=== PATIENT | male | born 1945 | race Caucasian/White ===

== ENCOUNTER 2016-12-15 17:57 | Inpatient (IN) | payer OTHER, MEDICARE ==
[~2016-12-15] VITALS: Ht 177.8 cm; Wt 91.8 kg
[~2016-12-15 17:57] MED LIST: ASPI81TA28 PO; DBT/5 PO; EZET10TA47 PO; HYDR25TA4 PO; LISI-792 PO; METF1000 PO; METO-551 PO; SIMV20TA2 PO
[2016-12-15] MEDS ORDERED: ACETAMINOPHEN 500 MG TAB PO STA (18:16)
[2016-12-15] MEDS ORDERED: SODIUM CHLORIDE 0.9% 1000ML 1,000 ML IV STA (18:16)
--- NOTE | 2016-12-15 18:44 | EMERGENCY ROOM VISIT NOTE ---
History Report prepared by Fox: Flip Crain Under the Supervision of: Dr. Giancarlo Marcano D.O. First contact with patient: 18:11 Chief Complaint: CONFUSION Stated Complaint: DOESNT KNOW STUFF WORRIED ABOUT STROKE Nursing Triage Summary: Pt presents accompanied by who is concerned pt had a stroke. states pt is confused. Left sided facial droop. Grandson states pt started stumbling around noon, "doing weird things around 1500." Denies hx of CVA. History of Present Illness The patient is a 71 year old male who presents to the Emergency Room with complaints of persistent stroke-like symptoms that started 6 hours ago. Per patient's , the patient developed a cold yesterday and complained of cough, congestion, and runny nose. Per patient's grandson, the patient was having difficulty keeping his balance and stumbling in the hallway when they were at [facility] earlier today. About three hours ago, the patient's grandson noted that he had some difficulty getting into the car and then seemed slightly confused on the car ride back. Upon arriving back at the patient's house, the patient seemed very confused and was speaking about [place]. At this time, the patient complains of a headache. The patient denies any urinary symptoms at this time, but the patient's grandson thinks the patient was urinating more frequently than normal throughout the day. The patient denies chest pain, shortness of breathing, neck pain, nausea, or vomiting at this time. Source of History: patient, family Onset: 6 hours ago Position: other (global) Timing: other (persistent) Associated Symptoms: + cough, + headache, No SOB, No chest pain, No nausea, No neck pain, No vomiting Note: Other associated symptoms: cold-like symptoms, congestion, runny nose, difficulty with balance/ stumbling, confusion, Review of Systems See HPI for pertinent positives & negatives. A total of 10 systems reviewed and were otherwise negative. Past Medical & Surgical Medical Problems: (1) Altered mental status (2) Back surgery (3) Carpal tunnel syndrome Family History No pertinent family history Social History Smoking Status: Never Smoker Marital Status: Housing Status: lives with significant other Occupation Status: retired Current/Historical Medications Scheduled Aspirin (Aspirin Ec), 81 MG PO DAILY Glyburide (Diabeta), 7.5 MG PO BID Hydrochlorothiazide (Hctz), 25 MG PO Q2D Lisinopril (Zestril), 20 MG PO BID Metformin Hcl (Glucophage), 1,000 MG PO BIDM Metoprolol Tartrate (Lopressor), 50 MG PO BID Simvastatin (Zocor), 20 MG PO HS Allergies Coded Allergies: Pregabalin (Verified Allergy, Unknown, disorientation, 12/15/16) Physical Exam Vital Signs Date Time Temp Pulse Resp B/P Pulse Ox O2 Delivery O2 Flow Rate FiO2 12/15/16 20:25 36.9 92 18 141/76 98 Room Air 12/15/16 18:25 98 Room Air 12/15/16 18:24 110 12/15/16 18:09 37.6 115 18 165/78 97 Room Air Physical Exam GENERAL: Patient is awake, alert, slow to answer questions, but does not appear to be in pain or uncomfortable. EYES: The conjunctivae are clear. The pupils are round and reactive. EARS, NOSE, MOUTH AND THROAT: The nose is without any evidence of any deformity. Mucous membranes are dry tongue is midline NECK: The neck is nontender and supple. RESPIRATORY: Lung sounds diminished throughout, scattered rhonchi, no tachypnea or conversational dyspnea was appreciated. CARDIOVASCULAR: Tachycardic but regular, no definite murmur was noted to oscillation. GASTROINTESTINAL: The abdomen is soft. Bowel sounds are present in all quadrants. Abdomen is nontender BACK: No midline tenderness or or step-off noted range of motion in flexion extension as well as rotation no signs of muscle spasm noted MUSCULOSKELETAL/EXTREMITIES: There is no evidence of gross deformity full range of motion is noted in the hips and shoulders SKIN: There is no obvious evidence of any rash. There are no petechiae, pallor or cyanosis noted. NEUROLOGIC: Patient is awake alert and oriented to person and place, but appears to be somewhat confused to situation, strength was symmetric, there was no facial droop appreciated. Medical Decision & Procedures ER Provider Diagnostic Interpretation: Radiology results as stated below per my review and radiologist interpretation: SINGLE VIEW CHEST CLINICAL HISTORY: Sepsis. FINDINGS: An AP, portable, upright chest radiograph is compared to study dated 09/30/2012. The examination is degraded by portable technique and patient rotation. The heart is top normal for projection. There is atherosclerotic calcification of the thoracic aorta. The lungs and pleural spaces are clear. No pneumothorax is seen. The skeletal structures are osteopenic. The bony thorax is grossly intact. IMPRESSION: No acute cardiopulmonary abnormality. Electronically signed by: Zeeshan Mendoza M.D. 12/15/2016 6:44 PM Dictated Date/Time: 12/15/2016 6:[address] SCAN OF THE BRAIN WITHOUT IV CONTRAST CLINICAL HISTORY: Change in mental status. COMPARISON STUDY: CT of the brain dated 04/29/2013. TECHNIQUE: Unenhanced axial CT scan of the brain is performed from the vertex to the skull base. CT DOSE: 614.27 mGy.cm FINDINGS: Brain parenchyma: There are age-related involutional changes noting moderate patchy subcortical and periventricular microangiopathic change. There is no hemorrhage, mass effect, or evidence of acute territorial ischemia by CT criteria. Sales-white matter is preserved. No extra-axial fluid collection is seen. Ventricles, sulci, cisterns: Prominent secondary to involutional change. Intracranial vasculature: There is atherosclerotic calcification of the cavernous carotid arteries. Calvarium: Unremarkable. Sinuses and mastoids: There is trace mucosal thickening within the left maxillary antrum, as well as the left ethmoid and left frontal sinuses. The remaining visualized paranasal sinuses are clear. The mastoid air cells are well pneumatized. Orbits: The bony orbits are grossly intact. IMPRESSION: There is no hemorrhage, mass effect, or evidence of acute territorial ischemia by CT criteria. Electronically signed by: Zeeshan Mendoza M.D. 12/15/2016 6:55 PM Dictated Date/Time: 12/15/2016 6:51 PM Laboratory Results 12/15/16 18:20 Red Blood Count 4.41, Mean Corpuscular Volume 92.3, Mean Corpuscular Hemoglobin 31.7, Mean Corpuscular Hemoglobin Concent 34.4, Mean Platelet Volume 10.7, Neutrophils (%) (Auto) 78.7, Lymphocytes (%) (Auto) 13.3, Monocytes (%) (Auto) 7.3, Eosinophils (%) (Auto) 0.1, Basophils (%) (Auto) 0.2, Neutrophils # (Auto) 7.88, Lymphocytes # (Auto) 1.33, Monocytes # (Auto) 0.73, Eosinophils # (Auto) 0.01, Basophils # (Auto) 0.02 12/15/16 18:20 Test 12/15/16 18:10 12/15/16 18:20 12/15/16 18:30 12/15/16 18:47 Bedside Glucose 305 mg/dl (70-99) White Blood Count 10.01 K/uL (4.8-10.8) Red Blood Count 4.41 M/uL (4.7-6.1) Hemoglobin 14.0 g/dL (14.0-18.0) Hematocrit 40.7 % (42-52) Mean Corpuscular Volume 92.3 fL (80-100) Mean Corpuscular Hemoglobin 31.7 pg (25-34) Mean Corpuscular Hemoglobin Concent 34.4 g/dl (32-36) Platelet Count 95 K/uL (130-400) Mean Platelet Volume 10.7 fL (7.4-10.4) Neutrophils (%) (Auto) 78.7 % Lymphocytes (%) (Auto) 13.3 % Monocytes (%) (Auto) 7.3 % Eosinophils (%) (Auto) 0.1 % Basophils (%) (Auto) 0.2 % Neutrophils # (Auto) 7.88 K/uL (1.4-6.5) Lymphocytes # (Auto) 1.33 K/uL (1.2-3.4) Monocytes # (Auto) 0.73 K/uL (0.11-0.59) Eosinophils # (Auto) 0.01 K/uL (0-0.5) Basophils # (Auto) 0.02 K/uL (0-0.2) RDW Standard Deviation 43.3 fL (36.4-46.3) RDW Coefficient of Variation 12.9 % (11.5-14.5) Immature Granulocyte % (Auto) 0.4 % Immature Granulocyte # (Auto) 0.04 K/uL (0.00-0.02) Platelet Estimate DECREASED Erythrocyte Sedimentation Rate 18 mm/hr (0-14) Anion Gap 6.0 mmol/L (3-11) Est Creatinine Clear Calc Drug Dose 55.9 ml/min Estimated GFR () 58.6 Estimated GFR (Non- 50.5 BUN/Creatinine Ratio 12.8 (10-20) Calcium Level 9.6 mg/dl (8.5-10.1) Phosphorus Level 1.5 mg/dl (2.5-4.9) Magnesium Level 1.9 mg/dl (1.8-2.4) Total Bilirubin 0.6 mg/dl (0.2-1) Aspartate Amino Transf (AST/SGOT) 16 U/L (15-37) Alanine Aminotransferase (ALT/SGPT) 24 U/L (12-78) Alkaline Phosphatase 85 U/L (45-117) Total Creatine Kinase 110 U/L (39-308) Creatine Kinase MB 1.6 ng/ml (0.5-3.6) Creatine Kinase MB Ratio 1.5 (0-3.0) Troponin I < 0.015 ng/ml (0-0.045) C-Reactive Protein 1.07 mg/dl (0-0.29) Pro-B-Type Natriuretic Peptide 121 pg/ml (0-900) Total Protein 8.0 gm/dl (6.4-8.2) Albumin 4.2 gm/dl (3.4-5.0) Globulin 3.8 gm/dl (2.5-4.0) Albumin/Globulin Ratio 1.1 (0.9-2) Lipase 192 U/L (73-393) Beta-Hydroxybutyric Acid 1.01 mg/dL (0.2-2.81) Influenza Type A (RT-PCR) Neg for Influ A (NEG) Influenza Type A Antigen Neg for Influ A (NEG) Influenza Type B Antigen Neg for Influ B (NEG) Influenza Type B (RT-PCR) Neg for Influ B (NEG) Bedside Lactic Acid Venous 2.63 mmol/L (0.90-1.70) Test 12/15/16 19:43 12/15/16 20:00 Prothrombin Time 11.3 SECONDS (9.0-12.0) Prothromb Time International Ratio 1.1 (0.9-1.1) Activated Partial Thromboplast Time 25.6 SECONDS (21.0-31.0) Partial Thromboplastin Ratio 1.0 Venous Blood pH 7.44 (7.36-7.41) Venous Blood Partial Pressure CO2 39 mmHg (38.0-50.0) Venous Blood Partial Pressure O2 34 mmHg Venous Blood HCO3 26 mmol/L Venous Blood Oxygen Saturation 65.5 % Venous Blood Base Excess 1.9 mmol/L Thyroid Stimulating Hormone (TSH) 0.763 uIu/ml (0.300-4.500) Free Thyroxine 0.81 ng/dl (0.80-1.60) Urine Color YELLOW Urine Appearance CLEAR (CLEAR) Urine pH 5.5 (4.5-7.5) Urine Specific [place] 1.015 (1.000-1.030) Urine Protein NEG (NEG) Urine Glucose (UA) 3+ (NEG) Urine Ketones NEG (NEG) Urine Occult Blood TRACE (NEG) Urine Nitrite NEG (NEG) Urine Bilirubin NEG (NEG) Urine Urobilinogen NEG (NEG) Urine Leukocyte Esterase NEG (NEG) Urine WBC (Auto) 0 /hpf (0-5) Urine RBC (Auto) 0-4 /hpf (0-4) Urine Hyaline Casts (Auto) 0 /lpf (0-5) Urine Epithelial Cells (Auto) 0-5 /lpf (0-5) Urine Bacteria (Auto) NEG (NEG) Laboratory results per my review. Medications Administered Medications (Trade) Dose Ordered Sig/Bryson Route Start Time Stop Time Status Last Admin Dose Admin Sodium Chloride (Nss 1000ml) 1,000 ml @ 999 mls/hr Q1H1M STAT IV 12/15/16 18:16 12/15/16 19:16 DC 12/15/16 18:34 999 MLS/HR Acetaminophen 1000 mg 1,000 mg NOW STAT PO 12/15/16 18:16 12/15/16 18:17 DC 12/15/16 18:34 1,000 MG Ceftriaxone Sodium/Dextrose (Rocephin Inj/D5 50ml) 70 ml @ 100 mls/hr ONE STAT IV 12/15/16 19:56 12/15/16 20:37 DC 12/15/16 20:41 100 MLS/HR ECG Indication: altered mental status Rate (beats per minute): 104 Rhythm: sinus tachycardia Findings: 1st degree AV block, RBBB (incomplete RBBB pattern noted), other (no PVCs ) Comparison ECG Date: increased rate otherwise no change when compared to EKG from April 30, 2012 ED Course 1810: The patient was evaluated in room B1. A complete history and physical examination were performed. 1815: Ordered Tylenol Tab 1000 mg PO, NSS 1000 ml @ 999 mls/hr IV. 1929: At this time, I reevaluated the patient and he was resting. 1955: Ordered Ceftriaxone Sodium 2000 mg/ Dextrose 70 ml @ 100 mls/hr IV. 2015: At this time, I updated the patient on test findings and his results. 2027: At this time, I discussed the patient's case with Dr. Menjivar / [facility] [place] [facility] and they agreed to accept the patient for further evaluation. Medical Decision Differential diagnosis: Etiologies such as metabolic, infection, hypoglycemia, electrolyte abnormalities , cardiac sources, intracerebral event, toxicologic, neurologic, as well as others were entertained. Nursing notes reviewed. Additional history is obtained from the patient's family members. The patient is a 71-year-old male who presented to emergency department for an evaluation of cough and altered mental status. The patient was found have a low- grade fever and he's been complaining of cough and sore throat over the last few days. The patient has been having a slow decline in his mental status over the last few months according to his son but his feels that his condition has changed significantly over the last 24 hours. The patient did not have meningismus. I discussed the patient's laboratory and radiographic studies with him and his family members. He was treated with IV fluids and IV antibiotics in the emergency department. On subsequent reevaluation he was only somewhat improved. The patient has a history of thrombocytopenia. His platelet count was still low in the emergency department this evening. Because the patient's ongoing symptoms I discussed his case with the on-call [facility] hospitalist group. I'm unsure if this represents an infectious process or possibly a neurologic process. I feel further observation as well as possible further neuroimaging may be beneficial. Consults Time Called: 2022 Consulting Physician: Dr. Menjivar/ Dr. Cowan - [facility] [place] Returned Call: 2027 At this time, I discussed the patient's case with Dr. Menjivar / Dr. Cowan and they agreed to accept the patient for further evaluation. Impression Primary Impression: Altered mental status Additional Impression: Fever Scribe Attestation The scribe's documentation has been prepared under my direction and personally reviewed by me in its entirety. I confirm that the note above accurately reflects all work, treatment, procedures, and medical decision making performed by me. Departure Information Dispostion Being Evaluated By Hospitalist Олег Arambula M.D. (PCP) Problem Qualifiers Primary Impression: Altered mental status Altered mental status type: unspecified Qualified Codes: R41.82 - Altered mental status, unspecified Additional Impression: Fever Fever type: unspecified Qualified Codes: R50.9 - Fever, unspecified
--- NOTE | 2016-12-15 18:56 | DIAGNOSTIC IMAGING REPORT ---
CT SCAN OF THE BRAIN WITHOUT IV CONTRAST CLINICAL HISTORY: Change in mental status. COMPARISON STUDY: CT of the brain dated 04/29/2013. TECHNIQUE: Unenhanced axial CT scan of the brain is performed from the vertex to the skull base. CT DOSE: 614.27 mGy.cm FINDINGS: Brain parenchyma: There are age-related involutional changes noting moderate patchy subcortical and periventricular microangiopathic change. There is no hemorrhage, mass effect, or evidence of acute territorial ischemia by CT criteria. Sales-white matter is preserved. No extra-axial fluid collection is seen. Ventricles, sulci, cisterns: Prominent secondary to involutional change. Intracranial vasculature: There is atherosclerotic calcification of the cavernous carotid arteries. Calvarium: Unremarkable. Sinuses and mastoids: There is trace mucosal thickening within the left maxillary antrum, as well as the left ethmoid and left frontal sinuses. The remaining visualized paranasal sinuses are clear. The mastoid air cells are well pneumatized. Orbits: The bony orbits are grossly intact. IMPRESSION: There is no hemorrhage, mass effect, or evidence of acute territorial ischemia by CT criteria. Electronically signed by: Zeeshan Mendoza M.D. 12/15/2016 6:55 PM Dictated Date/Time: 12/15/2016 6:51 PM
[2016-12-15 19:07] LABS: HEMATOCRIT 40.7 % (42-52); MEAN CELL VOLUME 92.3 fL (80-100); MEAN CORPUSCULAR HEMOGLOBIN 31.7 pg (25-34); MEAN CORPUSCULAR HGB CONC 34.4 g/dl (32-36); RED BLOOD COUNT 4.41 M/uL (4.7-6.1); WHITE BLOOD COUNT 10.01 K/uL (4.8-10.8)
[2016-12-15 19:30] LABS: ALT/SGPT 24 U/L (12-78); AST/SGOT 16 U/L (15-37); BLOOD UREA NITROGEN 18 mg/dl (7-18); BUN/CREATININE RATIO 12.8 (10-20); CALCIUM 9.6 mg/dl (8.5-10.1); CARBON DIOXIDE 29 mmol/L (21-32); CHLORIDE 104 mmol/L (98-107); GLUCOSE 305 mg/dl (70-99); MAGNESIUM 1.9 mg/dl (1.8-2.4); POTASSIUM 3.6 mmol/L (3.5-5.1); SODIUM 139 mmol/L (136-145)
[2016-12-15 19:36] LABS: MEAN PLATELET VOLUME 10.7 fL (7.4-10.4); PLATELET COUNT 95 K/uL (130-400)
[2016-12-15 19:37] LABS: BASO % 0.2 %; BASO ABS # 0.02 K/uL (0-0.2); COMPLETE YES; EOS % 0.1 %; IG% 0.4 %; LYMPH % 13.3 %; LYMPH ABS # 1.33 K/uL (1.2-3.4); MONO % 7.3 %; NEUT % 78.7 %; PLT ESTIMATE DECREASED
[2016-12-15 19:46] LABS: ALB/GLOB RATIO 1.1 (0.9-2); ALKALINE PHOSPHATASE 85 U/L (45-117); BETA-HYDROXYBUTYRATE 1.01 mg/dL (0.2-2.81); C-REACTIVE PROTEIN 1.07 mg/dl (0-0.29); CKMB/CK RATIO 1.5 (0-3.0); PHOSPHORUS 1.5 mg/dl (2.5-4.9)
[2016-12-15] MEDS ORDERED: CEFTRIAXONE SOD INJ 2,000 MG in DEXTROSE 5% 50ML 50 ML IV STA (19:56)
[2016-12-15 20:05] LABS: INR 1.1 (0.9-1.1); PROTHROMBIN TIME (PATIENT) 11.3 SECONDS (9.0-12.0)
[2016-12-15 20:16] LABS: URINE APPEARANCE CLEAR (CLEAR); URINE BILIRUBIN NEG (NEG); URINE COLOR YELLOW; URINE EPITHELIAL CELL AUTO 0-5 /lpf (0-5); URINE NITRITE NEG (NEG); URINE PH 5.5 (4.5-7.5); URINE SPECIFIC GRAVITY 1.015 (1.000-1.030); UROBILINOGEN NEG (NEG)
[2016-12-15 20:17] LABS: MANUAL MICROSCOPIC REQUIRED? NO; REVIEW REQ? NO
[2016-12-15 20:19] LABS: VEN BLD GAS O2 SATURATION 65.5 %; VEN BLOOD GAS BASE EXCESS 1.9 mmol/L
[2016-12-15 20:52] LABS: THYROID STIMULATING HORMONE 0.763 uIu/ml (0.300-4.500)
[2016-12-15] MEDS ORDERED: POTASSIUM PHOS 3 MMOL/1 ML INFUSION IV STA (21:17)
[2016-12-15] MEDS ORDERED: DEXTROSE 50% 50 ML SYR IV PRN (21:30)
[2016-12-15] MEDS ORDERED: GLUCAGON FOR INJ 1 MG VIAL SQ PRN (21:30)
[2016-12-15] MEDS ORDERED: GLUCOSE 10 TABS/TUBE PO PRN (21:30)
[2016-12-15] MEDS ORDERED: ONDANSETRON INJ 2 MG/ML 2 ML VIAL IV PRN (21:30)
[2016-12-15] MEDS ORDERED: GLUCOSE 40% GEL 15 GM TUBE PO PRN (21:30)
[2016-12-15] MEDS ORDERED: POTASSIUM PHOSPHATE INJ 30 MMOL in SODIUM CHLORIDE 0.9% 500ML 500 ML IV STA (21:30)
[2016-12-15 21:39] LABS: INFLUENZA A PCR Neg for Influ A (NEG); INFLUENZA B PCR Neg for Influ B (NEG)
--- NOTE | 2016-12-15 21:43 | History and Physical ---
History & Physical Date & Time of Service: December 15, 2016 at 21:24 Chief Complaint: Doesnt Know Stuff Worried About Stroke Primary Care Physician: Олег Mcfarlane M.D. History of Present Illness Source: patient, family, spouse The patient is a 71-year-old male whose family has noted a gradual deterioration in mental functioning over the past year, and who has had a more abrupt bladder changer the past 24 hours. He reports some sinus congestion, a deeper voice than usual, and family reports increased frequency of urination. Patient denies any difficulty swallowing, hematuria, dysuria, flank pain or pelvic pain, change in bowel function or blood in stool. He did have a recent in the family, and the family had some questions as to whether this may have been a contributing factor in the past 24 hours. He does report that his legs seem to get generally weak toward the end of the day, but denies any focal weakness in arms or legs. Past Medical/Surgical History Medical Problems: (1) Back surgery Status: Resolved (2) Carpal tunnel syndrome Status: Chronic Family History No pertinent family history Social History Smoking Status: Never Smoker Smokeless Tobacco Use: No Alcohol Use: none Drug Use: none Marital Status: Housing status: lives with family Occupational Status: retired Immunizations History of Influenza Vaccine: Yes History of Tetanus Vaccine?: Yes History of Pneumococcal: Yes Pneumococcal Date: Nov 03, 2012 History of Hepatitis B Vaccine: No Multi-Drug Resistant Organisms History of MDRO: No Allergies Coded Allergies: Pregabalin (Verified Allergy, Unknown, disorientation, 12/15/16) Home Medications Scheduled Aspirin (Aspirin Ec), 81 MG PO DAILY Glyburide (Diabeta), 7.5 MG PO BID Hydrochlorothiazide (Hctz), 25 MG PO Q2D Lisinopril (Zestril), 20 MG PO BID Metformin Hcl (Glucophage), 1,000 MG PO BIDM Metoprolol Tartrate (Lopressor), 50 MG PO BID Simvastatin (Zocor), 20 MG PO HS Review of Systems The patient denies chest pain, palpitations, shortness of breath, lower extremity swelling, vision change, hearing change, sore throat, fevers, chills, sweats, weight change, fatigue, nausea, vomiting, abdominal pain, pelvic pain, blood in urine or stool, dysuria, lightheadedness, dizziness, headache, rash, abnormal bruising or bleeding, focal weakness, numbness or tingling in arms or legs, arthralgias or myalgias, back or neck pain, night sweats, or allergy symptoms. The review of systems is otherwise negative other than for that already noted above, and at least 10 systems have been reviewed. Physical Exam Vital Signs Date Time Temp Pulse Resp B/P Pulse Ox O2 Delivery O2 Flow Rate FiO2 12/15/16 20:25 36.9 92 18 141/76 98 Room Air 12/15/16 18:25 98 Room Air 12/15/16 18:24 110 12/15/16 18:09 37.6 115 18 165/78 97 Room Air The patient is awake, alert and oriented 3, face is flushed and appears dehydrated, lying in bed and in no acute distress. HEENT--PERRL, EOMI, mucous membranes and oropharynx dry. Neck--supple, no JVD or bruits, thyroid normal, trachea midline, no adenopathy. Heart--normal S1 and S2, no extra beats, no murmurs, rubs or gallops. Lungs--clear bilaterally with good air movement, no respiratory distress, no accessory muscle use. Abdomen--normal bowel sounds and soft, nontender and nondistended, no hernias or masses, no organomegaly. Extremities--no cyanosis, clubbing or edema. There are good distal pulses b/l. Dermatologic--normal skin turgor, normal color, warm and dry, no abnormal lymph nodes, no rash. Neurologic--cranial nerves II through XII grossly intact, motor and sensory examination normal. Rheumatologic--normal range of motion, nontender, muscles and joints. Psychiatric--normal affect. Diagnostics Laboratory Results Results Past 24 Hours Test 12/15/16 18:10 12/15/16 18:20 12/15/16 18:30 12/15/16 18:47 Range/Units Bedside Glucose 305 70-99 mg/dl White Blood Count 10.01 4.8-10.8 K/uL Red Blood Count 4.41 4.7-6.1 M/uL Hemoglobin 14.0 14.0-18.0 g/dL Hematocrit 40.7 42-52 % Mean Corpuscular Volume 92.3 80-100 fL Mean Corpuscular Hemoglobin 31.7 25-34 pg Mean Corpuscular Hemoglobin Concent 34.4 32-36 g/dl Platelet Count 95 130-400 K/uL Mean Platelet Volume 10.7 7.4-10.4 fL Neutrophils (%) (Auto) 78.7 % Lymphocytes (%) (Auto) 13.3 % Monocytes (%) (Auto) 7.3 % Eosinophils (%) (Auto) 0.1 % Basophils (%) (Auto) 0.2 % Neutrophils # (Auto) 7.88 1.4-6.5 K/uL Lymphocytes # (Auto) 1.33 1.2-3.4 K/uL Monocytes # (Auto) 0.73 0.11-0.59 K/uL Eosinophils # (Auto) 0.01 0-0.5 K/uL Basophils # (Auto) 0.02 0-0.2 K/uL RDW Standard Deviation 43.3 36.4-46.3 fL RDW Coefficient of Variation 12.9 11.5-14.5 % Immature Granulocyte % (Auto) 0.4 % Immature Granulocyte # (Auto) 0.04 0.00-0.02 K/uL Platelet Estimate DECREASED Erythrocyte Sedimentation Rate 18 0-14 mm/hr Sodium Level 139 136-145 mmol/L Potassium Level 3.6 3.5-5.1 mmol/L Chloride Level 104 98-107 mmol/L Carbon Dioxide Level 29 21-32 mmol/L Anion Gap 6.0 3-11 mmol/L Blood Urea Nitrogen 18 7-18 mg/dl Creatinine 1.40 0.60-1.40 mg/dl Est Creatinine Clear Calc Drug Dose 55.9 ml/min Estimated GFR () 58.6 Estimated GFR (Non- 50.5 BUN/Creatinine Ratio 12.8 10-20 Random Glucose 305 70-99 mg/dl Calcium Level 9.6 8.5-10.1 mg/dl Phosphorus Level 1.5 2.5-4.9 mg/dl Magnesium Level 1.9 1.8-2.4 mg/dl Total Bilirubin 0.6 0.2-1 mg/dl Aspartate Amino Transf (AST/SGOT) 16 15-37 U/L Alanine Aminotransferase (ALT/SGPT) 24 12-78 U/L Alkaline Phosphatase 85 45-117 U/L Total Creatine Kinase 110 39-308 U/L Creatine Kinase MB 1.6 0.5-3.6 ng/ml Creatine Kinase MB Ratio 1.5 0-3.0 Troponin I < 0.015 0-0.045 ng/ml C-Reactive Protein 1.07 0-0.29 mg/dl Pro-B-Type Natriuretic Peptide 121 0-900 pg/ml Total Protein 8.0 6.4-8.2 gm/dl Albumin 4.2 3.4-5.0 gm/dl Globulin 3.8 2.5-4.0 gm/dl Albumin/Globulin Ratio 1.1 0.9-2 Lipase 192 73-393 U/L Beta-Hydroxybutyric Acid 1.01 0.2-2.81 mg/dL Influenza Type A Antigen Neg for Influ A NEG Influenza Type B Antigen Neg for Influ B NEG Bedside Lactic Acid Venous 2.63 0.90-1.70 mmol/L Test 12/15/16 19:43 12/15/16 20:00 Range/Units Prothrombin Time 11.3 9.0-12.0 SECONDS Prothromb Time International Ratio 1.1 0.9-1.1 Activated Partial Thromboplast Time 25.6 21.0-31.0 SECONDS Partial Thromboplastin Ratio 1.0 Venous Blood pH 7.44 7.36-7.41 Venous Blood Partial Pressure CO2 39 38.0-50.0 mmHg Venous Blood Partial Pressure O2 34 mmHg Venous Blood HCO3 26 mmol/L Venous Blood Oxygen Saturation 65.5 % Venous Blood Base Excess 1.9 mmol/L Thyroid Stimulating Hormone (TSH) 0.763 0.300-4.500 uIu/ml Free Thyroxine 0.81 0.80-1.60 ng/dl Urine Color YELLOW Urine Appearance CLEAR CLEAR Urine pH 5.5 4.5-7.5 Urine Specific [place] 1.015 1.000-1.030 Urine Protein NEG NEG Urine Glucose (UA) 3+ NEG Urine Ketones NEG NEG Urine Occult Blood TRACE NEG Urine Nitrite NEG NEG Urine Bilirubin NEG NEG Urine Urobilinogen NEG NEG Urine Leukocyte Esterase NEG NEG Urine WBC (Auto) 0 0-5 /hpf Urine RBC (Auto) 0-4 0-4 /hpf Urine Hyaline Casts (Auto) 0 0-5 /lpf Urine Epithelial Cells (Auto) 0-5 0-5 /lpf Urine Bacteria (Auto) NEG NEG Microbiology Results 12/15/16 Blood Culture, Received Pending 12/15/16 Blood Culture, Received Pending Diagnostic Radiology Patient Name: PAYAM ARAUZ Unit Number: [id number] Dictated: 12/15/161850 Transcribed: 12/15/161851 EV Printed Date/Time: [~ rep prt dt]/[~ rep prt tm] [~ rep ct labl] - [~ rep ct ivnm] [facility] Radiology Department [place] [id number] Dictated: 12/15/161850 Transcribed: 12/15/161851 EV Printed Date/Time: [~ rep prt dt]/[~ rep prt tm] [~ rep ct labl] - [~ rep ct ivnm] [~ rep ct add3]] CT SCAN OF THE BRAIN WITHOUT IV CONTRAST CLINICAL HISTORY: Change in mental status. COMPARISON STUDY: CT of the brain dated 04/29/2013. TECHNIQUE: Unenhanced axial CT scan of the brain is performed from the vertex to the skull base. CT DOSE: 614.27 mGy.cm FINDINGS: Brain parenchyma: There are age-related involutional changes noting moderate patchy subcortical and periventricular microangiopathic change. There is no hemorrhage, mass effect, or evidence of acute territorial ischemia by CT criteria. Sales-white matter is preserved. No extra-axial fluid collection is seen. Ventricles, sulci, cisterns: Prominent secondary to involutional change. Intracranial vasculature: There is atherosclerotic calcification of the cavernous carotid arteries. Calvarium: Unremarkable. Sinuses and mastoids: There is trace mucosal thickening within the left maxillary antrum, as well as the left ethmoid and left frontal sinuses. The remaining visualized paranasal sinuses are clear. The mastoid air cells are well pneumatized. Orbits: The bony orbits are grossly intact. IMPRESSION: There is no hemorrhage, mass effect, or evidence of acute territorial ischemia by CT criteria. Electronically signed by: Zeeshan Mendoza M.D. 12/15/2016 6:55 PM Dictated Date/Time: 12/15/2016 6:51 PM The status of this report is Signed. Draft = Not yet reviewed or approved by Radiologist. Signed = Reviewed and approved by Radiologist. <AttendingPhy></AttendingPhy> <FamilyPhy>Олег Mcfarlane M.D.</FamilyPhy> < PrimaryPhy>Олег Mcfarlane M.D.</PrimaryPhy> <UnitNumber>[id number]</UnitNumber > <VisitNumber>[id number]</VisitNumber> <PatientName>PAYAM ARAUZ</ PatientName> <DateOfBirth>1945</DateOfBirth> <Location>C.EDB</Location> < ServiceDate>12/15/16</ServiceDate> <MNE>ESINDI</MNE> <OrderingPhy>Giancarlo Marcano D.O.</OrderingPhy> <OrderingPhyMNE>f rep ord dr winslow</OrderingPhyMNE> <DictatingPhyMNE>f rep dict dr winslow</DictatingPhyMNE> <CCListMNE>f rep ct mne</ CCListMNE> <AdmittingPhyMNE>f pt admit dr winslow</AdmittingPhyMNE> <AttendingPhyMNE >f pt attend dr winslow</AttendingPhyMNE> <ConsultingPhyMNE>f pt consult dr winslow</ConsultingPhyMNE> <FamilyPhyMNE>f pt fam dr winslow</FamilyPhyMNE> <OtherPhyMNE>f pt other dr winslow</OtherPhyMNE> < PrimaryPhyMNE>f pt prim care dr winslow</PrimaryPhyMNE> <ReferringPhyMNE>f pt referring dr winslow</ReferringPhyMNE> Patient Name: PAYAM ARAUZ Unit Number: [id number] Dictated: 12/15/161842 Transcribed: 12/15/161842 EV Printed Date/Time: [~ rep prt dt]/[~ rep prt tm] [~ rep ct labl] - [~ rep ct ivnm] [facility] [place] [address] Dictated: 12/15/161842 Transcribed: 12/15/161842 EV Printed Date/Time: [~ rep prt dt]/[~ rep prt tm] [~ rep ct labl] - [~ rep ct ivnm] [~ rep ct add3]] SINGLE VIEW CHEST CLINICAL HISTORY: Sepsis. FINDINGS: An AP, portable, upright chest radiograph is compared to study dated 09/30/2012. The examination is degraded by portable technique and patient rotation. The heart is top normal for projection. There is atherosclerotic calcification of the thoracic aorta. The lungs and pleural spaces are clear. No pneumothorax is seen. The skeletal structures are osteopenic. The bony thorax is grossly intact. IMPRESSION: No acute cardiopulmonary abnormality. Electronically signed by: Zeeshan Mendoza M.D. 12/15/2016 6:44 PM Dictated Date/Time: 12/15/2016 6:43 PM The status of this report is Signed. Draft = Not yet reviewed or approved by Radiologist. Signed = Reviewed and approved by Radiologist. <AttendingPhy></AttendingPhy> <FamilyPhy>Олег Mcfarlane M.D.</FamilyPhy> < PrimaryPhy>Олег Mcfarlane M.D.</PrimaryPhy> <UnitNumber>[id number]</UnitNumber > <VisitNumber>[id number]</VisitNumber> <PatientName>PAYAM ARAUZ</ PatientName> <DateOfBirth>1945</DateOfBirth> <Location>C.EDB</Location> < ServiceDate>12/15/16</ServiceDate> <MNE>ESINDI</MNE> <OrderingPhy>Giancarlo Marcano D.O.</OrderingPhy> <OrderingPhyMNE>f rep ord dr winslow</OrderingPhyMNE> <DictatingPhyMNE>f rep dict dr winslow</DictatingPhyMNE> <CCListMNE>f rep ct nayla</ CCListMNE> <AdmittingPhyMNE>f pt admit dr winslow</AdmittingPhyMNE> <AttendingPhyMNE >f pt attend dr winslow</AttendingPhyMNE> <ConsultingPhyMNE>f pt consult dr winslow</ConsultingPhyMNE> <FamilyPhyMNE>f pt fam dr winslow</FamilyPhyMNE> <OtherPhyMNE>f pt other dr winslow</OtherPhyMNE> < PrimaryPhyMNE>f pt prim care dr winslow</PrimaryPhyMNE> <ReferringPhyMNE>f pt referring dr winslow</ReferringPhyMNE> EKG EKG shows sinus tachycardia 104 bpm, left anterior fascicular block. Impression Assessment and Plan Altered mental status--family reports the gradual bladder changer the past year, with a more abrupt change in past [address] of the head without contrast is negative. We will order an MRI of the brain combo, MRA of the head without contrast, MRA of the neck combo. He'll be admitted to the telemetry unit for serial cardiac enzymes, cardiac rhythm monitoring and a 2-D echocardiogram with Dopplers. Sinusitis/upper respiratory infection/dehydration--patient will be placed on ceftriaxone 1 g IV daily, levofloxacin 500 mg IV every 24 hours, normal saline with KCl 20 mEq at 100 mils per hour. We'll follow serial CBC with differential , PRP and magnesium levels. Hold HCTZ and lisinopril. Diabetes mellitus--blood sugar on admission was 305. Continue glyburide 7.5 mg by mouth twice a day, place on Accu-Cheks before meals and at bedtime with NovoLog coverage scale. Hold metformin 1000 mg by mouth twice a day. Check hemoglobin A1c. Hypertension--continue metoprolol tartrate 50 mg by mouth twice a day with hold parameters, aspirin 81 mg by mouth daily, hold HCTZ 25 mg every 2 days and lisinopril 20 mg by mouth twice a day. If needed add amlodipine. Hypophosphatemia--place on K-Phos 30 mmol IV rider. Increased frequency of urination--initial urinalysis looks normal. Follow urine culture and sensitivity. May have element of BPH. If necessary can add tamsulosin at bedtime. May be secondary to hyperglycemia. Check a PSA. Hypercholesterolemia--continue simvastatin 20 mg by mouth at bedtime. Level of Care Telemetry Advanced Directives Existing Advance Directive: No Existing Living Will: No Existing Power of Home Appraiser: No Resuscitation Status FULL RESUSCITATION VTE Prophylaxis VTE Risk Assessment Done? Y/N: Yes Risk Level: Moderate Given or contraindicated: SCD's
--- NOTE | 2016-12-15 22:50 | DIAGNOSTIC IMAGING REPORT ---
MR ANGIOGRAM OF THE BRAIN CLINICAL HISTORY: Change in mental status. COMPARISON STUDY: CT of the brain dated 12/15/2016. TECHNIQUE: 3-D [id number] MR angiography of the intracranial circulation is performed. 3-D tumble views are created and assessed. IV contrast was not administered for this examination. The examination is degraded by motion artifact. FINDINGS: The kashia of [place] is developmentally complete. The internal carotid arteries are widely patent bilaterally, as are the anterior and middle cerebral arteries. The vertebrobasilar system and posterior cerebral arteries are widely patent. The right vertebral artery is dominant. The left vertebral artery is diminutive and terminates as the PICA. There is no aneurysm, high-grade stenosis, or focal vessel cutoff seen throughout the intracranial circulation. The brain parenchyma is normal as visualized. IMPRESSION: Unremarkable MR angiogram of the brain. Electronically signed by: Zeeshan Mendoza M.D. 12/15/2016 10:49 PM Dictated Date/Time: 12/15/2016 10:47 PM
[2016-12-15] MEDS ORDERED: GADAVIST IV PRN (23:30)
[2016-12-15 23:40] VITALS: BP 145/69; PULSE 75; TEMP 36.8; O2SAT 96; Ht 177.8 cm; Wt 91.8 kg
[2016-12-16] MEDS ORDERED: LEVOFLOXACIN / D5W 500 MG in PREMIXED IN D5W 100 ML IV SCH
[2016-12-16] MEDS: NSS + 20MEQ KCL 1000ML 1,000 ML IV SCH ×2 (00:40→10:43)
[2016-12-16 04:23] VITALS: BP 142/81; PULSE 76; TEMP 36.9; O2SAT 97
[2016-12-16 05:46] LABS: HEMATOCRIT 37.1 % (42-52); MEAN CELL VOLUME 92.8 fL (80-100); MEAN CORPUSCULAR HEMOGLOBIN 31.3 pg (25-34); MEAN CORPUSCULAR HGB CONC 33.7 g/dl (32-36); WHITE BLOOD COUNT 8.13 K/uL (4.8-10.8)
[2016-12-16 05:48] LABS: MEAN PLATELET VOLUME 10.7 fL (7.4-10.4); PLATELET COUNT 83 K/uL (130-400)
[2016-12-16 06:19] LABS: BLOOD UREA NITROGEN 14 mg/dl (7-18); CALCIUM 9.1 mg/dl (8.5-10.1); CARBON DIOXIDE 28 mmol/L (21-32); CHLORIDE 109 mmol/L (98-107); CKMB/CK RATIO 1.8 (0-3.0); GLUCOSE 212 mg/dl (70-99); MAGNESIUM 1.8 mg/dl (1.8-2.4); POTASSIUM 3.8 mmol/L (3.5-5.1); SODIUM 142 mmol/L (136-145)
[2016-12-16 06:25] LABS: ACANTHOCYTES 1+; BASO % 0.2 %; BASO ABS # 0.02 K/uL (0-0.2); COMPLETE YES; ECHINOCYTES 1+; EOS % 0.5 %; IG% 0.1 %; LYMPH % 14.6 %; LYMPH ABS # 1.19 K/uL (1.2-3.4); MONO % 10.6 %; OVALOCYTES 1+
--- NOTE | 2016-12-16 06:38 | DIAGNOSTIC IMAGING REPORT ---
NECK MRA HISTORY: Mental status change altered mental status TECHNIQUE: [id number] and gadolinium-enhanced MRA of the neck was performed both before and after the intravenous administration of contrast. All measurements were calculated based on NASCET criteria. COMPARISON STUDY: None. FINDINGS: The aortic arch and proximal great vessels are widely patent. The carotid systems show minimal scattered atelectatic change. No significant stenotic process is present. Area left vertebral artery is hypoplastic. Right vertebral artery is dominant. Basilar artery is not well seen although appears to be unremarkable. IMPRESSION: Small caliber and/or hypoplastic left vertebral artery minimal scattered atherosclerotic change. No significant stenotic process of the carotid systems. Electronically signed by: Juan Leonard M.D. 12/16/2016 6:36 AM Dictated Date/Time: 12/16/2016 6:34 AM
[2016-12-16 07:18] VITALS: BP 154/88; PULSE 79; TEMP 36.9; O2SAT 96
--- NOTE | 2016-12-16 07:20 | DIAGNOSTIC IMAGING REPORT ---
MRI OF THE BRAIN WITHOUT AND WITH IV CONTRAST CLINICAL HISTORY: altered mental status mental status change COMPARISON STUDY: No previous studies for comparison. TECHNIQUE: Utilizing a 1.5 Carolyn magnet and dedicated coil, multiplanar, multiecho imaging of the brain was performed pre and postcontrast administration. IV administration of 8.5 mL of Gadavist contrast was uneventful. FINDINGS: Mild age-related atrophy. No evidence for a component of acute ischemic change. Mild age-related chronic small vessel change. Ventricular system is midline. No evidence for abnormal postcontrast enhancement. IMPRESSION: Chronic and age-related change. No acute process. Electronically signed by: Juan Leonard M.D. 12/16/2016 7:18 AM Dictated Date/Time: 12/16/2016 7:17 AM
[2016-12-16 07:40] LABS: ESTIMATED AVERAGE GLUCOSE 137 mg/dl; HA1C FLAG Normal (Normal)
[2016-12-16] MEDS: INSULIN ASPART 100 UNITS/ML 3 ML PEN SC SCH ×2 (08:09→13:22)
[2016-12-16] MEDS ORDERED: LISINOPRIL 20 MG TAB PO SCH (09:00)
[2016-12-16] MEDS ORDERED: METOPROLOL TARTRATE 50 MG TAB PO SCH (09:00)
[2016-12-16] MEDS ORDERED: ASPIRIN 81 MG ECTAB PO SCH (09:00)
[2016-12-16 12:41] VITALS: BP 131/69; PULSE 66; TEMP 36.5; O2SAT 98
[2016-12-16 14:09] LABS: LYME DISEASE AB IGG NEG (NEG)
[2016-12-16 14:12] LABS: LYME DISEASE AB IGM NEG (NEG)
[2016-12-16 14:15] LABS: CKMB/CK RATIO 1.6 (0-3.0)
--- NOTE | 2016-12-16 14:35 | Discharge Instructions ---
Discharge Instructions Date of Service December 16, 2016. Admission Reason for Admission: Altered Mental Status Discharge Discharge Diagnosis / Problem: Dehydration, hyperglycemia, altered mental status Discharge Goals Goal(s): Decrease discomfort, Improve function, Diagnostic testing, Therapeutic intervention Activity Recommendations Activity Limitations: resume your previous activity (as tolerated) . Instructions / Follow-Up Instructions / Follow-Up You were admitted to the hospital after presenting with worsening confusion. Your work up for altered mental status included CT scan of the head, MRI of the brain, MRA of the head and neck and several lab tests, all of which were negative. Your labs did not show any signs of infection, although urine and blood cultures are still pending. You did present to the ER with mild dehydration and hyperglycemia, which may have contributed to your symptoms. You were treated with IV fluids and subcutaneous insulin, which improved both your dehydration and blood sugars. As your work up has come back normal and your confusion has resolved, you are now medically stable for discharge. Your IV antibiotics that were started due to a concern for acute sinusitis will be discontinued on discharge. Your CT of the head did not show much evidence of an acute sinusitis, and you deny being symptomatic, so antibiotics are not necessary at this point. Recommendations: *Keep yourself hydrated by drinking plenty of fluid, preferably water, especially if you are working outside. Please note that coffee is a diuretic and will not keep you hydrated. Medications: *No changes have been made to your medications. Please continue taking as prescribed. Follow up: *Follow up with your primary care provider in 1 week regarding your hospital stay. Please seek medical attention if you experience worsening confusion, delirium, loss of consciousness, elevated blood sugars, fevers, chills, sweats, chest pain , shortness of breath, nausea, vomiting, numbness or tingling. Current Hospital Diet Patient's current hospital diet: Diabetes Type 2 Diet Discharge Diet Recommended Diet: Diabetes Type 2 Diet Pending Studies Studies pending at discharge: yes List of pending studies: Urine culture, blood cultures Laboratory Results Hemoglobin A1c Test 12/16/16 05:23 Range/Units Estimated Average Glucose 137 mg/dl Hemoglobin A1c 6.4 H 4.5-5.6 % Medical Emergencies . Who to Call and When: Medical Emergencies: If at any time you feel your situation is an emergency, please call 911 immediately. . Non-Emergent Contact Non-Emergency issues call your: Primary Care Provider Call Non-Emergent contact if: you have a fever, you have any medication questions . Past History Medical & Surgical History: (1) Dehydration (2) Hyperglycemia (3) Altered mental status . "Provider Documentation" section prepared by Lea Frost. . VTE Core Measure Inpt VTE Proph given/why not?: SCD's
[2016-12-16 14:38] VITALS: BP 131/69; PULSE 66; TEMP 36.5; O2SAT 98
[2016-12-16 15:07] VITALS: BP 147/80; PULSE 67; TEMP 36.7; O2SAT 99
--- NOTE | 2016-12-16 15:10 | Medical Student: [facility] ---
Med Student Progress Note Date of Service December 16, 2016. Subjective Pt evaluation today including: conversation w/ patient, conversation w/ family , physical exam, chart review, lab review, review of studies, review of inpatient medication list Pain: None PO Intake: Normal diet Voiding: no voiding problems No acute events reported overnight. Mr. Ozuna reported feeling better; "80% better." His family still has concerns regarding his increased forgetfulness, but also feels Mr. Ozuna has improved during his hospital stay. Mr. Martinez would like to be discharged. Objective Vital Signs Date Time Temp Pulse Resp B/P Pulse Ox O2 Delivery O2 Flow Rate FiO2 12/16/16 14:38 36.5 66 20 98 Room Air 12/16/16 12:41 36.5 66 20 131/69 98 12/16/16 12:00 Room Air 12/16/16 12:00 Room Air 12/16/16 08:00 Room Air 12/16/16 07:18 36.9 79 18 154/88 96 Room Air 12/16/16 04:23 36.9 76 18 142/81 97 Room Air 12/16/16 04:00 Room Air 12/15/16 23:40 36.8 75 20 145/69 96 Room Air 12/15/16 20:25 36.9 92 18 141/76 98 Room Air 12/15/16 18:25 98 Room Air 12/15/16 18:24 110 12/15/16 18:09 37.6 115 18 165/78 97 Room Air Physical Exam Eyes: bilateral eyes EOMI, bilateral eyes PERRL, bilateral eyes normal inspection ENT: hearing grossly normal Neck: supple, no adenopathy, thyroid normal Respiratory/Chest: chest non-tender, lungs clear, normal breath sounds, no respiratory distress Cardiovascular: regular rate, rhythm, no edema, no gallop, no murmur Abdomen: normal bowel sounds, non tender, soft Neurologic/Psychiatric: alert, normal mood/affect Skin: normal color Laboratory Results Last 24 Hours Test 12/15/16 18:10 12/15/16 18:20 12/15/16 18:30 12/15/16 18:47 Bedside Glucose 305 mg/dl White Blood Count 10.01 K/uL Red Blood Count 4.41 M/uL Hemoglobin 14.0 g/dL Hematocrit 40.7 % Mean Corpuscular Volume 92.3 fL Mean Corpuscular Hemoglobin 31.7 pg Mean Corpuscular Hemoglobin Concent 34.4 g/dl Platelet Count 95 K/uL Mean Platelet Volume 10.7 fL Neutrophils (%) (Auto) 78.7 % Lymphocytes (%) (Auto) 13.3 % Monocytes (%) (Auto) 7.3 % Eosinophils (%) (Auto) 0.1 % Basophils (%) (Auto) 0.2 % Neutrophils # (Auto) 7.88 K/uL Lymphocytes # (Auto) 1.33 K/uL Monocytes # (Auto) 0.73 K/uL Eosinophils # (Auto) 0.01 K/uL Basophils # (Auto) 0.02 K/uL RDW Standard Deviation 43.3 fL RDW Coefficient of Variation 12.9 % Immature Granulocyte % (Auto) 0.4 % Immature Granulocyte # (Auto) 0.04 K/uL Platelet Estimate DECREASED Erythrocyte Sedimentation Rate 18 mm/hr Sodium Level 139 mmol/L Potassium Level 3.6 mmol/L Chloride Level 104 mmol/L Carbon Dioxide Level 29 mmol/L Anion Gap 6.0 mmol/L Blood Urea Nitrogen 18 mg/dl Creatinine 1.40 mg/dl Est Creatinine Clear Calc Drug Dose 55.9 ml/min Estimated GFR () 58.6 Estimated GFR (Non- 50.5 BUN/Creatinine Ratio 12.8 Random Glucose 305 mg/dl Calcium Level 9.6 mg/dl Phosphorus Level 1.5 mg/dl Magnesium Level 1.9 mg/dl Total Bilirubin 0.6 mg/dl Aspartate Amino Transf (AST/SGOT) 16 U/L Alanine Aminotransferase (ALT/SGPT) 24 U/L Alkaline Phosphatase 85 U/L Total Creatine Kinase 110 U/L Creatine Kinase MB 1.6 ng/ml Creatine Kinase MB Ratio 1.5 Troponin I < 0.015 ng/ml C-Reactive Protein 1.07 mg/dl Pro-B-Type Natriuretic Peptide 121 pg/ml Total Protein 8.0 gm/dl Albumin 4.2 gm/dl Globulin 3.8 gm/dl Albumin/Globulin Ratio 1.1 Lipase 192 U/L Beta-Hydroxybutyric Acid 1.01 mg/dL Influenza Type A (RT-PCR) Neg for Influ A Influenza Type A Antigen Neg for Influ A Influenza Type B Antigen Neg for Influ B Influenza Type B (RT-PCR) Neg for Influ B Bedside Lactic Acid Venous 2.63 mmol/L Test 12/15/16 19:43 12/15/16 20:00 12/16/16 05:23 12/16/16 07:31 Prothrombin Time 11.3 SECONDS Prothromb Time International Ratio 1.1 Activated Partial Thromboplast Time 25.6 SECONDS Partial Thromboplastin Ratio 1.0 Venous Blood pH 7.44 Venous Blood Partial Pressure CO2 39 mmHg Venous Blood Partial Pressure O2 34 mmHg Venous Blood HCO3 26 mmol/L Venous Blood Oxygen Saturation 65.5 % Venous Blood Base Excess 1.9 mmol/L Thyroid Stimulating Hormone (TSH) 0.763 uIu/ml Free Thyroxine 0.81 ng/dl Urine Color YELLOW Urine Appearance CLEAR Urine pH 5.5 Urine Specific [place] 1.015 Urine Protein NEG Urine Glucose (UA) 3+ Urine Ketones NEG Urine Occult Blood TRACE Urine Nitrite NEG Urine Bilirubin NEG Urine Urobilinogen NEG Urine Leukocyte Esterase NEG Urine WBC (Auto) 0 /hpf Urine RBC (Auto) 0-4 /hpf Urine Hyaline Casts (Auto) 0 /lpf Urine Epithelial Cells (Auto) 0-5 /lpf Urine Bacteria (Auto) NEG White Blood Count 8.13 K/uL Red Blood Count 4.00 M/uL Hemoglobin 12.5 g/dL Hematocrit 37.1 % Mean Corpuscular Volume 92.8 fL Mean Corpuscular Hemoglobin 31.3 pg Mean Corpuscular Hemoglobin Concent 33.7 g/dl Platelet Count 83 K/uL Mean Platelet Volume 10.7 fL Neutrophils (%) (Auto) 74.0 % Lymphocytes (%) (Auto) 14.6 % Monocytes (%) (Auto) 10.6 % Eosinophils (%) (Auto) 0.5 % Basophils (%) (Auto) 0.2 % Neutrophils # (Auto) 6.01 K/uL Lymphocytes # (Auto) 1.19 K/uL Monocytes # (Auto) 0.86 K/uL Eosinophils # (Auto) 0.04 K/uL Basophils # (Auto) 0.02 K/uL RDW Standard Deviation 43.5 fL RDW Coefficient of Variation 12.9 % Immature Granulocyte % (Auto) 0.1 % Immature Granulocyte # (Auto) 0.01 K/uL Ovalocytes 1+ Echinocytes 1+ Acanthocytes 1+ Sodium Level 142 mmol/L Potassium Level 3.8 mmol/L Chloride Level 109 mmol/L Carbon Dioxide Level 28 mmol/L Anion Gap 5.0 mmol/L Blood Urea Nitrogen 14 mg/dl Creatinine 1.00 mg/dl Est Creatinine Clear Calc Drug Dose 78.3 ml/min Estimated GFR () 88.0 Estimated GFR (Non- 75.9 BUN/Creatinine Ratio 14.0 Random Glucose 212 mg/dl Estimated Average Glucose 137 mg/dl Hemoglobin A1c 6.4 % Calcium Level 9.1 mg/dl Phosphorus Level 3.4 mg/dl Magnesium Level 1.8 mg/dl Total Creatine Kinase 97 U/L Creatine Kinase MB 1.7 ng/ml Creatine Kinase MB Ratio 1.8 Troponin I < 0.015 ng/ml Bedside Glucose 205 mg/dl Test 12/16/16 08:19 12/16/16 11:49 12/16/16 13:14 Ammonia 17.0 umol/L Vitamin B12 Level 629 pg/mL Folate 15.02 ng/mL Lyme Disease IgG Antibody NEG Lyme Disease IgM Antibody NEG Hepatitis C Antibody Screen NEG Bedside Glucose 193 mg/dl Total Creatine Kinase 106 U/L Creatine Kinase MB 1.7 ng/ml Creatine Kinase MB Ratio 1.6 Troponin I < 0.015 ng/ml Assessment and Plan Assessment and Plan: Mr. Ozuna is a 71y/o male with a past medical history of diabetes mellitus and HTN. While his family has reported cognitive decline over the past year, they brought him to the ED for a rapid decline in cognitive function in the preceding 24hrs. He has cognitive functioning has improved during his hospital stay. Acute alteration in mental status: improvement attributed to nutrition and hydration; consult neurology for dementia evaluation and possible medications. Diabetes mellitus: continue glyburide; consider additional medication due to poor blood glucose control during hospital stay. HTN: continue metoprolol. Hyperlipidemia: continue simvastatin.
--- NOTE | 2016-12-16 15:11 | Discharge Summary ---
Discharge Summary Date of Service December 16, 2016. (Lea Frost PA-C) Discharge Summary Admission Date: December 15, 2016 at 21:22 Discharge Date: December 16, 2016 Discharge Disposition: Home Principal Diagnosis: Altered mental status, dehdyration, hyperglycemia Immunizations: Have You Had Influenza Vaccine: Yes History of Tetanus Vaccine?: Yes History of Pneumococcal: Yes Pneumococcal Date: Nov 03, 2012 History of Hepatitis B Vaccine: No (Lea Frost PA-C) Medication Reconciliation Continued Medications: Aspirin (Aspirin Ec) 81 Mg Tab 81 MG PO DAILY Glyburide (Diabeta) 5 Mg Tab 7.5 MG PO BID, TAB Hydrochlorothiazide (Hctz) 25 Mg Tab 25 MG PO Q2D, TAB Lisinopril (Zestril) 20 Mg Tab 20 MG PO BID, TAB Metformin Hcl (Glucophage) 1,000 Mg Tab 1000 MG PO BIDM, TAB Metoprolol Tartrate (Lopressor) 50 Mg Tab 50 MG PO BID, TAB Simvastatin (Zocor) 20 Mg Tab 20 MG PO HS, TAB Referrals At Discharge Follow up Referrals: Family Practice Referral - Within 1 Week with Олег Mcfarlane M.D. Discharge Exam Patient reports feeling well. He denies any confusion, lightheadedness, sinus pressure, and congestion. He states that last night he had some post nasal drip and had a productive cough, but that the cough has improved this morning and is much less productive now. The patient denies fevers, chills, sweats, chest pain, palpitations, claudication, cough, wheezing, shortness of breath, nausea, vomiting, abdominal pain, dysuria, hematuria, urinary retention, paralysis, weakness, numbness and tingling. Review of Systems: Constitutional: No chills, No fatigue, No fever, No sweats, No weakness Eyes: No diplopia, No eye pain, No worsening of vision ENT: No hearing loss, No nasal symptoms, No sore throat, No trouble swallowing Respiratory: + cough, + sputum, No shortness of breath, No wheezing Cardiovascular: No chest pain, No claudication, No palpitations Abdomen: No nausea, No pain, No vomiting Musculoskeletal: No calf pain, No joint pain, No muscle pain Genitourinary - Male: No dysuria, No hematuria, No urinary retention Neurologic: No numbness/tingling, No paralysis, No weakness Integumentary: No color change, No itch, No rash Physical Exam: General Appearance: WD/WN, no apparent distress Eyes: normal inspection, PERRL, EOMI ENT: normal ENT inspection, hearing grossly normal, pharynx normal Neck: supple, no JVD, trachea midline Respiratory/Chest: lungs clear, normal breath sounds, no respiratory distress Cardiovascular: regular rate, rhythm, no gallop, no murmur Abdomen / GI: normal bowel sounds, non tender, soft Extremities: normal inspection, no calf tenderness, no pedal edema Neurologic/Psychiatric: alert, normal mood/affect, oriented x 3 Skin: normal color, warm/dry, no rash (Lea Frost ., YASMIN) Hospital Course 71-year-old male with a history of diabetes mellitus type 2, hypertension, and hyperlipidemia who presented to the ED with worsening confusion. Per family the patient has had a slow gradual decline over the past year but became acutely confused and disoriented prior to arrival. Altered mental status--dehydration and hyperglycemia on arrival may have been contributing. AMS now resolved. -Admitted to telemetry. pt remained in SR overnight with HR 70s-90s -Head CT negative in ED -MRI brain, MRA head and neck negative -Cardiac enzymes negative x 3 -UA negative for infection -Urine and blood cultures pending -Vitamin B12, folate, ammonia, and Lyme negative/WNL ?Sinusitis--pt denies any symptoms. Sinuses largely unremarkable on head CT -Received Rocephin and Levaquin x 1 dose each while in ED -No need for further abx Mild YAIMA--baseline creatinine 1.1. Resolved. Likely secondary to dehydration. Pt states he has been working outside a lot lately. Does not drink much water , drinks lots of coffee -Creatinine 1.4 on arrival -Received 1L IVF bolus in ED -NSS + 20 mEq KCl at 100 cc/hr -Repeat creatinine 1.0 on 12/16 Hypophosphatemia--resolved -Phosphorus 1.5 on arrival -Given K phos 30 mmol IV x 1 -Repeat phosphorus 3.4 Diabetes mellitus type 2 w/acute hyperglycemia--last HgbA1c checked 07/09/16 was 5.8 -BSG 305 on arrival -Hold glyburide and metformin -Insulin sliding scale -Check BSGs q ac and qhs -Rechecked HgbA1c was 6.4 on 12/16/16 HTN--stable -Continue Lopressor 50 mg PO BID, HCTZ 25 mg PO q2d and lisinopril 20 mg PO BID HLD -Continue simvastatin 20 mg PO qd Total Time Spent: Greater than 30 minutes This includes examination of the patient, discharge planning, medication reconciliation, and communication with other providers. (Lea Frost ., PA-C) I agree with PA assessment and plan and have seen and examined pt myself Pt resting comfortably in bed Unsure of etiolgoy of cognitive decline Back to baseline per family ?if from hyperglycemia and dehydration Stable for discharge home Alert and oriented x 3 (Sanjiv Su D.OLucretia) Discharge Instructions Please refer to the electronic Patient Visit Report (Discharge Instructions) for additional information. (Lea Frost ., PA-C) Additional Copies To Олег Mcfarlane M.D.
[2016-12-16] MEDS ORDERED: CEFTRIAXONE SOD INJ 1 GM in DEXTROSE 5% ADD-VANTAGE 50ML 50 ML IV SCH (20:00)
[2016-12-16] MEDS ORDERED: SIMVASTATIN 20 MG TAB PO SCH (21:00)
--- NOTE | 2016-12-18 08:11 | EDITING REQUIRED CODING QUERY ---
CODING QUERY To promote full compliance with coding requirements relating to patient care, provider participation is requested in all cases of desktop publishing operator uncertainty. Please assist us with the question(s) below: Coding Question(s): The Discharge Summary documents Mild YAIMA - baseline creatinine 1.1. Resolved. Likely secondary to dehydration. Creatinine 1.4 on arrival, Received 1L IVF bolus in ED, NSS + 20 mEq KCI at 100 cc/hr, Repeat Creatinine 1.0 on 12/16. Please clarify below regarding YAIMA, in your clinical opinion. (X ) YAIMA mean s Acute Kidney Injury and this was present and treated during the admission ( X ) Present on Admission ( ) Not Present on Admission ( ) YAIAM means Other: Specify meaning: ( ) There was no YAIMA present or treated during this admission Physician's Response(s): Thank you Cristina Nolen Principal Diagnosis: "_that condition established after study, to be chiefly responsible for occasioning the admission of the patient to the hospital for care." Co-Existing Principal Diagnosis: "_when two or more diagnoses equally meet the criteria for principal diagnosis as determined by the circumstances of admission, diagnostic work up, and/or therapy provided, and the Alphabetic Index, Tabular List, or another coding guideline does not provide sequencing direction, any one of the diagnoses may be sequenced first." "When the physician has documented what appears to be a current diagnosis in the body of the record, but has not included the diagnosis in the final diagnostic statement, the physician should be asked whether the diagnosis should be added." ([facility] 2 QTR90. p3-4)
== END 2016-12-16 15:18 | disposition home or self-care (01) | DRG 638 ==
LOC: ENRESERVTM → ENRESERVDT → C.EDB 17:57 → C.MED 21:22
PROVIDERS: ADMIT Hospitalist; ATTEND Hospitalist
DX: E11.65 Type 2 diabetes mellitus with hyperglycemia (principal); N17.9 Acute kidney failure, unspecified; E86.0 Dehydration; R41.82 Altered mental status, unspecified; E83.39 Other disorders of phosphorus metabolism; J01.90 Acute sinusitis, unspecified; R35.0 Frequency of micturition; I10 Essential (primary) hypertension; E78.5 Hyperlipidemia, unspecified; E78.00 Pure hypercholesterolemia, unspecified; Z79.899 Other long term (current) drug therapy; Z79.84 Long term (current) use of oral hypoglycemic drugs; Z79.82 Long term (current) use of aspirin

== ENCOUNTER → 2017-01-20 | Outpatient (CLI) | payer OTHER, MEDICARE ==
[~2017-01-20] MED LIST changes: -EZET10TA47 PO
[2017-01-20 12:15] LABS: BASO % 0.6 %; BASO ABS # 0.03 K/uL (0-0.2); COMPLETE YES; EOS % 1.9 %; HEMATOCRIT 39.7 % (42-52); LYMPH % 32.6 %; MEAN CELL VOLUME 94.5 fL (80-100); MEAN CORPUSCULAR HEMOGLOBIN 30.5 pg (25-34); MEAN CORPUSCULAR HGB CONC 32.2 g/dl (32-36); MEAN PLATELET VOLUME 10.4 fL (7.4-10.4); MONO % 7.7 %; NEUT % 57.2 %; PLATELET COUNT 103 K/uL (130-400); WHITE BLOOD COUNT 5.22 K/uL (4.8-10.8)
[2017-01-20 12:32] LABS: ALT/SGPT 22 U/L (12-78); AST/SGOT 18 U/L (15-37); BLOOD UREA NITROGEN 13 mg/dl (7-18); BUN/CREATININE RATIO 11.8 (10-20); CARBON DIOXIDE 29 mmol/L (21-32); CHLORIDE 109 mmol/L (98-107); CHOLESTEROL 89 mg/dl (0-200); GLUCOSE 99 mg/dl (70-99); POTASSIUM 3.9 mmol/L (3.5-5.1); SODIUM 144 mmol/L (136-145)
[2017-01-20 12:44] LABS: ALB/GLOB RATIO 1.2 (0.9-2); ALKALINE PHOSPHATASE 54 U/L (45-117); CHOLESTEROL/HDL RATIO 2.2; HDL CHOLESTEROL 40 mg/dl; LDL CHOLESTEROL CALCULATED 35 mg/dl; TRIGLYCERIDES 68 mg/dl (0-150); VERY LOW DENSITY LIPOPROT CALC 14 mg/dl
[2017-01-20 13:05] LABS: RATIO 57.5 mcg/mg (0-30.0)
[2017-01-20 13:10] LABS: ESTIMATED AVERAGE GLUCOSE 131 mg/dl; HA1C FLAG Normal (Normal)
== END | disposition home or self-care (01) ==
LOC: C.LABBFT 08:31
PROVIDERS: ATTEND Internal Medicine
DX: E11.9 Type 2 diabetes mellitus without complications (principal); Z12.5 Encounter for screening for malignant neoplasm of prostate; D61.818 Other pancytopenia; E78.5 Hyperlipidemia, unspecified

== ENCOUNTER → 2017-02-09 | Outpatient (CLI) | payer OTHER, MEDICARE ==
--- NOTE | 2017-02-09 09:58 | DIAGNOSTIC IMAGING REPORT ---
RIGHT KNEE RADIOGRAPHS WITH COMPARISON STANDING AP RADIOGRAPH OF THE LEFT KNEE CLINICAL HISTORY: Right knee pain. History of replacement. COMPARISON: Right knee radiograph November 01, 2012. FINDINGS: Comparison standing AP radiograph of the left knee demonstrates minimal medial compartment joint space narrowing. Alignment of the total right knee arthroplasty is anatomic. There is a small to moderate right knee joint effusion. No fracture or suspicious lesion is present. There is no periprosthetic lucency. IMPRESSION: 1. Status post total right knee arthroplasty. No periprosthetic fracture or lucency. 2. Suspected small to moderate right knee joint effusion. Electronically signed by: Simba Elizabeth M.D. 02/09/2017 9:57 AM Dictated Date/Time: 02/09/2017 9:55 AM
== END | disposition home or self-care (01) ==
LOC: C.RDSM 13:29
PROVIDERS: ATTEND Internal Medicine
DX: M25.561 Pain in right knee (principal); Z96.651 Presence of right artificial knee joint

== ENCOUNTER → 2017-03-26 | Outpatient (CLI) | payer OTHER, MEDICARE ==
[2017-03-27 16:13] LABS: ALBUMIN 4.1 G/DL (3.8-4.8); TOTAL PROTEIN 6.9 G/DL (6.2-8.3)
--- NOTE | 2017-04-07 12:11 | CODING QUERY MEDICAL NECESSITY ---
CQSUPPORTING DIAGNOSIS NEEDED A supporting diagnosis is required for the test/procedure performed on this patient in order for us to be reimbursed by the patient's insurance. Please provide a supporting diagnosis for the following test/procedure listed below next to the test name along with your signature. *If there is no additional diagnosis for this patient that would support the following test/procedure please document that below next to the test/procedure. Test(s)/Procedure(s) that require a supporting diagnosis: DOS 03/26/17 VITAMIN B12 TEST Provider Signature: Date: Thank you Jessica Gudino Health Information Management Once completed, please kindly fax back to [phone] For questions please call [phone]
== END | disposition home or self-care (01) ==
LOC: C.LABBFT 08:53
PROVIDERS: ATTEND Psychiatry & Neurology Neurology
DX: G62.9 Polyneuropathy, unspecified (principal); R26.89 Other abnormalities of gait and mobility

== ENCOUNTER → 2017-07-23 | Outpatient (CLI) | payer OTHER, MEDICARE ==
[2017-07-23 12:18] LABS: BASO % 0.4 %; BASO ABS # 0.03 K/uL (0-0.2); COMPLETE YES; EOS % 1.8 %; HEMATOCRIT 40.9 % (42-52); IG% 0.1 %; LYMPH % 27.7 %; MEAN CELL VOLUME 93.6 fL (80-100); MEAN CORPUSCULAR HEMOGLOBIN 31.6 pg (25-34); MEAN CORPUSCULAR HGB CONC 33.7 g/dl (32-36); MEAN PLATELET VOLUME 10.4 fL (7.4-10.4); MONO % 7.6 %; NEUT % 62.4 %; PLATELET COUNT 104 K/uL (130-400); RED BLOOD COUNT 4.37 M/uL (4.7-6.1); WHITE BLOOD COUNT 6.85 K/uL (4.8-10.8)
[2017-07-23 12:36] LABS: ALT/SGPT 27 U/L (12-78); AST/SGOT 20 U/L (15-37); BLOOD UREA NITROGEN 18 mg/dl (7-18); BUN/CREATININE RATIO 16.4 (10-20); CALCIUM 9.3 mg/dl (8.5-10.1); CARBON DIOXIDE 29 mmol/L (21-32); CHLORIDE 105 mmol/L (98-107); CREATININE 1.07 mg/dl (0.60-1.40); GLUCOSE 113 mg/dl (70-99); POTASSIUM 3.7 mmol/L (3.5-5.1); SODIUM 139 mmol/L (136-145)
[2017-07-23 12:42] LABS: ALB/GLOB RATIO 1.1 (0.9-2); ALKALINE PHOSPHATASE 59 U/L (45-117); CHOLESTEROL 92 mg/dl (0-200); CHOLESTEROL/HDL RATIO 2.6; HDL CHOLESTEROL 35 mg/dl; LDL CHOLESTEROL CALCULATED 38 mg/dl; TRIGLYCERIDES 95 mg/dl (0-150); VERY LOW DENSITY LIPOPROT CALC 19 mg/dl
[2017-07-23 12:51] LABS: ESTIMATED AVERAGE GLUCOSE 120 mg/dl; HA1C FLAG Normal (Normal)
== END | disposition home or self-care (01) ==
LOC: C.LABBFT 08:57
PROVIDERS: ATTEND Internal Medicine
DX: E11.29 Type 2 diabetes mellitus with other diabetic kidney complication (principal)

== ENCOUNTER 2018-10-08 15:56 | Inpatient (IN) ==
[2018-10-08 16:39] LABS: iSTAT Creatinine 1.1 mg/dl (0.6-1.3); iSTAT Hemoglobin 14.3 g/dl (14.0-18.0); iSTAT Ionized Calcium 1.24 mmol/l (1.12-1.32); iSTAT Potassium 3.3 mEq/L (3.3-5.0)
[2018-10-08 16:42] LABS: Basophils # (auto) 0.02 K/uL (0-0.2); Basophils % (auto) 0.3 %; Eosinophils # (auto) 0.06 K/uL (0-0.5); Hematocrit (blood only) 41.1 % (42-52); Hemoglobin 14.4 g/dL (14.0-18.0); Immature Granulocytes # (auto) 0.01 K/uL (0.00-0.02); Immature Granulocytes % (auto) 0.2 %; Lymphocytes # (auto) 0.68 K/uL (1.2-3.4); Lymphocytes % (auto) 11.6 %; Mean Corpuscular Volume 92.8 fL (80-100); Mean Platelet Volume 10.5 fL (7.4-10.4); Monocytes % (auto) 17.1 %; Neutrophils # (auto) 4.09 K/uL (1.4-6.5); Neutrophils % (auto) 69.8 %; Platelet Count 104 K/uL (130-400); RDW Coefficient of Variation 13.2 % (11.5-14.5); Red Blood Count 4.43 M/uL (4.7-6.1); White Blood Count 5.86 K/uL (4.8-10.8)
[2018-10-08 16:51] LABS: INR 1.1 (0.9-1.1); Partial Thromboplastin Ratio 0.9; Partial Thromboplastin Time 24.8 Seconds (21.0-31.0); Prothrombin Time 10.9 Seconds (9.0-12.0)
--- NOTE | 2018-10-08 16:51 | XRay Report ---
XR chest 1V portable CLINICAL HISTORY: Pt c/o Rt sided weakness COMPARISON STUDY: No previous studies for comparison. FINDINGS: The bones soft tissues and hemidiaphragms are normal. The cardiomediastinal silhouette is n ormal. The lungs are clear. The pulmonary vasculature is normal. IMPRESSION: Negative chest. The above report was generated using voice recognition software. It may contain grammatical, syntax or spelling errors. Electronically signed by: Juan Leonard M.D. 10/08/2018 4:49 PM
[2018-10-08 16:57] LABS: Alanine Aminotransferase 27 U/L (12-78); Albumin Level 4.2 gm/dl (3.4-5.0); Aspartate Aminotransferase 23 U/L (15-37); BUN Creatinine Ratio 12.7 (10-20); Blood Urea Nitrogen 16 mg/dl (7-18); Calcium 9.5 mg/dl (8.5-10.1); Carbon Dioxide 26 mmol/L (21-32); Chloride 102 mmol/L (98-107); Creatinine Clr Calc Pharmacy 59.6 ml/min; Est GFR (African American) 64.8; Est GFR (Non-African American) 55.9; Glucose 114 mg/dl (70-99); Magnesium 1.9 mg/dl (1.8-2.4); Potassium 3.3 mmol/L (3.5-5.1); Sodium 137 mmol/L (136-145)
[2018-10-08] MEDS ORDERED: POTASSIUM CHLORIDE 20 MEQ TABCR PO STA (17:00)
[2018-10-08] MEDS ORDERED: SODIUM CHLORIDE 0.9% 1000ML 1,000 ML IV ONE (17:00)
[2018-10-08] MEDS ORDERED: ONDANSETRON INJ 2 MG/ML 2 ML VIAL IV STA (17:01)
[2018-10-08 17:02] LABS: Alkaline Phosphatase 62 U/L (45-117); Bilirubin,Total 0.5 mg/dl (0.2-1); Creatine Kinase 118 U/L (39-308); Creatine Kinase MB 2.1 ng/ml (0.5-3.6); Globulin 4.1 gm/dl (2.5-4.0); Total Protein 8.3 gm/dl (6.4-8.2); Troponin I < 0.015 ng/ml (0-0.045)
[2018-10-08] MEDS ORDERED: OPTIRAY 320 125ml IV PRN (17:19)
[2018-10-08 17:27] LABS: Appearance Urine Clear (Clear); Bilirubin Urine Negative (Negative); Blood Urine Negative (Negative); Color Urine Yellow; Glucose Urine UA Negative (Negative); Ketones Urine Negative (Negative); Leukocyte Esterase Urine Negative (Negative); Nitrite Urine Negative (Negative); Protein Urine Negative (Negative); Specific Gravity Urine 1.012 (1.000-1.030); Urobilinogen Urine Negative (Negative)
--- NOTE | 2018-10-08 17:30 | CT Scan Report ---
CT head/brain wo con CT DOSE: 1409.92 mGy.cm HISTORY: Mental status change Stroke evaluation TECHNIQUE: Multiaxial CT images of the head were performed without the use of intravenous contrast. A dose lowering technique was utilized adhering to the principles of ALARA. Comparison: None. Findings: The paranasal sinuses and mastoid air cells are clear. The calvarium and skull base are int act. The ventricles and sulci are within normal limits. There is no mass, hematoma, midline shift, or acute infarct. Age-related atrophy and chronic small vessel change Impression: No acute intracranial abnormality. Age-related atrophy and chronic small vessel change The above report was generated using voice recognition software. It may contain grammatical, syntax or spelling errors. Electronically signed by: Juan Leonard M.D. 10/08/2018 5:28 PM
--- NOTE | 2018-10-08 17:41 | CT Scan Report ---
HEAD & NECK CTA HISTORY: Pt c/o Rt sided weakness TECHNIQUE: Multiaxial CT images of the head were performed following the intravenous administration o f contrast to evaluate the major cerebral vessels. Multiaxial CT images of the neck were also perform ed following the intravenous administration of contrast to evaluate the major cervical vessels. Maxim um intensity projection images were also obtained. A dose lowering technique was utilized adhering to the principles of ALARA. COMPARISON: Head and neck MRA 12/15/2016. FINDINGS: There is no mass, hematoma, midline shift, or acute infarct. Visualized intracranial internal carotid arteries, distal vertebral arteries, and basilar artery are widely patent. There is no significant s tenosis, occlusion, or aneurysm seen within the bilateral ACAs, MCAs, or dementia program director. 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 In addition, the left CLIENT APPLICATION SUPPORT ENGINEER originates from the left posterior indicating artery. These are con sidered to be normal variants. The aortic arch and proximal great vessels are widely patent. There is no occlusion or dissection i dentified within the bilateral common carotid, internal carotid, or vertebral arteries. Moderate left and mild right calcified plaque within the carotid bulbs. This results in mild focal stenosis within the takeoff of the left internal carotid artery of approximately 30%. No significant stenosis within the right internal carotid artery. Mild calcified plaque within the bilateral mid common carotid art eries without significant stenosis. Bilateral vertebral arteries are patent. IMPRESSION: 1. No significant stenosis, occlusion, or aneurysm within the [place]. 2. No significant stenosis, occlusion, or dissection identified within the right internal carotid art shilo, common carotid arteries or vertebral arteries.. 3. Mild focal stenosis at the takeoff of the left internal carotid artery of approximately 30% due to the calcified plaque.. Electronically signed by: Dariusz Armijo M.D. 10/08/2018 5:39 PM
--- NOTE | 2018-10-08 17:41 | CT Scan Report ---
HEAD & NECK CTA HISTORY: Pt c/o Rt sided weakness TECHNIQUE: Multiaxial CT images of the head were performed following the intravenous administration o f contrast to evaluate the major cerebral vessels. Multiaxial CT images of the neck were also perform ed following the intravenous administration of contrast to evaluate the major cervical vessels. Maxim um intensity projection images were also obtained. A dose lowering technique was utilized adhering to the principles of ALARA. COMPARISON: Head and neck MRA 12/15/2016. FINDINGS: There is no mass, hematoma, midline shift, or acute infarct. Visualized intracranial internal carotid arteries, distal vertebral arteries, and basilar artery are widely patent. There is no significant s tenosis, occlusion, or aneurysm seen within the bilateral ACAs, MCAs, or telemetry rn. 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 In addition, the left PROGRAM MANAGER ENVIRONMENTAL PLANNING originates from the left posterior indicating artery. These are con sidered to be normal variants. The aortic arch and proximal great vessels are widely patent. There is no occlusion or dissection i dentified within the bilateral common carotid, internal carotid, or vertebral arteries. Moderate left and mild right calcified plaque within the carotid bulbs. This results in mild focal stenosis within the takeoff of the left internal carotid artery of approximately 30%. No significant stenosis within the right internal carotid artery. Mild calcified plaque within the bilateral mid common carotid art eries without significant stenosis. Bilateral vertebral arteries are patent. IMPRESSION: 1. No significant stenosis, occlusion, or aneurysm within the [place]. 2. No significant stenosis, occlusion, or dissection identified within the right internal carotid art shilo, common carotid arteries or vertebral arteries.. 3. Mild focal stenosis at the takeoff of the left internal carotid artery of approximately 30% due to the calcified plaque.. Electronically signed by: Dariusz Armijo M.D. 10/08/2018 5:39 PM
[2018-10-08 19:26] LABS: Influenza A virus by PCR Neg for Influ A (Neg)
--- NOTE | 2018-10-08 20:19 | History & Physical Report ---
Date of Service October 08, 2018 Assessment & Plan (1) Weakness: 72-year-old male was admitted on 08 October 2018 for weakness, gait difficulties, and influenza B positive. Weakness, gait difficulty: Gait difficulties apparently on and off since summer 2016. Reportedly previous neurology workup was negative to include not having Parkinson's. Question of early dementia reported. Here is not focally weak in any particular extremity nor does he have clear stroke symptoms. CT head nonacute. CTA head and neck with mild stenosis of the left ICA otherwise unremarkable. No clear infectious symptoms. Portable chest x-ray is clear. Troponin negative and EKG is NSR 86, RBBB, LAFB. He is influenza B positive, likely causing some generalized fatigue/weakness. - We will defer neurology consult to day team depending on how he does overnight. Influenza B positive: As noted on admit. Likely from granddaughter with similar symptoms. Afebrile, WBC 5. - We will start on Tamiflu at 30 mg BID dose (for slight low CrCl). - Droplet isolation precautions. Urinary frequency: As well as incontinence and reported frequent UTIs. UA was clear. - May benefit from an outpatient workup. Thrombocytopenia: Admit platelets 104. Similar to July 2017. Unclear source. Hypokalemia: Admit K 3.3. Replaced, monitoring. Ongoing medical issues: - Hypertension: Continue home hydrochlorothiazide, lisinopril, and Lopressor. Is also on aspirin. - Hyperlipidemia: Continue home Zocor. - Diabetes type 2: At home is on metformin and glipizide. On admit, ordered sliding scale. - Mild confusion: Reportedly question of some baseline dementia. On admit, was A&O x 3. Code status: Full code. Diet: DM 2, heart healthy. DVT prophy: Lovenox daily. PT/OT: Ordered. Disbo: Admit to [facility]. (2) Ambulatory dysfunction: (3) Influenza B: (4) Urinary frequency: (5) Thrombocytopenia: (6) Hypokalemia: (7) Hypertension: (8) Hyperlipemia: (9) Diabetes mellitus: (10) Confusion: History of Present Illness Primary Care Provider: Олег Mcfarlane MD 72-year-old male presents with his with concerns for increased weakness throughout today. gives the great majority of the history. She says that starting around October 05 he did not seem to have as much strength. This worsened on day of admission, mostly consistent with not having as much strength to walk. She wonders if it is related to her granddaughter being recently diagnosed with influenza as well as strep throat. Patient himself says that he feels increased fatigue, mostly in his legs. He also complains of a right frontal headache and that the front of his head feels "hot". He denies any known fevers, nausea or vomiting, blurry vision, chest pain, shortness of breath, cough, or other cold-like symptoms. Otherwise, the patient does not have any other acute concerns. His does mention that he has had difficulties with his gait in the past. Apparently he underwent an evaluation with a "walking specialist" in the summer 2016. He was seen by various neurologists, told that it was not Parkinson's, but otherwise diagnosis was not apparently made. does wonder if he has some early dementia. She also says sometimes he becomes more disoriented in the evenings. On previous occasions this is occurred with UTIs. When asked, the patient says that he has some ongoing increased urinary frequency and a sense of urgency to get to the bathroom. However, he denies any dysuria, hematuria, or outright incontinence. PMH includes hypertension, hyperlipidemia, diabetes type 2, ? gait issues. At baseline he lives at home with his . His PCP is Dr. Mcfarlane. Allergies Allergy/AdvReac Type Severity Reaction Status Date / Time pregabalin Allergy Unknown disorientat Verified 12/15/16 18:18 ion Home Medications Home Medications Medication Instructions Recorded Confirmed Type aspirin [Aspir-81] 81 mg PO DAILY 10/08/18 10/08/18 History cyanocobalamin (vitamin B-12) 0 mcg PO DAILY 10/08/18 10/08/18 History [Vitamin B-12] glipizide [Glucotrol] 5 mg PO QPM 10/08/18 10/08/18 History glipizide [Glucotrol] 7.5 mg PO QAM 10/08/18 10/08/18 History hydrochlorothiazide 25 mg PO DAILY 10/08/18 10/08/18 History lisinopril [Zestril] 20 mg PO BID 10/08/18 10/08/18 History metformin [Glucophage] 1,000 mg PO BID 10/08/18 10/08/18 History metoprolol tartrate [Lopressor] 50 mg PO BID 10/08/18 10/08/18 History simvastatin [Zocor] 40 mg PO QPM 10/08/18 10/08/18 History oseltamivir 30 mg PO BID 4 Days #8 cap 10/09/18 Rx Past Med/Surg History Medical History History of UTI Social History Preferred Language: Italian Beliefs That Will Affect Care: None Current Living Situation: Spouse Other Information That Helps Us Care for You: No Feels Safe at Home: Yes Safety Concerns: Feels Safe At This Time Smoking Status: Smoker, status unknown Hx Alcohol Use: No Hx Substance Use: No Review of Systems Constitutional: See HPI. Eyes: Denies any visual loss or diplopia ENT: Denies any ear/nose/throat pain or difficulty speaking or swallowing Respiratory: Denies any dyspnea, cough, hemoptysis Cardiovascular: Denies any chest pain or feeling of edema Gastrointestinal: Denies any abdominal pain, nausea/vomiting/diarrhea Musculoskeletal: Denies any acute extremity pains, myalgias. Skin: Denies any known acute rashes or lesions Neuro: Denies acute focal weakness or numbness, or difficulties with speech or swallow. Psych: Denies any recent depression or anxiety Physical Exam Vital Signs (Past 24 Hours): Last Vital Signs Temp 37.1 C 10/08/18 16:02 Pulse 71 10/08/18 19:00 Resp 16 10/08/18 19:00 BP 145/69 H 10/08/18 19:00 Pulse Ox 96 10/08/18 19:00 Physical Exam: GENERAL: Awake, alert, well-appearing, easily conversational, in no acute distress HENT: Normocephalic, atraumatic. Oropharynx unremarkable. EYES: Normal conjunctiva. Sclera non-icteric. NECK: Inspection normal. Non-tender. Supple and full ROM. No nuchal rigidity. CARDIAC: +S1S2 RRR, no murmurs. RESPIRATORY: Clear to auscultation. No wheezes or rales. Normal respiratory effort. GI: +BS, soft, non-distended. No tenderness to palpation. No rebound or guarding. EXTREMITIES: No pedal edema or calf tenderness. Moving all extremities easily, spontaneously but slowly. Strength 5 out of 5 in all extremities. Distal sensation equal and intact. NEURO: No gross neuro deficits. Patient can slowly pull himself up in the gurney and with minimal assistance swing his legs to the side of the bed. Similarly, with minimal assistance he can stand and take one step. However, overall he just appears fatigued. Results & Data Laboratory Results Laboratory Results WBC 5.86 K/uL (4.8-10.8) 10/08/18 16:05 RBC 4.43 M/uL (4.7-6.1) L 10/08/18 16:05 Hgb 14.4 g/dL (14.0-18.0) 10/08/18 16:05 POC Hgb 14.3 g/dl (14.0-18.0) 10/08/18 16:23 Hct 41.1 % (42-52) L 10/08/18 16:05 POC Hct 42 % (42-52) 10/08/18 16:23 MCV 92.8 fL (80-100) 10/08/18 16:05 MCH 32.5 pg (25-34) 10/08/18 16:05 MCHC 35.0 g/dL (32-36) 10/08/18 16:05 RDW Std Deviation 45.0 fL (36.4-46.3) 10/08/18 16:05 RDW Coeff of Sola 13.2 % (11.5-14.5) 10/08/18 16:05 Plt Count 104 K/uL (130-400) L 10/08/18 16:05 MPV 10.5 fL (7.4-10.4) H 10/08/18 16:05 Immature Gran % (Auto) 0.2 % 10/08/18 16:05 Neut % (Auto) 69.8 % 10/08/18 16:05 Lymph % (Auto) 11.6 % 10/08/18 16:05 Whitman % (Auto) 17.1 % 10/08/18 16:05 Eos % (Auto) 1.0 % 10/08/18 16:05 Baso % (Auto) 0.3 % 10/08/18 16:05 Immature Gran # (Auto) 0.01 K/uL (0.00-0.02) 10/08/18 16:05 Neut # (Auto) 4.09 K/uL (1.4-6.5) 10/08/18 16:05 Lymph # (Auto) 0.68 K/uL (1.2-3.4) L 10/08/18 16:05 Whitman # (Auto) 1.00 K/uL (0.11-0.59) H 10/08/18 16:05 Eos # (Auto) 0.06 K/uL (0-0.5) 10/08/18 16:05 Baso # (Auto) 0.02 K/uL (0-0.2) 10/08/18 16:05 PT 10.9 Seconds (9.0-12.0) 10/08/18 16:05 INR 1.1 (0.9-1.1) 10/08/18 16:05 APTT 24.8 Seconds (21.0-31.0) 10/08/18 16:05 PTT Ratio 0.9 10/08/18 16:05 POC Sodium 141 mEq/L (135-144) 10/08/18 16:23 Sodium 137 mmol/L (136-145) 10/08/18 16:05 POC Potassium 3.3 mEq/L (3.3-5.0) 10/08/18 16:23 Potassium 3.3 mmol/L (3.5-5.1) L 10/08/18 16:05 POC Chloride 100 mEq/L (101-112) L 10/08/18 16:23 Chloride 102 mmol/L (98-107) 10/08/18 16:05 Carbon Dioxide 26 mmol/L (21-32) 10/08/18 16:05 POC Total CO2 25 mEq/l (24-31) 10/08/18 16:23 Anion Gap 9.0 (3-11) 10/08/18 16:05 POC Anion Gap 20.0 mmol/L (16-25) 10/08/18 16:23 POC BUN 17 mg/dl (7-18) 10/08/18 16:23 BUN 16 mg/dl (7-18) 10/08/18 16:05 Creatinine 1.28 mg/dl (0.6-1.4) 10/08/18 16:05 POC Creatinine 1.1 mg/dl (0.6-1.3) 10/08/18 16:23 Est Cr Clr Drug Dosing 59.6 ml/min 10/08/18 16:05 Est GFR ( Amer) 64.8 10/08/18 16:05 Est GFR (Non-Af Amer) 55.9 10/08/18 16:05 BUN/Creatinine Ratio 12.7 (10-20) 10/08/18 16:05 Glucose 114 mg/dl (70-99) H 10/08/18 16:05 POC Glucose 115 (70-99) H 10/08/18 16:20 POC Glucose (other) 121 mg/dl (70-99) H 10/08/18 16:23 Calcium 9.5 mg/dl (8.5-10.1) 10/08/18 16:05 POC Ioniz Calcium Asa 1.24 mmol/l (1.12-1.32) 10/08/18 16:23 Magnesium 1.9 mg/dl (1.8-2.4) 10/08/18 16:05 Total Bilirubin 0.5 mg/dl (0.2-1) 10/08/18 16:05 AST 23 U/L (15-37) 10/08/18 16:05 ALT 27 U/L (12-78) 10/08/18 16:05 Alkaline Phosphatase 62 U/L (45-117) 10/08/18 16:05 Total Creatine Kinase Cancelled 10/08/18 16:15 CK-MB (CK-2) 2.1 ng/ml (0.5-3.6) 10/08/18 16:05 CK/CKMB % Calc 1.8 (0-3.0) 10/08/18 16:05 Troponin I < 0.015 ng/ml (0-0.045) 10/08/18 16:05 Total Protein 8.3 gm/dl (6.4-8.2) H 10/08/18 16:05 Albumin 4.2 gm/dl (3.4-5.0) 10/08/18 16:05 Globulin 4.1 gm/dl (2.5-4.0) H 10/08/18 16:05 Albumin/Globulin Ratio 1.0 (0.9-2) 10/08/18 16:05 Urine Color Yellow 10/08/18 17:06 Urine Appearance Clear (Clear) 10/08/18 17:06 Urine pH 5.0 (4.5-7.5) 10/08/18 17:06 Ur Specific [place] 1.012 (1.000-1.030) 10/08/18 17:06 Urine Protein Negative (Negative) 10/08/18 17:06 Urine Glucose (UA) Negative (Negative) 10/08/18 17:06 Urine Ketones Negative (Negative) 10/08/18 17:06 Urine Blood Negative (Negative) 10/08/18 17:06 Urine Nitrite Negative (Negative) 10/08/18 17:06 Urine Bilirubin Negative (Negative) 10/08/18 17:06 Urine Urobilinogen Negative (Negative) 10/08/18 17:06 Ur Leukocyte Esterase Negative (Negative) 10/08/18 17:06 Influenza Type A (PCR) Neg for Influ A (Neg) 10/08/18 18:40 Influenza Type B (PCR) Pos for Influ B (Neg) A* 10/08/18 18:[address] head/brain wo con CT DOSE: 1409.92 mGy.cm HISTORY: Mental status change Stroke evaluation TECHNIQUE: Multiaxial CT images of the head were performed without the use of intravenous contrast. A dose lowering technique was utilized adhering to the principles of ALARA. Comparison: None. Findings: The paranasal sinuses and mastoid air cells are clear. The calvarium and skull base are intact. The ventricles and sulci are within normal limits. There is no mass, hematoma, midline shift, or acute infarct. Age-related atrophy and chronic small vessel change Impression: No acute intracranial abnormality. Age-related atrophy and chronic small vessel change HEAD & NECK CTA HISTORY: Pt c/o Rt sided weakness TECHNIQUE: Multiaxial CT images of the head were performed following the intravenous administration of contrast to evaluate the major cerebral vessels. Multiaxial CT images of the neck were also performed following the intravenous administration of contrast to evaluate the major cervical vessels. Maximum intensity projection images were also obtained. A dose lowering technique was utilized adhering to the principles of ALARA. COMPARISON: Head and neck MRA 12/15/2016. FINDINGS: There is no mass, hematoma, midline shift, or acute infarct. Visualized in tracranial internal carotid arteries, distal vertebral arteries, and basilar artery are widely patent. There is no significant stenosis, occlusion, or aneurysm seen within the bilateral ACAs, MCAs, or casting machine operator helper. 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 In addition, the left PICKING MACHINE OPERATOR HELPER originates from the left posterior indicating artery. These are considered to be normal variants. The aortic arch and proximal great vessels are widely patent. There is no occlusion or dissection identified within the bilateral common carotid, internal carotid, or vertebral arteries. Moderate left and mild right calcified plaque within the carotid bulbs. This results in mild focal stenosis within the takeoff of the left internal carotid artery of approximately 30%. No significant stenosis within the right internal carotid artery. Mild calcified plaque within the bilateral mid common carotid arteries without significant stenosis. Bilateral vertebral arteries are patent. IMPRESSION: 1. No significant stenosis, occlusion, or aneurysm within the ute of [place]. 2. No significant stenosis, occlusion, or dissection identified within the right internal carotid artery, common carotid arteries or vertebral arteries.. 3. Mild focal stenosis at the takeoff of the left internal carotid artery of approximately 30% due to the calcified plaque.. XR chest 1V portable CLINICAL HISTORY: Pt c/o Rt sided weakness COMPARISON STUDY: No previous studies for comparison. FINDINGS: The bones soft tissues and hemidiaphragms are normal. The cardiomediastinal silhouette is normal. The lungs are clear. The pulmonary vasculature is normal. IMPRESSION: Negative chest. Medications Administered Current Inpatient Medications Ioversol (Optiray 320 125ml) 116 ml IV ONCE PRN PRN Reason: Interaction Checking Stop: 10/12/18 17:18 Last Admin: 10/08/18 17:20 Dose: 116 ml Documented by: Code Status & VTE Plan Code Status Full code Supervising Physician Co-Signing Physician Notes Attending addendum: I have physically seen this patient, have supervised the medical residents activities, and agree with the H&P unless as otherwise noted. Assessment and Plan: Influenza B/generalized weakness, ambulatory dysfunction-- Start Tamiflu 30 mg p.o. twice daily renal dosing. NSS + KCl 20 mEq at 100 mils per hour. Acetaminophen 1 g IV every 8 hours as needed mild pain or temperature. Diabetes mellitus-- Hold glipizide and metformin. Placed on Accu-Cheks before meals and at bedtime with NovoLog coverage per scale. Hypertension-- Continue metoprolol tartrate 50 mg p.o. twice daily and lisinopril 20 mg p.o. twice daily with hold parameters. Hold HCTZ 25 mg p.o. daily. Remainder of orders and notations as noted. Resident Activity Tracking Resident Involvement: Resident Care Provided Care Provided: Adult [facility]
[2018-10-08] MEDS ORDERED: CARBOHYDRATES FOR HYPOGLYCEMIA PO PRN (21:25)
[2018-10-08] MEDS ORDERED: GLUCOSE 40% GEL 15 GM TUBE PO PRN (21:25)
[2018-10-08] MEDS ORDERED: GLUCAGON FOR INJ 1 MG VIAL SQ PRN (21:25)
[2018-10-08] MEDS ORDERED: GLUCOSE 10 TABS/TUBE PO PRN (21:25)
[2018-10-08] MEDS ORDERED: ACETAMINOPHEN 325 MG TAB PO PRN (21:25)
[2018-10-08] MEDS ORDERED: DEXTROSE 50% 50 ML SYRINGE IV PRN (21:25)
[2018-10-08] MEDS ORDERED: ONDANSETRON INJ 2 MG/ML 2 ML VIAL IV PRN (21:25)
[2018-10-08] MEDS ORDERED: SIMVASTATIN 40 MG TAB PO SCH (22:00)
--- NOTE | 2018-10-08 23:22 | Emergency Department Note ---
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 He is accompanied by his . The weakness is worse on his left side and the patient states he woke up experiencing these symptoms. His states he recently experienced UTI's and has been incontinent of urine. The patient notes he has also experienced increased urinary frequency. He denies any abdominal pain. Home Medications Home Medications Medication Instructions Recorded Confirmed Type aspirin [Aspir-81] 81 mg PO DAILY 10/08/18 10/08/18 History cyanocobalamin (vitamin B-12) 0 mcg PO DAILY 10/08/18 10/08/18 History [Vitamin B-12] glipizide [Glucotrol] 5 mg PO QPM 10/08/18 10/08/18 History glipizide [Glucotrol] 7.5 mg PO QAM 10/08/18 10/08/18 History hydrochlorothiazide 25 mg PO DAILY 10/08/18 10/08/18 History lisinopril [Zestril] 20 mg PO BID 10/08/18 10/08/18 History metformin [Glucophage] 1,000 mg PO BID 10/08/18 10/08/18 History metoprolol tartrate [Lopressor] 50 mg PO BID 10/08/18 10/08/18 History simvastatin [Zocor] 40 mg PO QPM 10/08/18 10/08/18 History Allergies Allergy/AdvReac Type Severity Reaction Status Date / Time pregabalin Allergy Unknown disorientat Verified 12/15/16 18:18 ion Past Med/Surg History Medical History History of UTI Social History Preferred Language: Korean Communication Ability: Effective Greige Goods Inspector Required: No Beliefs That Will Affect Care: None Current Living Situation: Spouse Other Information That Helps Us Care for You: No Feels Safe at Home: Yes Safety Concerns: Feels Safe At This Time Smoking Status: Smoker, status unknown Hx Alcohol Use: No Hx Substance Use: No Review of Systems See HPI for pertinent positives & negatives. and A total of 10 systems reviewed and were otherwise negative Physical Exam Vital Signs Vital Signs - 24 hr 10/08/18 16:02 10/08/18 16:17 10/08/18 16:26 Temperature 37.1 C Temperature Source Oral Sepsis Recent Fever Within 48 Hours No Sepsis New/Unexplained Change in Mental Status No Sepsis Action Taken by Nursing No Action Required Pulse Rate 90 85 Pulse Rate [Right Finger] Pulse Rate from SpO2 Sensor 86 Pulse Rhythm Regular Pulse Rhythm [Right Finger] Pulse Strength Normal Pulse Strength [Right Finger] Respiratory Rate 18 17 Respiratory Effort / Characteristics Non-Labored Respiratory Depth Normal Respiratory Pattern Blood Pressure 161/92 H 147/83 H Blood Pressure [Right Arm] Blood Pressure Mean 115 104 Blood Pressure Mean [Right Arm] Blood Pressure Position Sitting Blood Pressure Position [Right Arm] Pulse Oximetry 97 97 97 Oxygen Delivery Method Room Air Room Air 10/08/18 17:04 10/08/18 17:46 10/08/18 17:47 Temperature Temperature Source Sepsis Recent Fever Within 48 Hours Sepsis New/Unexplained Change in Mental Status Sepsis Action Taken by Nursing Pulse Rate 84 73 Pulse Rate [Right Finger] 72 Pulse Rate from SpO2 Sensor 84 72 Pulse Rhythm Pulse Rhythm [Right Finger] Regular Pulse Strength Pulse Strength [Right Finger] Normal Respiratory Rate 19 15 18 Respiratory Effort / Characteristics Non-Labored Respiratory Depth Normal Respiratory Pattern Regular Blood Pressure 143/76 H Blood Pressure [Right Arm] 143/76 H Blood Pressure Mean 98 Blood Pressure Mean [Right Arm] 98 Blood Pressure Position Blood Pressure Position [Right Arm] Lying Pulse Oximetry 97 97 98 Oxygen Delivery Method Room Air 10/08/18 18:00 10/08/18 18:01 10/08/18 19:00 Temperature Temperature Source Sepsis Recent Fever Within 48 Hours Sepsis New/Unexplained Change in Mental Status Sepsis Action Taken by Nursing Pulse Rate 88 83 71 Pulse Rate [Right Finger] Pulse Rate from SpO2 Sensor 71 Pulse Rhythm Pulse Rhythm [Right Finger] Pulse Strength Pulse Strength [Right Finger] Respiratory Rate 21 18 16 Respiratory Effort / Characteristics Respiratory Depth Respiratory Pattern Blood Pressure 137/102 H 145/69 H Blood Pressure [Right Arm] Blood Pressure Mean 113 94 Blood Pressure Mean [Right Arm] Blood Pressure Position Blood Pressure Position [Right Arm] Pulse Oximetry 96 Oxygen Delivery Method 10/08/18 20:22 10/08/18 21:01 10/08/18 21:25 Temperature 37.4 C Temperature Source Oral Sepsis Recent Fever Within 48 Hours Sepsis New/Unexplained Change in Mental Status Sepsis Action Taken by Nursing Pulse Rate 71 Pulse Rate [Right Finger] 75 72 Pulse Rate from SpO2 Sensor Pulse Rhythm Pulse Rhythm [Right Finger] Regular Pulse Strength Pulse Strength [Right Finger] Normal Respiratory Rate 20 18 20 Respiratory Effort / Characteristics Non-Labored Spontaneous Non-Labored Respiratory Depth Normal Normal Respiratory Pattern Regular Blood Pressure 137/73 Blood Pressure [Right Arm] 163/83 H 158/75 H Blood Pressure Mean Blood Pressure Mean [Right Arm] 109 102 Blood Pressure Position Blood Pressure Position [Right Arm] Pulse Oximetry 97 96 93 Oxygen Delivery Method Room Air Room Air Room Air GENERAL: Awake, alert, well-appearing, in no distress HENT: Normocephalic, atraumatic. Oropharynx unremarkable. EYES: Normal conjunctiva. Sclera non-icteric. NECK: Supple. No nuchal rigidity. FROM. No masses. RESPIRATORY: Clear to auscultation. No wheezes. No rales. Normal respiratory effort. CARDIAC: Normal rate. Normal rhythm. No murmurs. No rubs. Extremities warm and well perfused. Pulses equal. No JVD. GI: Soft, non-distended. No tenderness to palpation. No rebound or guarding. No masses. RECTAL: Deferred. MUSCULOSKELETAL: Atraumatic. Chest examination reveals no tenderness. The back is symmetrical on inspection without obvious abnormality. There is no CVA tenderness to palpation. No joint edema. LOWER EXTREMITIES: Calves are equal size bilaterally and non-tender. No edema. No discoloration. NEURO: Patient cannot answer any questions correctly. 4/5 strength in right leg. Course 1609: Past medical records reviewed. The patient was evaluated in room C2B, and a complete history and physical examination were performed. 1811: I discussed the patients case with Dr. Miranda, [facility]. The patient will be further evaluated. 1936: Nursing informed me the patient is positive for influenza B. Consultations Consultation #1: I discussed the patients case with Dr. Miranda, [facility] Hospitalist. The patient will be further evaluated. Time: 18:12 Administered Medications Discontinued Medications Sodium Chloride (Nss 1000ml) 1,000 mls @ 999 mls/hr IV .Q1H1M ONE Stop: 10/08/18 18:00 Last Infusion: 10/08/18 19:19 Dose: 0 mls/hr Documented by: [id number] Admin: 10/08/18 17:07 Dose: 999 mls/hr Documented by: [id number] Ioversol (Optiray 320 125ml) 116 ml IV ONCE PRN PRN Reason: Interaction Checking Stop: 10/12/18 17:18 Last Admin: 10/08/18 17:20 Dose: 116 ml Documented by: [id number] Ondansetron HCl (Zofran) 4 mg IV NOW STA Stop: 10/08/18 17:02 Last Admin: 10/08/18 17:07 Dose: 4 mg Documented by: [id number] Potassium Chloride (Klor-Con M20) 40 meq PO NOW STA Stop: 10/08/18 17:01 Last Admin: 10/08/18 17:07 Dose: 40 meq Documented by: [id number] Medical Decision Making Differential Diagnosis Differential Diagnosis includes but is not limited to dehydration, stroke, anemia, hypoglycemia, hyponatremia, hypernatremia, urinary tract infection, pneumonia, bronchitis, sepsis, gastroenteritis, additional abdominal pathology, metabolic abnormalities and infections. Medical Records Attestation: I reviewed the patient's medical records. Home Medications Current Medication List: was personally reviewed by me Laboratory Data Attestation: I reviewed the patient's lab results. Result diagrams: 10/08/18 16:05 10/08/18 16:05 Lab Results 10/08/18 10/08/18 10/08/18 Range/Units 16:05 16:05 16:05 WBC 5.86 (4.8-10.8) K/uL RBC 4.43 L (4.7-6.1) M/uL Hgb 14.4 (14.0-18.0) g/dL POC Hgb (14.0-18.0) g/dl Hct 41.1 L (42-52) % POC Hct (42-52) % MCV 92.8 (80-100) fL MCH 32.5 (25-34) pg MCHC 35.0 (32-36) g/dL RDW Std Deviation 45.0 (36.4-46.3) fL RDW Coeff of Sola 13.2 (11.5-14.5) % Plt Count 104 L (130-400) K/uL MPV 10.5 H (7.4-10.4) fL Immature Gran % (Auto) 0.2 % Neut % (Auto) 69.8 % Lymph % (Auto) 11.6 % [place] % (Auto) 17.1 % Eos % (Auto) 1.0 % Baso % (Auto) 0.3 % Immature Gran # (Auto) 0.01 (0.00-0.02) K/uL Neut # (Auto) 4.09 (1.4-6.5) K/uL Lymph # (Auto) 0.68 L (1.2-3.4) K/uL [place] # (Auto) 1.00 H (0.11-0.59) K/uL Eos # (Auto) 0.06 (0-0.5) K/uL Baso # (Auto) 0.02 (0-0.2) K/uL PT 10.9 (9.0-12.0) Seconds INR 1.1 (0.9-1.1) APTT 24.8 (21.0-31.0) Seconds PTT Ratio 0.9 POC Sodium (135-144) mEq/L Sodium 137 (136-145) mmol/L POC Potassium (3.3-5.0) mEq/L Potassium 3.3 L (3.5-5.1) mmol/L POC Chloride (101-112) mEq/L Chloride 102 (98-107) mmol/L Carbon Dioxide 26 (21-32) mmol/L POC Total CO2 (24-31) mEq/l Anion Gap 9.0 (3-11) POC Anion Gap (16-25) mmol/L POC BUN (7-18) mg/dl BUN 16 (7-18) mg/dl Creatinine 1.28 (0.6-1.4) mg/dl POC Creatinine (0.6-1.3) mg/dl Est Cr Clr Drug Dosing 59.6 ml/min Est GFR ( Amer) 64.8 Est GFR (Non-Af Amer) 55.9 BUN/Creatinine Ratio 12.7 (10-20) Glucose 114 H (70-99) mg/dl POC Glucose (70-99) POC Glucose (other) (70-99) mg/dl Calcium 9.5 (8.5-10.1) mg/dl POC Ioniz Calcium Asa (1.12-1.32) mmol/l Magnesium 1.9 (1.8-2.4) mg/dl Total Bilirubin 0.5 (0.2-1) mg/dl AST 23 (15-37) U/L ALT 27 (12-78) U/L Alkaline Phosphatase 62 (45-117) U/L Total Creatine Kinase 118 (39-308) U/L CK-MB (CK-2) 2.1 (0.5-3.6) ng/ml CK/CKMB % Calc 1.8 (0-3.0) Troponin I < 0.015 (0-0.045) ng/ml Total Protein 8.3 H (6.4-8.2) gm/dl Albumin 4.2 (3.4-5.0) gm/dl Globulin 4.1 H (2.5-4.0) gm/dl Albumin/Globulin Ratio 1.0 (0.9-2) Urine Color Urine Appearance (Clear) Urine pH (4.5-7.5) Ur Specific Distant (1.000-1.030) Urine Protein (Negative) Urine Glucose (UA) (Negative) Urine Ketones (Negative) Urine Blood (Negative) Urine Nitrite (Negative) Urine Bilirubin (Negative) Urine Urobilinogen (Negative) Ur Leukocyte Esterase (Negative) Influenza Type A (PCR) (Neg) Influenza Type B (PCR) (Neg) 10/08/18 10/08/18 10/08/18 Range/Units 16:15 16:20 16:23 WBC (4.8-10.8) K/uL RBC (4.7-6.1) M/uL Hgb (14.0-18.0) g/dL POC Hgb 14.3 (14.0-18.0) g/dl Hct (42-52) % POC Hct 42 (42-52) % MCV (80-100) fL MCH (25-34) pg MCHC (32-36) g/dL RDW Std Deviation (36.4-46.3) fL RDW Coeff of Sola (11.5-14.5) % Plt Count (130-400) K/uL MPV (7.4-10.4) fL Immature Gran % (Auto) % Neut % (Auto) % Lymph % (Auto) % [place] % (Auto) % Eos % (Auto) % Baso % (Auto) % Immature Gran # (Auto) (0.00-0.02) K/uL Neut # (Auto) (1.4-6.5) K/uL Lymph # (Auto) (1.2-3.4) K/uL [place] # (Auto) (0.11-0.59) K/uL Eos # (Auto) (0-0.5) K/uL Baso # (Auto) (0-0.2) K/uL PT (9.0-12.0) Seconds INR (0.9-1.1) APTT (21.0-31.0) Seconds PTT Ratio POC Sodium 141 (135-144) mEq/L Sodium (136-145) mmol/L POC Potassium 3.3 (3.3-5.0) mEq/L Potassium (3.5-5.1) mmol/L POC Chloride 100 L (101-112) mEq/L Chloride (98-107) mmol/L Carbon Dioxide (21-32) mmol/L POC Total CO2 25 (24-31) mEq/l Anion Gap (3-11) POC Anion Gap 20.0 (16-25) mmol/L POC BUN 17 (7-18) mg/dl BUN (7-18) mg/dl Creatinine (0.6-1.4) mg/dl POC Creatinine 1.1 (0.6-1.3) mg/dl Est Cr Clr Drug Dosing ml/min Est GFR ( Amer) Est GFR (Non-Af Amer) BUN/Creatinine Ratio (10-20) Glucose (70-99) mg/dl POC Glucose 115 H (70-99) POC Glucose (other) 121 H (70-99) mg/dl Calcium (8.5-10.1) mg/dl POC Ioniz Calcium Asa 1.24 (1.12-1.32) mmol/l Magnesium (1.8-2.4) mg/dl Total Bilirubin (0.2-1) mg/dl AST (15-37) U/L ALT (12-78) U/L Alkaline Phosphatase (45-117) U/L Total Creatine Kinase Cancelled (39-308) U/L CK-MB (CK-2) (0.5-3.6) ng/ml CK/CKMB % Calc (0-3.0) Troponin I (0-0.045) ng/ml Total Protein (6.4-8.2) gm/dl Albumin (3.4-5.0) gm/dl Globulin (2.5-4.0) gm/dl Albumin/Globulin Ratio (0.9-2) Urine Color Urine Appearance (Clear) Urine pH (4.5-7.5) Ur Specific Distant (1.000-1.030) Urine Protein (Negative) Urine Glucose (UA) (Negative) Urine Ketones (Negative) Urine Blood (Negative) Urine Nitrite (Negative) Urine Bilirubin (Negative) Urine Urobilinogen (Negative) Ur Leukocyte Esterase (Negative) Influenza Type A (PCR) (Neg) Influenza Type B (PCR) (Neg) 10/08/18 10/08/18 10/08/18 Range/Units 17:06 18:40 22:02 WBC (4.8-10.8) K/uL RBC (4.7-6.1) M/uL Hgb (14.0-18.0) g/dL POC Hgb (14.0-18.0) g/dl Hct (42-52) % POC Hct (42-52) % MCV (80-100) fL MCH (25-34) pg MCHC (32-36) g/dL RDW Std Deviation (36.4-46.3) fL RDW Coeff of Sola (11.5-14.5) % Plt Count (130-400) K/uL MPV (7.4-10.4) fL Immature Gran % (Auto) % Neut % (Auto) % Lymph % (Auto) % [place] % (Auto) % Eos % (Auto) % Baso % (Auto) % Immature Gran # (Auto) (0.00-0.02) K/uL Neut # (Auto) (1.4-6.5) K/uL Lymph # (Auto) (1.2-3.4) K/uL [place] # (Auto) (0.11-0.59) K/uL Eos # (Auto) (0-0.5) K/uL Baso # (Auto) (0-0.2) K/uL PT (9.0-12.0) Seconds INR (0.9-1.1) APTT (21.0-31.0) Seconds PTT Ratio POC Sodium (135-144) mEq/L Sodium (136-145) mmol/L POC Potassium (3.3-5.0) mEq/L Potassium (3.5-5.1) mmol/L POC Chloride (101-112) mEq/L Chloride (98-107) mmol/L Carbon Dioxide (21-32) mmol/L POC Total CO2 (24-31) mEq/l Anion Gap (3-11) POC Anion Gap (16-25) mmol/L POC BUN (7-18) mg/dl BUN (7-18) mg/dl Creatinine (0.6-1.4) mg/dl POC Creatinine (0.6-1.3) mg/dl Est Cr Clr Drug Dosing ml/min Est GFR ( Amer) Est GFR (Non-Af Amer) BUN/Creatinine Ratio (10-20) Glucose (70-99) mg/dl POC Glucose 126 H (70-99) POC Glucose (other) (70-99) mg/dl Calcium (8.5-10.1) mg/dl POC Ioniz Calcium Asa (1.12-1.32) mmol/l Magnesium (1.8-2.4) mg/dl Total Bilirubin (0.2-1) mg/dl AST (15-37) U/L ALT (12-78) U/L Alkaline Phosphatase (45-117) U/L Total Creatine Kinase (39-308) U/L CK-MB (CK-2) (0.5-3.6) ng/ml CK/CKMB % Calc (0-3.0) Troponin I (0-0.045) ng/ml Total Protein (6.4-8.2) gm/dl Albumin (3.4-5.0) gm/dl Globulin (2.5-4.0) gm/dl Albumin/Globulin Ratio (0.9-2) Urine Color Yellow Urine Appearance Clear (Clear) Urine pH 5.0 (4.5-7.5) Ur Specific Distant 1.012 (1.000-1.030) Urine Protein Negative (Negative) Urine Glucose (UA) Negative (Negative) Urine Ketones Negative (Negative) Urine Blood Negative (Negative) Urine Nitrite Negative (Negative) Urine Bilirubin Negative (Negative) Urine Urobilinogen Negative (Negative) Ur Leukocyte Esterase Negative (Negative) Influenza Type A (PCR) Neg for Influ A (Neg) Influenza Type B (PCR) Pos for Influ B A* (Neg) Imaging Data Radiologist's Impression: Radiology results as stated below per my review and the radiologist's interpretation: XR chest 1V portable CLINICAL HISTORY: Pt c/o Rt sided weakness COMPARISON STUDY: No previous studies for comparison. FINDINGS: The bones soft tissues and hemidiaphragms are normal. The cardiomediastinal silhouette is normal. The lungs are clear. The pulmonary vasculature is normal. IMPRESSION: Negative chest. The above report was generated using voice recognition software. It may contain grammatical, syntax or spelling errors. Electronically signed by: Juan Leonard M.D. 10/08/2018 4:[address] head/brain wo con CT DOSE: 1409.92 mGy.cm HISTORY: Mental status change Stroke evaluation TECHNIQUE: Multiaxial CT images of the head were performed without the use of intravenous contrast. A dose lowering technique was utilized adhering to the principles of ALARA. Comparison: None. Findings: The paranasal sinuses and mastoid air cells are clear. The calvarium and skull base are intact. The ventricles and sulci are within normal limits. There is no mass, hematoma, midline shift, or acute infarct. Age-related atrophy and chronic small vessel change Impression: No acute intracranial abnormality. Age-related atrophy and chronic small vessel change The above report was generated using voice recognition software. It may contain grammatical, syntax or spelling errors. Electronically signed by: Juan Leonard M.D. 10/08/2018 5:28 PM HEAD & NECK CTA HISTORY: Pt c/o Rt sided weakness TECHNIQUE: Multiaxial CT images of the head were performed following the intravenous administration of contrast to evaluate the major cerebral vessels. Multiaxial CT images of the neck were also performed following the intravenous administration of contrast to evaluate the major cervical vessels. Maximum intensity projection images were also obtained. A dose lowering technique was utilized adhering to the principles of ALARA. COMPARISON: Head and neck MRA 12/15/2016. FINDINGS: There is no mass, hematoma, midline shift, or acute infarct. Visualized intracr anial internal carotid arteries, distal vertebral arteries, and basilar artery are widely patent. There is no significant stenosis, occlusion, or aneurysm seen within the bilateral ACAs, MCAs, or tire center supervisor. 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 In addition, the left AUTO JOB ESTIMATOR originates from the left posterior indicating artery. These are considered to be normal variants. The aortic arch and proximal great vessels are widely patent. There is no occlusion or dissection identified within the bilateral common carotid, internal carotid, or vertebral arteries. Moderate left and mild right calcified plaque within the carotid bulbs. This results in mild focal stenosis within the takeoff of the left internal carotid artery of approximately 30%. No significant stenosis within the right internal carotid artery. Mild calcified plaque within the bilateral mid common carotid arteries without significant stenosis. B ilateral vertebral arteries are patent. IMPRESSION: 1. No significant stenosis, occlusion, or aneurysm within the [place]. 2. No significant stenosis, occlusion, or dissection identified within the right internal carotid artery, common carotid arteries or vertebral arteries.. 3. Mild focal stenosis at the takeoff of the left internal carotid artery of approximately 30% due to the calcified plaque.. Electronically signed by: Dariusz Armijo M.D. 10/08/2018 5:39 PM ECG Data Attestation: I personally reviewed and interpreted this ECG as follows: Indication: weakness Rate (beats per minute): 86 Rhythm: normal sinus Findings: no ST depression and no ST elevation Comparison ECG Date: from (12/15/2016) Change: no significant change Blood Pressure Blood Pressure Findings: Elevated blood pressure Blood Pressure Disposition: further management by hospitalist [facility] Narrative This is a 72-year-old male who presents the emergency department complaining of right leg weakness and inability to ambulate. He has a normal CBC normal renal profile. Due to the patient's right leg weakness he was sent for CT of the head as well as CTA of the head and neck. This does not show any acute abnormality. He is positive for the flu. He does not have an elevation of his white blood cell count. I did discuss the case with the hospitalist service who agreed to admit the patient. Patient and family were in agreement with the treatment plan. 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 I confirm that the note above accurately reflects all work, treatment, procedures, and medical decision making performed by me.
[2018-10-08] MEDS: LISINOPRIL 20 MG TAB PO SCH (23:34)
[2018-10-08] MEDS: OSELTAMIVIR PHOSPHATE 75 MG CAP PO SCH (23:35)
[2018-10-08] MEDS: METOPROLOL TARTRATE 50 MG TAB PO SCH (23:35)
[2018-10-08] MEDS: INSULIN ASPART 100 UNITS/ML 3 ML PEN SC SCH (23:42)
[2018-10-09] MEDS ORDERED: COUGH DROP (SUGAR FREE) LOZ 24 LOZ/1 BOX BUCCAL PRN (03:40)
[2018-10-09 06:25] LABS: Hemoglobin 13.3 g/dL (14.0-18.0); Mean Corpuscular Hgb Conc 33.3 g/dL (32-36); Mean Corpuscular Volume 93.5 fL (80-100); RDW Coefficient of Variation 13.5 % (11.5-14.5); RDW Standard Deviation 46.2 fL (36.4-46.3); Red Blood Count 4.28 M/uL (4.7-6.1); White Blood Count 4.02 K/uL (4.8-10.8)
[2018-10-09 06:56] LABS: Mean Platelet Volume 10.3 fL (7.4-10.4); Platelet Count 87 K/uL (130-400)
[2018-10-09 06:57] LABS: BUN Creatinine Ratio 12.7 (10-20); Calcium 9.5 mg/dl (8.5-10.1); Creatinine Clr Calc Pharmacy 59.9 ml/min; Est GFR (African American) 64.8; Est GFR (Non-African American) 55.9; Potassium 3.7 mmol/L (3.5-5.1)
[2018-10-09 06:59] LABS: Acanthocytes 1+; Basophils # (auto) 0.01 K/uL (0-0.2); Basophils % (auto) 0.2 %; Eosinophils # (auto) 0.03 K/uL (0-0.5); Eosinophils % (auto) 0.7 %; Lymphocytes # (auto) 1.01 K/uL (1.2-3.4); Lymphocytes % (auto) 25.1 %; Monocytes # (auto) 0.71 K/uL (0.11-0.59); Monocytes % (auto) 17.7 %; Neutrophils # (auto) 2.26 K/uL (1.4-6.5); Neutrophils % (auto) 56.3 %
[2018-10-09] MEDS: METOPROLOL TARTRATE 50 MG TAB PO SCH (08:57)
[2018-10-09] MEDS: LISINOPRIL 20 MG TAB PO SCH (08:57)
[2018-10-09] MEDS: OSELTAMIVIR PHOSPHATE 75 MG CAP PO SCH (08:57)
[2018-10-09] MEDS: INSULIN ASPART 100 UNITS/ML 3 ML PEN SC SCH ×3 (08:58→17:45)
[2018-10-09] MEDS ORDERED: ENOXAPARIN INJ 30 MG/0.3 ML SYR SQ SCH (09:00)
[2018-10-09] MEDS ORDERED: ASPIRIN 81 MG ECTAB PO SCH (09:00)
[2018-10-09] MEDS ORDERED: hydroCHLOROthiazide 25 MG TAB PO SCH (09:00)
--- NOTE | 2018-10-09 14:51 | Family Medicine Progress Note ---
Date of Service October 09, 2018 Assessment & Plan (1) Weakness: 72-year-old male was admitted on 08 October 2018 for weakness, gait difficulties, and influenza B positive. Weakness, gait difficulty: Gait difficulties apparently on and off since summer 2016. Reportedly previous neurology workup was negative to include not having Parkinson's. Question of early dementia reported. Here is not focally weak in any particular extremity nor does he have clear stroke symptoms. CT head nonacute. CTA head and neck with mild stenosis of the left ICA otherwise unremarkable. No clear infectious symptoms. Portable chest x-ray is clear. Troponin negative and EKG is NSR 86, RBBB, LAFB. He is influenza B positive, likely causing some generalized fatigue/weakness. - No need for neuro consult as suggested by overnight team - patient and are eager to return home. There is most likely underlying dementia that was exacerbated by illness. Also, unfamiliar hospital setting is also a potential contributor. Code status: Full code. Diet: DM 2, heart healthy. DVT prophy: Lovenox daily. PT/OT: Ordered. Disbo: Admit to [facility]. (2) Ambulatory dysfunction: as above (3) Confusion: Reportedly question of some baseline dementia. On admit, was A&O x 3. This morning only alert and oriented to person. He does not provide specific answering but states he knows answer. When prompted does not provide correct answer or starts discussing stories unrelated. Unable to assess with a Mocha because of acute illness, hospital setting that is unfamiliar. Recommend outpatient follow up with PCP. (4) Influenza B: Influenza B positive: As noted on admit. Likely from granddaughter with similar symptoms. Afebrile, WBC 5. - We will start on Tamiflu at 30 mg BID dose (for slight low CrCl). - Droplet isolation precautions. (5) Urinary frequency: Urinary frequency: As well as incontinence and reported frequent UTIs. UA was clear. - May benefit from an outpatient workup. - will perform post-void bladder scan for residuals, could be from potential BPH - also consider psychogenic polydipsia causing polyuria (6) Thrombocytopenia: Thrombocytopenia: Admit platelets 104. Similar to July 2017. Unclear source, appears chronic. 87 today 10/09/18 (7) Hypokalemia: Hypokalemia: Admit K 3.3. Replaced, monitoring. Today 10/09 3.7 WNL (8) Hypertension: Continue home hydrochlorothiazide, lisinopril, and Lopressor. Is also on aspirin. (9) Hyperlipemia: Continue home Zocor. (10) Diabetes mellitus: - Diabetes type 2: At home is on metformin and glipizide. On admit, ordered sliding scale. Supervising Physician Co-Signing Physician Notes I saw and examined the patient independently. I discussed the plan of care with the resident with the following summary/exceptions: 72yo M w/ hx of DM, HTN who presents with weakness and confusion, and found to have the flu. Today, he is somewhat confused and a little upset about wanting to go home. He reports no weakness. Reports no fevers/chills, chest pain, shortness of breath, abdominal pain, nausea, or vomiting. 1) Flu - Being treated with Tamiflu. Will check dosing for his current renal function. 2) Weakness - Likely flu related and also due to age and deconditioning. Improving with resolution of the flu. 3) Confusion - Likely baseline dementia exacerbated with flu. Will need outpatient neuropsychiatry testing. Subjective Caveat: History Limited by - Confusion. Spouse is present able to provide history. Patient only acute complaints of weakness, which is what prompted spouse to bring patient to ED. He denies any shortness of breath, pain, nausea, vomiting, diarrhea. Spouse states patient has had nightly events of confusion for quite awhile but have not discussed this with primary care provider. They note that they recently saw there PCP within the past couple months but did not bring up patient acting confused. Spouse does not report any events of patient wondering off or driving and getting lost. She reports that patient and her did get annual influenza vaccinations. Physical Exam Vital Signs (Past 24 Hours): Last Vital Signs Temp 36.6 C 10/09/18 07:14 Pulse 67 10/09/18 07:14 Resp 16 10/09/18 07:14 BP 155/79 H 10/09/18 07:14 Pulse Ox 98 10/09/18 07:14 Constitutional: WD/WN, vitals as above cooperative and comfortable; no acute distress Eyes: + anicteric sclerae and EOM intact bilaterally Neck: normal visual inspection and trachea midline Respiratory: normal respiratory effort, lungs clear to auscultation Cardiovascular: Rate/Rhythm: regular rate and regular rhythm Extremities: no pedal edema Gastrointestinal (Abdomen): Inspection/Auscultation: normal bowel sounds Percussion/Palpation: abdomen soft; abdomen nontender Musculoskeletal: no cyanosis or clubbing, extremities motor strength 5/5 Skin: no rashes, warm and dry Neurologic: moves all extremities and awake Psychiatric: Orientation: alert and oriented to person; + not oriented to place (states he knows where he is but when asked speficially states 87) and + not oriented to time (year ) Apperance: appropriately dressed and sagar ropriately groomed Eye Contact: good eye contact Results & Data Laboratory Results Laboratory Results - last 24 hr 10/08/18 10/08/18 10/08/18 16:05 16:05 16:05 WBC 5.86 RBC 4.43 L Hgb 14.4 POC Hgb Hct 41.1 L POC Hct MCV 92.8 MCH 32.5 MCHC 35.0 RDW Std Deviation 45.0 RDW Coeff of Sola 13.2 Plt Count 104 L MPV 10.5 H Immature Gran % (Auto) 0.2 Neut % (Auto) 69.8 Lymph % (Auto) 11.6 [place] % (Auto) 17.1 Eos % (Auto) 1.0 Baso % (Auto) 0.3 Immature Gran # (Auto) 0.01 Neut # (Auto) 4.09 Lymph # (Auto) 0.68 L [place] # (Auto) 1.00 H Eos # (Auto) 0.06 Baso # (Auto) 0.02 Acanthocytes (Spur) PT 10.9 INR 1.1 APTT 24.8 PTT Ratio 0.9 POC Sodium Sodium 137 POC Potassium Potassium 3.3 L POC Chloride Chloride 102 Carbon Dioxide 26 POC Total CO2 Anion Gap 9.0 POC Anion Gap POC BUN BUN 16 Creatinine 1.28 POC Creatinine Est Cr Clr Drug Dosing 59.6 Est GFR ( Amer) 64.8 Est GFR (Non-Af Amer) 55.9 BUN/Creatinine Ratio 12.7 Glucose 114 H POC Glucose POC Glucose (other) Calcium 9.5 POC Ioniz Calcium Asa Magnesium 1.9 Total Bilirubin 0.5 AST 23 ALT 27 Alkaline Phosphatase 62 Total Creatine Kinase 118 CK-MB (CK-2) 2.1 CK/CKMB % Calc 1.8 Troponin I < 0.015 Total Protein 8.3 H Albumin 4.2 Globulin 4.1 H Albumin/Globulin Ratio 1.0 Urine Color Urine Appearance Urine pH Ur Specific [place] Urine Protein Urine Glucose (UA) Urine Ketones Urine Blood Urine Nitrite Urine Bilirubin Urine Urobilinogen Ur Leukocyte Esterase Influenza Type A (PCR) Influenza Type B (PCR) 10/08/18 10/08/18 10/08/18 16:15 16:20 16:23 WBC RBC Hgb POC Hgb 14.3 Hct POC Hct 42 MCV MCH MCHC RDW Std Deviation RDW Coeff of Sola Plt Count MPV Immature Gran % (Auto) Neut % (Auto) Lymph % (Auto) [place] % (Auto) Eos % (Auto) Baso % (Auto) Immature Gran # (Auto) Neut # (Auto) Lymph # (Auto) [place] # (Auto) Eos # (Auto) Baso # (Auto) Acanthocytes (Spur) PT INR APTT PTT Ratio POC Sodium 141 Sodium POC Potassium 3.3 Potassium POC Chloride 100 L Chloride Carbon Dioxide POC Total CO2 25 Anion Gap POC Anion Gap 20.0 POC BUN 17 BUN Creatinine POC Creatinine 1.1 Est Cr Clr Drug Dosing Est GFR ( Amer) Est GFR (Non-Af Amer) BUN/Creatinine Ratio Glucose POC Glucose 115 H POC Glucose (other) 121 H Calcium POC Ioniz Calcium [place] 1.24 Magnesium Total Bilirubin AST ALT Alkaline Phosphatase Total Creatine Kinase Cancelled CK-MB (CK-2) CK/CKMB % Calc Troponin I Total Protein Albumin Globulin Albumin/Globulin Ratio Urine Color Urine Appearance Urine pH Ur Specific [place] Urine Protein Urine Glucose (UA) Urine Ketones Urine Blood Urine Nitrite Urine Bilirubin Urine Urobilinogen Ur Leukocyte Esterase Influenza Type A (PCR) Influenza Type B (PCR) 10/08/18 10/08/18 10/08/18 17:06 18:40 22:02 WBC RBC Hgb POC Hgb Hct POC Hct MCV MCH MCHC RDW Std Deviation RDW Coeff of Sola Plt Count MPV Immature Gran % (Auto) Neut % (Auto) Lymph % (Auto) [place] % (Auto) Eos % (Auto) Baso % (Auto) Immature Gran # (Auto) Neut # (Auto) Lymph # (Auto) [place] # (Auto) Eos # (Auto) Baso # (Auto) Acanthocytes (Spur) PT INR APTT PTT Ratio POC Sodium Sodium POC Potassium Potassium POC Chloride Chloride Carbon Dioxide POC Total CO2 Anion Gap POC Anion Gap POC BUN BUN Creatinine POC Creatinine Est Cr Clr Drug Dosing Est GFR ( Amer) Est GFR (Non-Af Amer) BUN/Creatinine Ratio Glucose POC Glucose 126 H POC Glucose (other) Calcium POC Ioniz Calcium [place] Magnesium Total Bilirubin AST ALT Alkaline Phosphatase Total Creatine Kinase CK-MB (CK-2) CK/CKMB % Calc Troponin I Total Protein Albumin Globulin Albumin/Globulin Ratio Urine Color Yellow Urine Appearance Clear Urine pH 5.0 Ur Specific [place] 1.012 Urine Protein Negative Urine Glucose (UA) Negative Urine Ketones Negative Urine Blood Negative Urine Nitrite Negative Urine Bilirubin Negative Urine Urobilinogen Negative Ur Leukocyte Esterase Negative Influenza Type A (PCR) Neg for Influ A Influenza Type B (PCR) Pos for Influ B A* 10/08/18 10/09/18 10/09/18 23:40 05:53 05:53 WBC 4.02 L RBC 4.28 L Hgb 13.3 L POC Hgb Hct 40.0 L POC Hct MCV 93.5 MCH 31.1 MCHC 33.3 RDW Std Deviation 46.2 RDW Coeff of [place] 13.5 Plt Count 87 L MPV 10.3 Immature Gran % (Auto) 0.0 Neut % (Auto) 56.3 Lymph % (Auto) 25.1 [place] % (Auto) 17.7 Eos % (Auto) 0.7 Baso % (Auto) 0.2 Immature Gran # (Auto) 0.00 Neut # (Auto) 2.26 Lymph # (Auto) 1.01 L [place] # (Auto) 0.71 H Eos # (Auto) 0.03 Baso # (Auto) 0.01 Acanthocytes (Spur) 1+ PT INR APTT PTT Ratio POC Sodium Sodium 139 POC Potassium Potassium 3.7 POC Chloride Chloride 104 Carbon Dioxide 28 POC Total CO2 Anion Gap 7.0 POC Anion Gap POC BUN BUN 16 Creatinine 1.28 POC Creatinine Est Cr Clr Drug Dosing 59.9 Est GFR ( Amer) 64.8 Est GFR (Non-Af Amer) 55.9 BUN/Creatinine Ratio 12.7 Glucose 149 H POC Glucose 140 H POC Glucose (other) Calcium 9.5 POC Ioniz Calcium [place] Magnesium Total Bilirubin AST ALT Alkaline Phosphatase Total Creatine Kinase CK-MB (CK-2) CK/CKMB % Calc Troponin I Total Protein Albumin Globulin Albumin/Globulin Ratio Urine Color Urine Appearance Urine pH Ur Specific [place] Urine Protein Urine Glucose (UA) Urine Ketones Urine Blood Urine Nitrite Urine Bilirubin Urine Urobilinogen Ur Leukocyte Esterase Influenza Type A (PCR) Influenza Type B (PCR) 10/09/18 10/09/18 07:29 11:25 WBC RBC Hgb POC Hgb Hct POC Hct MCV MCH MCHC RDW Std Deviation RDW Coeff of S[place] Plt Count MPV Immature Gran % (Auto) Neut % (Auto) Lymph % (Auto) [place] % (Auto) Eos % (Auto) Baso % (Auto) Immature Gran # (Auto) Neut # (Auto) Lymph # (Auto) [place] # (Auto) Eos # (Auto) Baso # (Auto) Acanthocytes (Spur) PT INR APTT PTT Ratio POC Sodium Sodium POC Potassium Potassium POC Chloride Chloride Carbon Dioxide POC Total CO2 Anion Gap POC Anion Gap POC BUN BUN Creatinine POC Creatinine Est Cr Clr Drug Dosing Est GFR ( Amer) Est GFR (Non-Af Amer) BUN/Creatinine Ratio Glucose POC Glucose 124 H 180 H POC Glucose (other) Calcium POC Ioniz Calcium [place] Magnesium Total Bilirubin AST ALT Alkaline Phosphatase Total Creatine Kinase CK-MB (CK-2) CK/CKMB % Calc Troponin I Total Protein Albumin Globulin Albumin/Globulin Ratio Urine Color Urine Appearance Urine pH Ur Specific [place] Urine Protein Urine Glucose (UA) Urine Ketones Urine Blood Urine Nitrite Urine Bilirubin Urine Urobilinogen Ur Leukocyte Esterase Influenza Type A (PCR) Influenza Type B (PCR) Medications Administered Aspirin (Ecotrin Ectab) 81 mg PO DAILY [facility] Stop: 11/08/18 08:59 Last Admin: 10/09/18 08:57 Dose: 81 mg Documented by: [id number] Enoxaparin Sodium (Lovenox) 30 mg SQ DAILY [facility] Stop: 11/08/18 08:59 Last Admin: 10/09/18 08:57 Dose: 30 mg Documented by: [id number] Hydrochlorothiazide (Hctz) 25 mg PO DAILY [facility] Stop: 11/08/18 08:59 Last Admin: 10/09/18 08:57 Dose: 25 mg Documented by: [id number] Insulin Aspart (Novolog Flexpen) 0 units SC ACHS [facility] Stop: 11/07/18 21:59 Last Admin: 10/09/18 12:59 Dose: 4 units Documented by: [id number] Cosigned by: [id number] Admin: 10/09/18 08:58 Dose: 2 units Documented by: [id number] Cosigned by: [id number] Admin: 10/08/18 23:42 Dose: Not Given Documented by: [id number] Cosigned by: [id number] Lisinopril (Zestril) 20 mg PO BID [facility] Stop: 11/07/18 21:59 Last Admin: 10/09/18 08:57 Dose: 20 mg Documented by: [id number] Admin: 10/08/18 23:34 Dose: 20 mg Documented by: [id number] Metoprolol Tartrate (Lopressor) 50 mg PO BID [facility] Stop: 11/07/18 21:59 Last Admin: 10/09/18 08:57 Dose: 50 mg Documented by: [id number] Admin: 10/08/18 23:35 Dose: 50 mg Documented by: [id number] Oseltamivir Phosphate (Tamiflu) 75 mg PO BID [facility]; Protocol Stop: 10/13/18 21:59 Last Admin: 10/09/18 08:57 Dose: 75 mg Documented by: [id number] Admin: 10/08/18 23:35 Dose: 75 mg Documented by: [id number] Simvastatin (Zocor) 40 mg PO QPM [facility] Stop: 11/07/18 21:59 Last Admin: 10/08/18 23:34 Dose: 40 mg Documented by: [id number]
--- NOTE | 2018-10-09 17:14 | Discharge Summary ---
Date of Service October 09, 2018 Admission HPI Per Admitting Provider 72-year-old male presents with his with concerns for increased weakness throughout today. gives the great majority of the history. She says that starting around October 05 he did not seem to have as much strength. This worsened on day of admission, mostly consistent with not having as much strength to walk. She wonders if it is related to her granddaughter being recently diagnosed with influenza as well as strep throat. Patient himself says that he feels increased fatigue, mostly in his legs. He also complains of a right frontal headache and that the front of his head feels "hot". He denies any known fevers, nausea or vomiting, blurry vision, chest pain, shortness of breath, cough, or other cold-like symptoms. Otherwise, the patient does not have any other acute concerns. His does mention that he has had difficulties with his gait in the past. Apparently he underwent an evaluation with a "walking specialist" in the summer 2016. He was seen by various neurologists, told that it was not Parkinson's, but otherwise diagnosis was not apparently made. does wonder if he has some early dementia. She also says sometimes he becomes more disoriented in the evenings. On previous occasions this is occurred with UTIs. When asked, the patient says that he has some ongoing increased urinary frequency and a sense of urgency to get to the bathroom. However, he denies any dysuria, hematuria, or outright incontinence. PMH includes hypertension, hyperlipidemia, diabetes type 2, ? gait issues. At baseline he lives at home with his . His PCP is Dr. Mcfarlane. Admission Exam Per Admitting Provider Physical Exam: GENERAL: Awake, alert, well-appearing, easily conversational, in no acute distress HENT: Normocephalic, atraumatic. Oropharynx unremarkable. EYES: Normal conjunctiva. Sclera non-icteric. NECK: Inspection normal. Non-tender. Supple and full ROM. No nuchal rigidity. CARDIAC: +S1S2 RRR, no murmurs. RESPIRATORY: Clear to auscultation. No wheezes or rales. Normal respiratory effort. GI: +BS, soft, non-distended. No tenderness to palpation. No rebound or guarding. EXTREMITIES: No pedal edema or calf tenderness. Moving all extremities easily, spontaneously but slowly. Strength 5 out of 5 in all extremities. Distal sensation equal and intact. NEURO: No gross neuro deficits. Patient can slowly pull himself up in the gurney and with minimal assistance swing his legs to the side of the bed. Similarly, with minimal assistance he can stand and take one step. However, overall he just appears fatigued. Principal Diagnosis Confusion; Influenza B Discharge Exam Constitutional WD/WN, vitals as above cooperative and comfortable; no acute distress Eyes + anicteric sclerae and EOM intact bilaterally Neck normal visual inspection and trachea midline Respiratory normal respiratory effort, lungs clear to auscultation Cardiovascular Rate/Rhythm: regular rate and regular rhythm Extremities: no pedal edema Gastrointestinal (Abdomen) Inspection/Auscultation: normal bowel sounds Percussion/Palpation: abdomen soft; abdomen nontender Musculoskeletal no cyanosis or clubbing, extremities motor strength 5/5 Skin no rashes, warm and dry Neurologic moves all extremities and awake Psychiatric Orientation: alert and oriented to person; + not oriented to place (states he knows where he is but when asked speficially states 87) and + not oriented to time (year ) Apperance: appropriately dressed and appropriately groomed Eye Contact: good eye contact Discharge Data Allergies Allergy/AdvReac Type Severity Reaction Status Date / Time pregabalin Allergy Unknown disorientat Verified 12/15/16 18:18 ion Consultations 10/08/18 17:52 ED Decision to Admit Stat Ordered Studies 10/08/18 16:15 CT angio head w con Stat 1. No significant stenosis, occlusion, or aneurysm within the [place]. 2. No significant stenosis, occlusion, or dissection identified within the right internal carotid artery, common carotid arteries or vertebral arteries.. 3. Mild focal stenosis at the takeoff of the left internal carotid artery of approximately 30% due to the calcified plaque.. CT angio neck with con Stat CT head/brain wo con Stat - No acute intracranial abnormality. Age-related atrophy and chronic small vessel change CXR - negative Hospital Course (1) Weakness: 72-year-old male was admitted on 08 October 2018 for weakness, gait difficulties, and influenza B positive. Weakness, gait difficulty: Gait difficulties apparently on and off since summer 2016. Reportedly previous neurology workup was negative to include not having Parkinson's. Question of early dementia reported. Here is not focally weak in any particular extremity nor does he have clear stroke symptoms. CT head nonacute. CTA head and neck with mild stenosis of the left ICA otherwise unremarkable. No clear infectious symptoms. Portable chest x-ray is clear. Troponin negative and EKG is NSR 86, RBBB, LAFB. He is influenza B positive, likely causing some generalized fatigue/weakness. Completed one day here, but got 75mg BID, will write four more days worth of 30mg BID. - No need for neuro consult as suggested by overnight team, no acute process on imaging. - patient and are eager to return home. There is most likely underlying dementia that was exacerbated by illness. Also, unfamiliar hospital setting is also a potential contributor. Code status: Full code. Diet: DM 2, heart healthy. DVT prophy: Lovenox daily. PT/OT: Ordered. Disbo: Admit to [facility]. (2) Ambulatory dysfunction: as above (3) Confusion: Reportedly question of some baseline dementia. On admit, was A&O x 3. This morning only alert and oriented to person. He does not provide specific answering but states he knows answer. When prompted does not provide correct answer or starts discussing stories unrelated. Unable to assess with a [place] because of acute illness, hospital setting that is unfamiliar. Recommend outpatient follow up with PCP. - discharged home as patient may not do well in a hospital setting overnight in unfamiliar environment with concurrent acute illness and underlying suspected dementia. - no infectious process on workup including urine, negative CXR. (4) Influenza B: Influenza B positive: As noted on admit. Likely from granddaughter with similar symptoms. Afebrile, WBC 5. - Admit noted to start on Tamiflu at 30 mg BID dose (for slight low CrCl). - Droplet isolation precautions. - Review on discharge shows patient received 75mg x2 doses. Will write for 4 more days at 30mg BID. (5) Urinary frequency: Urinary frequency: As well as incontinence and reported frequent UTIs. UA was clear. - May benefit from an outpatient workup. - performed post-void bladder scan for residuals was negative for retention as thought maybe BPH process - also consider psychogenic polydipsia causing polyuria - might benefit from bladder training if over active bladder (6) Thrombocytopenia: Thrombocytopenia: Admit platelets 104. Similar to July 2017. Unclear source, appears chronic. 87 today 10/09/18 (7) Hypokalemia: Hypokalemia: Admit K 3.3. Replaced, monitoring. Today 10/09 3.7 WNL (8) Hypertension: Continue home hydrochlorothiazide, lisinopril, and Lopressor. Is also on aspirin. (9) Hyperlipemia: Continue home Zocor. (10) Diabetes mellitus: - Diabetes type 2: At home is on metformin and glipizide. On admit, ordered sliding scale. Total Time Total Time Spent Total Time Spent (In Minutes): 35 Total Time Includes: Examination of the Patient, Discharge Planning, Medication Reconciliation and Communication With Other Providers Discharge Plan Discharge Items Patient Disposition: Home - Self-Care Reason For Visit: WEAKNESS, INFLUENZA B Discharge Diagnosis: Confusion; influenza B Discharge Goals: Therapeutic intervention Activity: Per 'Additional Instructions' section Non-emergency contact: Primary Care Provider Call non-emergency contact if: you have any medication questions, your symptoms worsen and you have a fever Follow-up/Referrals: Олег Mcfarlane III, MD [Primary Care Provider] - (please call for next available appointment) Diet: Carb Consistent or DM2 Addtl Provider Instructions: You tested positive for influenza B. This is a viral infection. You had one day of difference and will need 4 more days for a total treatment of 5 days. This prescription was sent to [facility] electronically for your convenience. This medication may shorten the length of illness by one day. Please make sure to drink plenty of clear fluids. Please use proper hand hygiene with hand washing to prevent spread of illness. If you experience worsening shortness of breath, please return to Emergency Department. Thank you for getting the influenza vaccination. Although, you still contracted influenza. This vaccine will still protect you against other strains of flu. It also lessened the severity of illness. Next season, please encourage family members to get vaccinated to prevent them from spreading virus to you. The confusion is most likely related to illness, but there is suspicion of an underlying cognitive impairment such as mild dementia. Please discuss symptoms of confusion that were present prior to illness to your Primary Care Doctor. Also, the hospital setting is an unfamiliar environment and can promote delirium which adds to confusion. Re-orienting Ketan to his familiar home environment, making sure there are clocks and dates accessible to read will also help. If confused, please make sure Ketan does not drive and ensure safe home environment. Also, be sure to check blood sugars to make sure that symptoms are not related to a hypoglycemic (low blood sugar) event. For Ketan's complaint of Urinary Frequency, there were no signs of a Urinary Tract Infection or incomplete emptying of bladder. Please follow up with your primary care doctor if further investigation is needed. Prescriptions: New oseltamivir 30 mg capsule 30 mg PO BID 4 Days Qty: 8 RF: 0 Continued lisinopril [Zestril] 20 mg tablet 20 mg PO BID RF: 0 cyanocobalamin (vitamin B-12) [Vitamin B-12] 1,000 mcg Tablet PO DAILY RF: 0 aspirin [Aspir-81] 81 mg Tablet,Delayed Release (Dr/Ec) 81 mg PO DAILY RF: 0 simvastatin [Zocor] 40 mg tablet 40 mg PO QPM RF: 0 metformin [Glucophage] 1,000 mg tablet 1,000 mg PO BID RF: 0 metoprolol tartrate [Lopressor] 50 mg tablet 50 mg PO BID RF: 0 hydrochlorothiazide 25 mg tablet 25 mg PO DAILY RF: 0 glipizide [Glucotrol] 5 mg tablet 5 mg PO QPM RF: 0 glipizide [Glucotrol] 5 mg tablet 7.5 mg PO QAM RF: 0 Stand-Alone Forms: My [facility] Discharge Orders: Discharge Order (Routine); Ordered 10/09/18 Ordered By: Jm Hendricks Admission Data Admit Date/Time: 10/08/18 20:28 Attending Provider: Yuriy Rojas Admit Provider: Brant Escobedo Primary Care Provider: Олег Mcfarlane III Other Providers: Yuriy Rojas Service: Medical Supervising Physician Co-Signing Physician Notes I saw and examined the patient independently. I discussed the plan of care with the resident with the following summary/exceptions: 72yo M w/ hx of DM, HTN who presents with weakness and confusion, and found to have the flu. Today, he was somewhat confused and a little upset about wanting to go home. He reports no weakness. Reports no fevers/chills, chest pain, shortness of breath, abdominal pain, nausea, or vomiting. 1) Flu - Being treated with Tamiflu. Possibly only minimally helpful as he is ~the 48-72 time window of symptom onset. However, he improved considerably after first 12-24h of administration, so will continue a 5-day course. 2) Weakness - Likely flu related and also due to age and deconditioning. Improving with resolution of the flu. 3) Confusion - Likely baseline dementia exacerbated with flu. Will need outpatient neuropsychiatry testing.
== END 2018-10-09 18:42 | disposition home or self-care (01) | DRG 866 ==
LOC: ED 15:56 → 2N 20:28 → SUATTDRO 20:28 → 2N 21:01

== ENCOUNTER 2020-03-01 12:11 | Observation (INO) ==
[2020-03-01] MEDS ORDERED: LIDOCAINE/EPINEPH/TETRACAINE 1 EA SYR EXT STA (12:36)
[2020-03-01 12:52] LABS: Basophils # (auto) 0.01 K/uL (0-0.2); Basophils % (auto) 0.2 %; Eosinophils % (auto) 1.7 %; Hematocrit (blood only) 39.1 % (42-52); Hemoglobin 13.4 g/dL (14.0-18.0); Immature Granulocytes # (auto) 0.01 K/uL (0.00-0.02); Immature Granulocytes % (auto) 0.2 %; Lymphocytes # (auto) 1.36 K/uL (1.2-3.4); Lymphocytes % (auto) 22.6 %; Mean Corpuscular Hgb Conc 34.3 g/dL (32-36); Mean Corpuscular Volume 93.3 fL (80-100); Mean Platelet Volume 10.2 fL (7.4-10.4); Monocytes # (auto) 0.59 K/uL (0.11-0.59); Monocytes % (auto) 9.8 %; Neutrophils # (auto) 3.95 K/uL (1.4-6.5); Neutrophils % (auto) 65.5 %; Platelet Count 111 K/uL (130-400); RDW Standard Deviation 44.4 fL (36.4-46.3); Red Blood Count 4.19 M/uL (4.7-6.1); White Blood Count 6.02 K/uL (4.8-10.8)
--- NOTE | 2020-03-01 12:56 | XRay Report ---
XR chest 1V portable HISTORY: 74 years-old Male weakness acute weakness COMPARISON: Chest radiograph 10/08/2018 TECHNIQUE: Portable AP view of the chest FINDINGS: Cardiomediastinal and hilar silhouettes are within normal limits. No pneumothorax, pleural effusion, airspace consolidation or overt pulmonary edema. Degenerative changes of the shoulders and spine. The patient is slightly rotated towards the left. IMPRESSION: No acute process. ACT 112: Negative or not required by law. The above report was generated using voice recognition software. It may contain grammatical, syntax o r spelling errors. Electronically signed by: Brant Callaway M.D. 03/01/2020 12:55 PM
[2020-03-01 13:03] LABS: INR 1.1 (0.9-1.1); Prothrombin Time 11.4 Seconds (9.0-12.0)
--- NOTE | 2020-03-01 13:12 | Emergency Department Note ---
Impression & Plan Fall, Confusion, Contusion of face, Facial laceration ED Provider Note Provider: Denilson Jack MD DATE OF SERVICE: 03/01/2020 CHIEF COMPLAINT: Fall, confusion HISTORY OF PRESENT ILLNESS: Patient is a 74-year-old gentleman history of diabetes, CAD, hypertension, worsening confusion over several months on aspirin presented today after wandering from home and falling in a driveway. Patient son states on the ground about a mile away from home in a driveway with some right-sided facial abrasions. Is able to lift them although is little bit weak and put him in the car and bring him here for evaluation. Evidently he states over the past several months there is been some worsening memory issues and seen by the his primary doctor within the last week. Patient does not know who the president is and what year it is. Evidently is been prescribed some dementia medication such as Aricept and referral for neurology was made. They did not follow-up appointment till April. The patient denies any significant pain. He has obvious evidence of some abrasion overlying the right face and chin as well as abrasion on the bilateral palms and slightly on each knee. Denies significant pain in the wrists or knees. Denies any chest pain or shortness of breath. Denies any dizziness. REVIEW OF SYSTEMS: A total of 10 review of systems was obtained and negative except as stated above in the HPI. PAST MEDICAL HISTORY: As noted above MEDICATIONS: Reviewed home medication list. SOCIAL HISTORY: Lives at home with son and . No drug or alcohol use reported. PHYSICAL EXAM: GENERAL: alert and oriented to person in no acute distress on stretcher Head: Patient with swelling and contusion around the right eye particularly superiorly. There is a small 10 mm laceration underlying the right eye. No evidence of nasal bone tenderness or maxillofacial tenderness. No jawline tenderness though some abrasion over the chin is noted. Denies dental injury. EYES: No injection, discharge or icterus. PERRL, EOMI. NECK: Trachea midline. Supple. ENT: Mucous membranes pink and moist. LUNGS: Airway patent. No retractions. Breath sounds clear HEART: Regular rate and rhythm. No chest wall tenderness ABDOMEN: Soft and non-tender, without guarding or rebound. SKIN: Acyanotic, warm, dry, without rashes EXTREMITIES: Without swelling, tenderness or deformity except for some slight bilateral abrasions right greater than left around the knees without tenderness with range of motion around the joint line. No obvious deformities otherwise. There are some bilateral abrasions on the palms of the hands without snuffbox tenderness or significant deformity or tenderness of the wrist. Neurologically intact in all 4 extremities. No active bleeding. NEUROLOGICAL: No focal deficits. No aphasia. No facial droop or slurred speech. Patient not oriented to president or the current year. Unable to provide information surrounding current events. Thinks that his son in his room is actually his brother. EK bpm normal sinus rhythm without PVC or PAC. Intraventricular conduction delay is noted without acute ST segment elevation or depression. Inferior T wave inversions noted in lead III. CONTINUOUS CARDIAC MONITORING: was ordered and showed a heart rate of 74 bpm in normal sinus rhythm with slight interventricular conduction delay LACERATION REPAIR: Performed by myself Patient, procedure, and site were verified immediately before the procedure. Appropriate neurovascular exam was performed to test sensation, motor function and perfusion. The skin around the wound was prepped with Betadine. Anesthesia was provided using LET gel Wound was washed with saline Wound was explored to its base. There was no visible foreign body in the wound. The laceration was repaired by means of a single layer closure. Skin was closed with 6-0 fast gut interrupted sutures x2 Total wound length was 1 cm. Good hemostasis and cosmetic result. Patient tolerated the procedure well. Patient's hypertension was referred to hospitalist GCS 14, slight confusion to events HOSPITAL COURSE: 1224 Patient was first seen and H&P performed. Patient's son voices concerns about his patient's memory decline. 1400 Patient reassessed and updated. Patient was resting in bed and suture was closed. Discussed findings. Patient's now at bedside. She reports he seen several years ago Dr. De Leon from neurology. Had a long discussion with both the patient and his regarding further observation here versus working with case management for closer neurological follow-up. 1523 discussed with patient and accelerated neurology follow-up. is somewhat tearful at times and states that she feels that he should stay and he was agreement with this at this time. Discussed with the hospitalist for further inpatient observation. Patient's laboratory studies and imaging reviewed. Differential includes Fracture, dislocation, contusion, intra-abdominal, pneumothorax, intrathoracic, intracranial, neurologic, compartment syndrome, rhabdomyolysis, as well as other pathologies. IMPRESSION/MEDICAL DECISION MAKING: Patient presents after fall with evidence of abrasion and small, face as well as abrasions a on the bilateral wrists and knees. Tetanus up-to-date. Let gel was applied and small laceration under the left eye was repaired with two dissolvable suture as above. This was done by myself. Basic labs and EKG were obtained as well as imaging of the head face and neck given the fall. Son reports concerns for worsening cognitive status and concerns for underlying dementia. CT the head and cervical spine and face was completed without evidence of acute intracranial injury, cervical spine injury, or facial fractures. Blood work is unremarkable. The reported history to have concerns that this is related to a worsening underlying dementia due to the chronic nature of it. Discussed with both the patient and options of observation here versus attempting closer outpatient follow-up with neurology. Discussed that there are risks associated with hospital stays including nosocomial infections as well as delirium issues. Patient's states that he has had delirious issues in the past with stays. Case management was able to accelerate outpatient follow-up for the patient in neurology clinic to within 2 weeks however discussed with the patient his again and they felt uncomfortable going home. They wish to stay and be evaluated by neurology during observation here. Discussed the details with them. Hospitalist was contacted. DIAGNOSIS: Fall, facial laceration, wrist and knee abrasions, confusion DISPOSITION: Hospitalist will evaluate Patient was agreeable with this plan. Past Med/Surg History Social History Smoking Status: Smoker, status unknown Second Hand Exposure: No; Hx Alcohol Use: No Hx Substance Use: No Preferred Language: Burmese Communication Ability: Effective Senior Oracle Database Administrator Required: No Beliefs That Will Affect Care: None Current Living Situation: Spouse Feels Safe at Home: Yes Allergies Allergies Allergy/AdvReac Type Severity Reaction Status Date / Time pregabalin Allergy Unknown disorientat Verified 03/01/20 12:44 ion Home Meds Home Medications Medication Instructions Recorded Confirmed aspirin [Aspir-81] 81 mg PO DAILY 10/08/18 03/01/20 cyanocobalamin (vitamin B-12) 1,000 mcg PO DAILY tab 07/12/19 03/01/20 1,000 mcg tablet glipizide 5 mg tablet See Rx Instructions PO DAILY tab 01/12/20 03/01/20 metoprolol tartrate 25 mg tablet 25 mg PO QAM tab 02/27/20 03/01/20 Previous Rx's Medication Instructions Recorded lisinopril 20 mg tablet 20 mg PO BID #180 tab 08/09/19 metformin 1,000 mg tablet 1,000 mg PO BID #180 tab 10/10/19 hydrochlorothiazide 25 mg tablet 25 mg PO DAILY #90 tab 10/11/19 simvastatin 40 mg tablet 40 mg PO QPM #90 tab 10/11/19 donepezil 10 mg tablet 10 mg PO DAILY #90 tab 02/27/20 Results & Data (ED) Vital Signs Vital Signs - 24 hr 03/01/20 12:14 03/01/20 12:50 03/01/20 12:58 Temperature 36.7 C Temperature Source Oral Pulse Rate 77 76 Pulse Rate from SpO2 Sensor Respiratory Rate 20 16 Respiratory Effort / Characteristics Non-Labored Spontaneous Respiratory Depth Normal Blood Pressure 136/71 Blood Pressure Mean 92 Pulse Oximetry 97 93 Oxygen Delivery Method Room Air Room Air Sepsis Recent Fever Within 48 Hours No Sepsis New/Unexplained Change in Mental Status No Sepsis Action Taken by Nursing No Action Required 03/01/20 13:00 03/01/20 13:10 03/01/20 13:26 Temperature Temperature Source Pulse Rate 80 83 70 Pulse Rate from SpO2 Sensor 71 Respiratory Rate 15 19 17 Respiratory Effort / Characteristics Respiratory Depth Blood Pressure Blood Pressure Mean Pulse Oximetry 98 Oxygen Delivery Method Sepsis Recent Fever Within 48 Hours Sepsis New/Unexplained Change in Mental Status Sepsis Action Taken by Nursing 03/01/20 13:30 03/01/20 13:37 03/01/20 13:40 Temperature Temperature Source Pulse Rate 76 69 78 Pulse Rate from SpO2 Sensor 75 71 78 Respiratory Rate 14 16 20 Respiratory Effort / Characteristics Respiratory Depth Blood Pressure 123/64 Blood Pressure Mean 74 Pulse Oximetry 98 98 98 Oxygen Delivery Method Sepsis Recent Fever Within 48 Hours Sepsis New/Unexplained Change in Mental Status Sepsis Action Taken by Nursing 03/01/20 13:50 03/01/20 14:00 03/01/20 14:01 Temperature Temperature Source Pulse Rate 78 78 77 Pulse Rate from SpO2 Sensor 77 78 78 Respiratory Rate 10 L 15 15 Respiratory Effort / Characteristics Respiratory Depth Blood Pressure 145/76 H Blood Pressure Mean 84 Pulse Oximetry 99 99 97 Oxygen Delivery Method Sepsis Recent Fever Within 48 Hours Sepsis New/Unexplained Change in Mental Status Sepsis Action Taken by Nursing 03/01/20 14:10 03/01/20 14:20 03/01/20 14:30 Temperature Temperature Source Pulse Rate 80 72 67 Pulse Rate from SpO2 Sensor 82 74 66 Respiratory Rate 16 13 17 Respiratory Effort / Characteristics Respiratory Depth Blood Pressure 156/74 H Blood Pressure Mean 97 Pulse Oximetry 99 99 97 Oxygen Delivery Method Sepsis Recent Fever Within 48 Hours Sepsis New/Unexplained Change in Mental Status Sepsis Action Taken by Nursing 03/01/20 14:31 03/01/20 14:40 03/01/20 14:50 Temperature Temperature Source Pulse Rate 75 80 75 Pulse Rate from SpO2 Sensor 75 79 78 Respiratory Rate 17 15 15 Respiratory Effort / Characteristics Respiratory Depth Blood Pressure Blood Pressure Mean Pulse Oximetry 98 98 97 Oxygen Delivery Method Sepsis Recent Fever Within 48 Hours Sepsis New/Unexplained Change in Mental Status Sepsis Action Taken by Nursing 03/01/20 15:00 03/01/20 16:17 03/01/20 16:18 Temperature Temperature Source Pulse Rate Pulse Rate from SpO2 Sensor 71 69 Respiratory Rate Respiratory Effort / Characteristics Respiratory Depth Blood Pressure 139/72 147/72 H Blood Pressure Mean 80 88 Pulse Oximetry 99 98 Oxygen Delivery Method Sepsis Recent Fever Within 48 Hours Sepsis New/Unexplained Change in Mental Status Sepsis Action Taken by Nursing 03/01/20 16:20 03/01/20 16:30 03/01/20 16:31 Temperature Temperature Source Pulse Rate Pulse Rate from SpO2 Sensor 70 73 73 Respiratory Rate Respiratory Effort / Characteristics Respiratory Depth Blood Pressure 130/75 Blood Pressure Mean 89 Pulse Oximetry 91 99 98 Oxygen Delivery Method Sepsis Recent Fever Within 48 Hours Sepsis New/Unexplained Change in Mental Status Sepsis Action Taken by Nursing 03/01/20 16:40 03/01/20 16:50 03/01/20 17:00 Temperature Temperature Source Pulse Rate Pulse Rate from SpO2 Sensor 78 69 69 Respiratory Rate Respiratory Effort / Characteristics Respiratory Depth Blood Pressure 140/76 Blood Pressure Mean 89 Pulse Oximetry 97 98 97 Oxygen Delivery Method Sepsis Recent Fever Within 48 Hours Sepsis New/Unexplained Change in Mental Status Sepsis Action Taken by Nursing 03/01/20 17:01 03/01/20 17:10 03/01/20 17:20 Temperature Temperature Source Pulse Rate Pulse Rate from SpO2 Sensor 70 64 64 Respiratory Rate Respiratory Effort / Characteristics Respiratory Depth Blood Pressure Blood Pressure Mean Pulse Oximetry 96 98 98 Oxygen Delivery Method Sepsis Recent Fever Within 48 Hours Sepsis New/Unexplained Change in Mental Status Sepsis Action Taken by Nursing 03/01/20 17:30 03/01/20 17:31 03/01/20 17:40 Temperature Temperature Source Pulse Rate Pulse Rate from SpO2 Sensor 67 66 67 Respiratory Rate Respiratory Effort / Characteristics Respiratory Depth Blood Pressure 129/70 Blood Pressure Mean 97 Pulse Oximetry 98 97 100 Oxygen Delivery Method Sepsis Recent Fever Within 48 Hours Sepsis New/Unexplained Change in Mental Status Sepsis Action Taken by Nursing Laboratory Data Result diagrams: 03/01/20 12:40 03/01/20 12:40 Lab Results 03/01/20 03/01/20 03/01/20 Range/Units 12:40 12:40 12:40 WBC 6.02 (4.8-10.8) K/uL RBC 4.19 L (4.7-6.1) M/uL Hgb 13.4 L (14.0-18.0) g/dL Hct 39.1 L (42-52) % MCV 93.3 (80-100) fL MCH 32.0 (25-34) pg MCHC 34.3 (32-36) g/dL RDW Std Deviation 44.4 (36.4-46.3) fL RDW Coeff of [place] 13.0 (11.5-14.5) % Plt Count 111 L (130-400) K/uL MPV 10.2 (7.4-10.4) fL Immature Gran % (Auto) 0.2 % Neut % (Auto) 65.5 % Lymph % (Auto) 22.6 % [place] % (Auto) 9.8 % Eos % (Auto) 1.7 % Baso % (Auto) 0.2 % Neut # (Auto) 3.95 (1.4-6.5) K/uL Lymph # (Auto) 1.36 (1.2-3.4) K/uL [place] # (Auto) 0.59 (0.11-0.59) K/uL Eos # (Auto) 0.10 (0-0.5) K/uL Baso # (Auto) 0.01 (0-0.2) K/uL Immature Gran # (Auto) 0.01 (0.00-0.02) K/uL PT 11.4 (9.0-12.0) Seconds INR 1.1 (0.9-1.1) Sodium 144 (136-145) mmol/L Potassium 3.9 (3.5-5.1) mmol/L Chloride 110 H (98-107) mmol/L Carbon Dioxide 25 (21-32) mmol/L Anion Gap 9.0 (3-11) BUN 24 H (7-18) mg/dl Creatinine 1.42 H (0.6-1.4) mg/dl Est Cr Clr Drug Dosing 51.8 ml/min Est GFR ( Amer) 56.4 Est GFR (Non-Af Amer) 48.7 BUN/Creatinine Ratio 16.8 (10-20) Glucose 72 (70-99) mg/dl Calcium 10.1 (8.5-10.1) mg/dl Magnesium 1.8 (1.8-2.4) mg/dl Total Bilirubin 0.7 (0.2-1) mg/dl AST 19 (15-37) U/L ALT 22 (12-78) U/L Alkaline Phosphatase 61 (45-117) U/L Troponin I < 0.015 (0-0.045) ng/ml Total Protein 7.8 (6.4-8.2) gm/dl Albumin 4.1 (3.4-5.0) gm/dl Globulin 3.7 (2.5-4.0) gm/dl Albumin/Globulin Ratio 1.1 (0.9-2) TSH 1.710 (0.300-4.500) uIu/ml Administered Medications Discontinued Medications Lidocaine (Let Gel 4%/1:100/0.5%) 1 ea EXT NOW STA Stop: 03/01/20 12:37 Last Admin: 03/01/20 12:42 Dose: 1 ea Documented by: [id number] Discharge Plan Visit Data Chief Complaint: Fall Stated Complaint: FALL,FACIAL INJURIES ED Provider: Denilson Jack Discharge Problem: Fall, Confusion, Contusion of face, Facial laceration Patient Disposition: Being Evaluated by Hospitalist Forms Stand Alone Forms: My [facility] Prescriptions Prescriptions: No Action lisinopril [Zestril] 20 mg tablet 20 mg PO BID Qty: 180 RF: 3 metformin [Glucophage] 1,000 mg tablet 1,000 mg PO BID Qty: 180 RF: 3 hydrochlorothiazide 25 mg tablet 25 mg PO DAILY Qty: 90 RF: 3 simvastatin [Zocor] 40 mg tablet 40 mg PO QPM Qty: 90 RF: 3 metoprolol tartrate 25 mg tablet 25 mg PO QAM RF: 0 donepezil 10 mg tablet 10 mg PO DAILY Qty: 90 RF: 3 glipizide 5 mg tablet See Rx Instructions PO DAILY RF: 0 aspirin [Aspir-81] 81 mg Tablet,Delayed Release (Dr/Ec) 81 mg PO DAILY RF: 0 cyanocobalamin (vitamin B-12) [Vitamin B-12] 1,000 mcg tablet 1,000 mcg PO DAILY RF: 0 Referrals Referrals: Олег Mcfarlane III, MD [Primary Care Provider] - Viki Cast PA-C [Physician Lobby Attendant] - 03/13/20 8:30 am (You have a follow-up appointment with neurology March 13, 2020 at 8:30am.)
[2020-03-01 13:18] LABS: Alanine Aminotransferase 22 U/L (12-78); Albumin Level 4.1 gm/dl (3.4-5.0); Aspartate Aminotransferase 19 U/L (15-37); BUN Creatinine Ratio 16.8 (10-20); Blood Urea Nitrogen 24 mg/dl (7-18); Calcium 10.1 mg/dl (8.5-10.1); Carbon Dioxide 25 mmol/L (21-32); Chloride 110 mmol/L (98-107); Creatinine Clr Calc Pharmacy 51.8 ml/min; Est GFR (African American) 56.4; Est GFR (Non-African American) 48.7; Glucose 72 mg/dl (70-99); Magnesium 1.8 mg/dl (1.8-2.4); Potassium 3.9 mmol/L (3.5-5.1); Sodium 144 mmol/L (136-145)
[2020-03-01 13:28] LABS: Albumin Globulin Ratio 1.1 (0.9-2); Alkaline Phosphatase 61 U/L (45-117); Bilirubin,Total 0.7 mg/dl (0.2-1); Globulin 3.7 gm/dl (2.5-4.0); Total Protein 7.8 gm/dl (6.4-8.2); Troponin I < 0.015 ng/ml (0-0.045)
--- NOTE | 2020-03-01 13:37 | CT Scan Report ---
CT OF THE HEAD WITHOUT CONTRAST CLINICAL HISTORY: fall COMPARISON STUDY: Head CT and CTA of the head October 08, 2018. TECHNIQUE: Helical axial images of the head were obtained without IV contrast. Automated exposure con trol was utilized for the study. A dose lowering technique was utilized adhering to the principles o f ALARA. FINDINGS: No acute intracranial hemorrhage, midline shift or mass effect is present. The ventricular system is unremarkable. Matter hypodensities are unchanged. The basilar cisterns are patent. No extra -axial collections are present. There are no findings to suggest acute dural sinus thrombosis or acut e territorial infarct. No significant calvarial abnormalities are present. Visualized portions of the sinuses and mastoid air cells are clear. Right periorbital contusion is present. Right globe is inta ct. There is no retrobulbar hematoma. IMPRESSION: 1. No acute intracranial findings. 2. Right periorbital contusion. No calvarial fracture. ACT 112: Negative or not required by law. Electronically signed by: Simba Elizabeth M.D. 03/01/2020 1:35 PM
--- NOTE | 2020-03-01 13:41 | CT Scan Report ---
MAXILLOFACIAL CT WITHOUT CONTRAST CLINICAL HISTORY: Fall. COMPARISON STUDY: Maxillofacial CT April 29, 2013. TECHNIQUE: A maxillofacial CT was performed without IV contrast. Coronal and sagittal reformats were viewed. Automated exposure control was utilized for the study. A dose lowering technique was utiliz ed adhering to the principles of ALARA. FINDINGS: Right periorbital contusion is present. The right globe is intact. There is no retrobulbar hematoma. No acute facial fracture is identified. Alignment of the temporomandibular joints is anatom ic. There is minimal ethmoid sinus mucosal thickening. No skull base fracture is noted. No fracture i s identified within the upper cervical spine. The CT of the cervical spine will be reported separatel y. Incomplete posterior arch of C1 is incidentally noted. IMPRESSION: Right periorbital contusion. No acute facial fracture. ACT 112: Negative or not required by law. Electronically signed by: Simba Elizabeth M.D. 03/01/2020 1:40 PM
--- NOTE | 2020-03-01 13:42 | CT Scan Report ---
CT OF THE CERVICAL SPINE CLINICAL HISTORY: Neck pain status post trauma COMPARISON STUDY: No previous studies for comparison. CT DOSE: 1804.50 mGy.cm TECHNIQUE: CT scan of the cervical spine was performed from the skull base to the thoracic inlet. Marilee ges are reviewed in the axial, sagittal, and coronal planes. IV contrast was not administered for thi s examination. A dose lowering technique was utilized adhering to the principles of ALARA. FINDINGS: The visualized portions of the lung apices reveal no evidence of pneumothorax. The prevertebral soft tissues are normal. No fractures or subluxations are visualized. There are multilevel degenerative changes IMPRESSION: No evidence of acute fracture or traumatic subluxation. ACT 112: Negative or not required by law. Electronically signed by: Olegario Sexton M.D. 03/01/2020 1:40 PM
--- NOTE | 2020-03-01 16:29 | Electrocardiogram Report ---
Test Reason : Blood Pressure : / mmHG Vent. Rate : 070 BPM Atrial Rate : 070 BPM P-R Int : 208 ms QRS Dur : 128 ms QT Int : 414 ms P-R-T Axes : 035 -35 014 degrees QTc Int : 447 ms Normal sinus rhythm Left axis deviation Incomplete right bundle branch block Abnormal ECG When compared with ECG of 08-OCT-2018 17:00, Incomplete right bundle branch block has replaced Right bundle branch block Left anterior fascicular block no longer present Confirmed by Theo Schulte ([id number]) on 03/01/2020 4:28:51 PM Referred By: REFERRED SELF Confirmed By:Theo Schulte
[2020-03-01] MEDS ORDERED: PHARMACY GLYCEMIC MGMT CONSULT PRN (18:08)
[2020-03-01] MEDS ORDERED: GLUCOSE 10 TABS/TUBE PO PRN (18:30)
[2020-03-01] MEDS ORDERED: CARBOHYDRATES FOR HYPOGLYCEMIA PO PRN (18:30)
[2020-03-01] MEDS ORDERED: GLUCOSE 40% GEL 15 GM TUBE PO PRN (18:30)
[2020-03-01] MEDS ORDERED: GLUCAGON FOR INJ 1 MG VIAL IM PRN (18:30)
[2020-03-01] MEDS ORDERED: DEXTROSE 50% 50 ML SYRINGE IV PRN (18:30)
[2020-03-01] MEDS ORDERED: SIMVASTATIN 40 MG TAB PO SCH (21:00)
[2020-03-01] MEDS ORDERED: lisinopriL 20 MG TAB PO SCH (21:00)
[2020-03-01] MEDS: INSULIN ASPART 100 UNITS/ML 3 ML PEN SC SCH (22:25)
--- NOTE | 2020-03-01 23:07 | History & Physical Report ---
Date of Service March 01, 2020 Assessment & Plan (1) Dementia: Patient is admitted with worsenign dementia. Appears this is chronic but has good days and bad days. Today was a bad day. Family wants patient to be evaluated by Neurology prior to discharge. Will admit to medical. Resume home meds. (2) Fall: Likely mechanical. Patient is able to ambulate. (3) Confusion: caused by dementia. (4) Controlled type 2 diabetes mellitus with microalbuminuria: consult glycemic control (5) Peripheral neuropathy: resume home meds. (6) Hypertension: Admission and Anticipated Discharge Date Admission Date: March 01, 2020 History of Present Illness Chief Complaint: memory loss Primary Care Provider: Олег Mcfarlane MD 74 yo male with history of dementia comes in to the hospital because he was wandering from his home. His family found him near a [employer] community and the patient began to run from the family. He however tripped on a driveway and hit his head on the ground. It appears he has been having memory problems for past 8 years now. It initially was mild. The patient's feels it has been much worse over the last 4 months or so. He is starting to wander and get somewhat restless at night. Allergies Allergy/AdvReac Type Severity Reaction Status Date / Time pregabalin Allergy Unknown disorientat Verified 03/01/20 12:44 ion Home Medications Home Medications Medication Instructions Recorded Confirmed Type aspirin [Aspir-81] 81 mg PO DAILY 10/08/18 03/01/20 History cyanocobalamin (vitamin B-12) 1,000 mcg PO DAILY tab 07/12/19 03/01/20 History 1,000 mcg tablet lisinopril 20 mg tablet 20 mg PO BID #180 tab 08/09/19 03/01/20 Rx metformin 1,000 mg tablet 1,000 mg PO BID #180 tab 10/10/19 03/01/20 Rx hydrochlorothiazide 25 mg tablet 25 mg PO DAILY #90 tab 10/11/19 03/01/20 Rx simvastatin 40 mg tablet 40 mg PO QPM #90 tab 10/11/19 03/01/20 Rx glipizide 5 mg tablet See Rx Instructions PO DAILY tab 01/12/20 03/01/20 History donepezil 10 mg tablet 10 mg PO DAILY #90 tab 02/27/20 03/01/20 Rx metoprolol tartrate 25 mg tablet 25 mg PO QAM tab 02/27/20 03/01/20 History Past Med/Surg History Medical History CAD in [place] artery (Acute) Hypertension (Chronic) Hypokalemia Influenza B (Inactive) Peripheral neuropathy (Acute) Surgical History History of back surgery Status post total right knee replacement Family History Mother , age 69 of heart disease. 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 Feels Safe at Home: Yes Safety Concerns: Feels Safe At This Time Review of Systems Constitutional: no sweats and no malaise Eyes: no discharge and no eye pain Ear, Nose, Mouth, Throat: no ear pain and no ear trauma Respiratory: no change in sputum Cardiovascular: no chest pain with activity Gastrointestinal: no abdominal pain and no early satiety Genitourinary: no dysuria Musculoskeletal: no radicular pain and no deformity Integumentary: no acne and no rash Neurologic: + falls Psychiatric: no hopelessness and no change in appetite Endocrine: no polyphagia Hematologic / Lymphatic: no easy bleeding and no lymphadenopathy Allergy / Immunological: no lip swelling Physical Exam Physical Exam: GENERAL: alert and oriented to person in no acute distress, sitting up on the bed. Head: Swelling an d contusion around the right eye with signs of ecchymosis. A 1 cm laceration has been repaired under the right eye No evidence of nasal bone tenderness or maxillofacial tenderness. No jawline tenderness though some abrasion over the chin is noted. Denies dental injury. EYES: No injection, discharge or icterus. PERRL, EOMI bilaterally. NECK: Trachea midline. Supple. ENT: Mucous membranes pink and moist. LUNGS: Airway patent. No retractions. Clear through auscultation. HEART: Regular rate and rhythm. No chest wall tenderness ABDOMEN: Soft and non-tender, without guarding or rebound. SKIN: Acyanotic, warm, dry, without rashes EXTREMITIES: no edema. Neurologically intact in all 4 extremities. No active bleeding. NEUROLOGICAL: No focal deficits. No aphasia. No facial droop or slurred speech. Patient not oriented to presidential candidates or the current year. Unable to provide information surrounding current events. Results & Data Results & Data ([facility]) Vital Signs (Past 12 Hours) Vital Signs Temp Pulse Pulse Resp BP BP BP 03/01/20 21:34 36.7 C 58 L 16 177/74 H 03/01/20 20:09 58 L 18 169/76 H 03/01/20 17:40 03/01/20 17:31 03/01/20 17:30 129/70 03/01/20 17:20 03/01/20 17:10 03/01/20 17:01 03/01/20 17:00 140/76 03/01/20 16:50 03/01/20 16:40 03/01/20 16:31 03/01/20 16:30 130/75 03/01/20 16:20 03/01/20 16:18 147/72 H 03/01/20 16:17 03/01/20 15:00 139/72 03/01/20 14:50 75 15 03/01/20 14:40 80 15 03/01/20 14:31 75 17 03/01/20 14:30 67 17 156/74 H 03/01/20 14:20 72 13 03/01/20 14:10 80 16 03/01/20 14:01 77 15 03/01/20 14:00 78 15 145/76 H 03/01/20 13:50 78 10 L 03/01/20 13:40 78 20 03/01/20 13:37 69 16 123/64 03/01/20 13:30 76 14 03/01/20 13:26 70 17 03/01/20 13:10 83 19 03/01/20 13:00 80 15 03/01/20 12:58 76 16 03/01/20 12:50 03/01/20 12:14 36.7 C 77 20 136/71 Pulse Ox 03/01/20 21:34 99 03/01/20 20:09 97 03/01/20 17:40 100 03/01/20 17:31 97 03/01/20 17:30 98 03/01/20 17:20 98 03/01/20 17:10 98 03/01/20 17:01 96 03/01/20 17:00 97 03/01/20 16:50 98 03/01/20 16:40 97 03/01/20 16:31 98 03/01/20 16:30 99 03/01/20 16:20 91 03/01/20 16:18 98 03/01/20 16:17 99 03/01/20 15:00 03/01/20 14:50 97 03/01/20 14:40 98 03/01/20 14:31 98 03/01/20 14:30 97 03/01/20 14:20 99 03/01/20 14:10 99 03/01/20 14:01 97 03/01/20 14:00 99 03/01/20 13:50 99 03/01/20 13:40 98 03/01/20 13:37 98 03/01/20 13:30 98 03/01/20 13:26 98 03/01/20 13:10 03/01/20 13:00 03/01/20 12:58 03/01/20 12:50 93 03/01/20 12:14 97 PG Care Time/CCT Total # of Minutes Spent Total Time Spent with Patient: Total time spent is greater than 50% in coordination of care (as documented) at patient's floor/unit and/or counseling patient: Coding Level of Care Code 89043 OBS Care - Level 3 Diagnoses Dementia F03.90 Fall W19.XXXA Encounter type: initial encounter Confusion R41.0 Controlled type 2 diabetes mellitus with microalbuminuria E11.29; R80.9 Peripheral neuropathy G62.9 Hypertension I10 Time Spent (min) 50 (1) Fall Encounter type: initial encounter Qualified Code(s): W19.XXXA - Unspecified fall, initial encounter
[2020-03-02 02:13] LABS: Appearance Urine Clear (Clear); Bilirubin Urine Negative (Negative); Blood Urine Negative (Negative); Color Urine Yellow; Glucose Urine UA Negative (Negative); Ketones Urine Trace (Negative); Leukocyte Esterase Urine Negative (Negative); Nitrite Urine Negative (Negative); Protein Urine Negative (Negative); Specific Gravity Urine 1.007 (1.000-1.030); Urobilinogen Urine Negative (Negative)
[2020-03-02] MEDS ORDERED: HALOPERIDOL LACTATE 5 MG/ML 1 ML VIAL IM PRN (02:25)
--- NOTE | 2020-03-02 08:50 | Pharmacy Report ---
Glycemic Control Consultation - Date of Service March 02, 2020 - Scope Scope: Glycemic Pharmacist consulted for glycemic control and to write orders per [facility] inpatient glycemic control protocol. - Objective Weight: 86.6 kg Accuchecks BSG (last 24hrs): 03/01/20 03/01/20 03/02/20 12:40 22:06 08:30 Glucose 72 POC Glucose 113 H 141 H Laboratory Data (last 24hrs): 03/01/20 12:40 Potassium 3.9 Carbon Dioxide 25 Anion Gap 9.0 Creatinine 1.42 H Est Cr Clr Drug Dosing 51.8 - Recent Pertinent Medications Outpatient Anti-diabetic Regimen: * glipizide 7.5 mg qAM, 5 mg qPM * Metformin 1000 mg PO BIDM * A1c = 5.8 % (02/21/20) - Assessment & Plan Assessment & Plan: ASSESSMENT: * FP is a 74 year old male admitted yesterday s/p fall in driveway * Head CT negative for any acute intracranial findings * Patient with dementia and increasing confusion - will loosen goal range to 120-160 mg/dL in light of dementia and fall risk * BSGs have been well-controlled so far during this admission (ranging 72-141 mg/dL) * Lunch BSG today of 222 mg/dL - will institute conservative carb ratio and loosen CF PLAN FOR INPATIENT GLYCEMIC CONTROL: * Holding outpatient oral diabetes medications * Basal insulin * Hold for now * Bolus insulin - initiate conservative parameters * NovoLog per scale ACHS or Q6hrs while NPO * Goal Range: Low 120 mg/dL - High 160 mg/dL * Correction Factor: 45 mg/dL/unit * Nutritional / Prandial insulin per carb ratio of 1 unit per 15 grams CHO consumed * Please note that the plan above was derived based on current level of insulin resistance and hospital stress. These recommendations are appropriate for inpatient admission only. Plan of care upon discharge will need to be reassessed to avoid potential outpatient hypo/hyperglycemia. Thank you.
[2020-03-02] MEDS ORDERED: CYANOCOBALAMIN 500 MCG TABLET (VITAMIN B-12) PO SCH (09:00)
[2020-03-02] MEDS ORDERED: hydroCHLOROthiazide 25 MG TAB PO SCH (09:00)
[2020-03-02] MEDS ORDERED: DONEPEZIL HCL 10 MG TAB PO SCH (09:00)
[2020-03-02] MEDS ORDERED: METOPROLOL TARTRATE 25 MG TAB PO SCH (09:00)
[2020-03-02] MEDS ORDERED: ASPIRIN 81 MG ECTAB PO SCH (09:00)
[2020-03-02] MEDS: INSULIN ASPART 100 UNITS/ML 3 ML PEN SC SCH ×2 (09:27→12:48)
--- NOTE | 2020-03-02 12:03 | Neurology Consultation ---
Date of Consultation March 02, 2020 Assessment & Plan (1) Dementia: (2) Gait disturbance: (3) Fall: (4) Contusion of face: (5) Peripheral neuropathy: The patient has a progressive dementia over time. It is fairly significant currently and he is starting to wander. The patient has a gait disturbance and falls. 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 I see no evidence of Parkinson's disease. His fall yesterday produced facial contusion and laceration. He has close head trauma and headache but no other obvious concussion symptoms currently. The etiology of the dementia is likely mixed and I cannot exclude vascular or a type of senile dementia of the Alzheimer's type. Recommendations: 1. Check Lyme antibody titers and B12 levels. 2. MRI of the brain with and without contrast 3. Consider complete neuropsychological testing to further evaluate the dementia, but this will be arranged as an outpatient. 4. Physical therapy to evaluate gait and perhaps he needs a assistive device . He probably should have outpatient physical therapy as well. 5. initiate donepezil 10 milligrams a day. 6. follow up in Neurology in 1-2 weeks. Overall, I spent a total of 60 minutes with this case including review of records, direct evaluation the patient at bedside, and discussing the case with the patient and at bedside, RN at bedside, and Dr. Betancourt, including differential diagnosis and treatment options. History of Present Illness Reason for Consultation: patient is a 74-year-old, who I was asked to see at the request of Dr. Betancourt, for neurologic consultation regarding dementia and gait disturbance Requesting Physician: Dr. Betancourt Attending Physician: Paulino Betancourt History of Present Illness patient's is present in the room who helps at considerably to the history. The patient has had hypertension for approximately 25 years and type 2 diabetes for approximately 20. For about 8 years now he is had memory difficulties. It started out very insidiously and mildly and gradually has gotten worse over time. The patient's feels it has been much worse over the last 4 months or so. He has short and long-term memory problems and is having times that he does not recognize family members. he is starting to wander and get somewhat restless at night. Patient has had balance problems for several years as well. He will fall and he did so 2 weeks ago hitting the back of his head. On March 01 he was found on a driveway away from home face down. He apparently had wandered off and fell hitting his face. He arrived to the emergency room March 01 at 1214 with a temperature of 36.7, pulse 77 and regular, blood pressure 136/71, and O2 saturation 97 percent. He was described as awake and alert but not fully oriented. He would follow some one-step commands. He had a contusion around his right eye and chin. There was a laceration requiring stitches by the emergency room physician. CBC was unremarkable and Chem profile showed a mildly increased BUN and creatinine. These H was normal at 1.7 , and urinalysis was unremarkable. CT scan of the head showed no acute changes. CT scan of the face and neck showed no fractures. This morning, the patient has no complaint of pain but he does have bifrontal headache of a dull aching nature. He seems to be at his baseline according to his . He has no vision issues or dizziness. He has no ringing in his ears. He feels that his legs are weak and tires easily but he has no change in strength. The patient denies tremor, stiffness or incontinence of urine. The states that he occasionally has incontinence of urine and has been slower. She says that if he walks sometimes he will stumble or he can stop himself and tripped. He is not vertiginous or lightheaded with standing or position changes Allergies Allergy/AdvReac Type Severity Reaction Status Date / Time pregabalin Allergy Unknown disorientat Verified 03/01/20 12:44 ion Home Medications Home Medications Medication Instructions Recorded Confirmed Type aspirin [Aspir-81] 81 mg PO DAILY 10/08/18 03/01/20 History cyanocobalamin (vitamin B-12) 1,000 mcg PO DAILY tab 07/12/19 03/01/20 History 1,000 mcg tablet lisinopril 20 mg tablet 20 mg PO BID #180 tab 08/09/19 03/01/20 Rx metformin 1,000 mg tablet 1,000 mg PO BID #180 tab 10/10/19 03/01/20 Rx hydrochlorothiazide 25 mg tablet 25 mg PO DAILY #90 tab 10/11/19 03/01/20 Rx simvastatin 40 mg tablet 40 mg PO QPM #90 tab 10/11/19 03/01/20 Rx glipizide 5 mg tablet See Rx Instructions PO DAILY tab 01/12/20 03/01/20 History donepezil 10 mg tablet 10 mg PO DAILY #90 tab 02/27/20 03/01/20 Rx metoprolol tartrate 25 mg tablet 25 mg PO QAM tab 02/27/20 03/01/20 History Patient History Medical History CAD in [place] artery (Acute) Hypertension (Chronic) Hypokalemia Influenza B (Inactive) Peripheral neuropathy (Acute) Surgical History History of back surgery Status post total right knee replacement Family History Mother , age 69 of heart disease. 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 Feels Safe at Home: Yes Safety Concerns: Feels Safe At This Time Review of Systems Constitutional: + fatigue and + weakness; no fever Eyes: no diplopia, no eye pain and no worsening vision Ear, Nose, Mouth, Throat: no ear pain, no tinnitus, no hearing loss, no dizziness, no hoarseness and no dysphagia Respiratory: no cough and no dyspnea Cardiovascular: no chest pain, no palpitations and no lightheadedness Gastrointestinal: no abdominal pain, no nausea and no vomiting Genitourinary: no dysuria and no urinary incontinence Musculoskeletal: no back pain, no neck pain, no radicular pain, no joint pain and no myalgia Integumentary: no rash and no lesions Neurologic: + headache(s), + confusion and + memory loss; no gait abnormality, no localized weakness, no generalized weakness, no tingling, no numbness, no tremor(s), no abnormal movements and no abnormal speech Psychiatric: no depression, no irritability, no anxiety, no difficulty concentrating, no confusion and no hallucinations Endocrine: no fatigue and no flushing Hematologic / Lymphatic: no easy bleeding and no easy bruising Allergy / Immunological: no urticaria and no problem reported Exam (Neuro) Physical Exam: The patient is right-handed. The patient is awake, alert, and attentive. Speech is normal without any aphasia or dysarthria. he can name objects, repeat phrases, and has normal spontaneous speech. mood is reasonable and affect is appropriate. His memory is poor although he knows his name, age, and where he lives. He did not know the month, the year, the president, the date, or the day. Pupils are 3 mm bilaterally and reactive to light. Extraocular eye muscles are intact without nystagmus. Visual acuity and visual [place] seem normal grossly to confrontation. There are no deficits to sensation in the face in all 3 distributions of the fifth cranial nerve bilaterally. Corneal reflexes are positive bilaterally. Facial strength and symmetry was normal bilaterally. Hearing seems normal to whisper and finger rub bilaterally. Palate moves well without asymmetry. There is normal sternocleidomastoid and trapezius (shoulder shrug) strength bilaterally. Tongue is midline with good strength bilaterally. Neck has a full range of motion without discomfort. There are no cervical bruits bilaterally. There are no cranial or ocular bruits. Heart is without murmur. There is a regular rhythm and rate. Cervical, thoracic, and lumbar spine are nontender to palpation. Gait is narrow based With positive arm swing but he is unsteady and cautious. Turns are a little more unsteady. Stance with feet together and eyes open is somewhat unstable and deteriorates completely with eyes closed. He has positive back pulling test. With outstretched arms there is no drift. There are no resting, postural, or action tremors. There is no ataxia with finger to nose testing. There is good facility in the hands. No other abnormal involuntary movements are noted. Motor strength is 5/5 diffusely in the arms bilaterally including deltoids, biceps, triceps, brachioradialis, wrist flexors and extensors, social media assistant, and intrinsic hand muscles. Motor strength is 5/5 diffusely in the legs bilaterally including hip flexors, quadriceps, hamstrings, gastrocnemius, tibialis anterior, tibialis posterior, and Peroneii muscles. Toe extensors are normal and there is good bulk in the extensor digitorum brevis muscles bilaterally. The limbs have good tone without rigidity or spasticity. There is no atrophy noted in the muscles. Muscle bulk is normal, there is no tenderness to palpation, no myotonia to percussion, and no fasciculations seen. Sensory examination Reveals a stocking-glove distribution pinprick and touch loss symmetrically. Reflexes are 1/4 in the biceps, triceps, and brachioradialis tendons bilaterally. quadriceps and Achilles tendon reflexes are absent bilaterally. There is no clonus bilaterally. Toes are downgoing with plantar stimulation bilaterally. Peripheral pulses are present and of normal quality distally in all 4 limbs. There is no peripheral edema noted in the limbs. Results & Data ([facility]) Vital Signs (Past 12 Hours) Vital Signs Temp Pulse Resp BP BP Pulse Ox 03/02/20 08:47 72 144/73 H 03/02/20 06:57 36.7 C 70 18 122/68 98 PG Care Time/CCT Total # of Minutes Spent Total Time Spent with Patient: Total time spent is greater than 50% in coordination of care (as documented) at patient's floor/unit and/or counseling patient: Coding Level of Care Code 70570 Initial Inpt Care Lvl 3 Diagnoses Dementia F03.90 Gait disturbance R26.9 Fall W19.XXXA Encounter type: initial encounter Contusion of face S00.83XA Encounter type: initial encounter Peripheral neuropathy G62.9 Time Spent (min) 60 (1) Fall Encounter type: initial encounter Qualified Code(s): W19.XXXA - Unspecified fall, initial encounter (2) Contusion of face Encounter type: initial encounter Qualified Code(s): S00.83XA - Contusion of other part of head, initial encounter
--- NOTE | 2020-03-02 13:39 | Magnetic Resonance Report ---
MR brain wo con HISTORY: 74 years-old Male dementia acute head injury status post fall. Dementia. COMPARISON: Head CT 03/01/2020 TECHNIQUE: Multiplanar multisequence MRI of the brain was obtained without the use of IV contrast. FINDINGS: Mold Capper Helper localizer images demonstrate no gross extracranial abnormality. There is no restricted diffusio n to suggest acute or subacute infarct. Midline structures including the corpus callosum, brainstem, optic chiasm, pituitary and pineal glands appear unremarkable the sagittal T1 series. No cerebellar t onsillar herniation. Degenerative changes are noted involving the imaged cervical spine. No acute intracranial hemorrhage, midline shift, abnormal extra axial collection, hydrocephalus or in tracranial mass. Age-related involutional changes with mild ex vacuo ventriculomegaly. Study is mildl y motion degraded. Extensive T2/FLAIR hyperintensities about the white matter are suggestive of proba ble chronic microvascular ischemic disease. No pathologic blooming artifact on the T2 star series. Th e major vascular flow voids appear patent. Cerebral venous sinuses are also patent. Mild mucosal thic kening of the nasal turbinates and ethmoid air cells. The skull, orbits and soft tissues are unremark able. IMPRESSION: 1. No acute intracranial abnormality. 2. Age-related involutional changes with extensive T2/FLAIR hyperintensities throughout the white mat ter suggestive of chronic microvascular ischemic disease. ACT 112: Negative or not required by law. The above report was generated using voice recognition software. It may contain grammatical, syntax o r spelling errors. Electronically signed by: Brant Callaway M.D. 03/02/2020 1:37 PM
[2020-03-02 14:11] LABS: Lyme Ab IgM w/WB Rflx Negative (Negative)
[2020-03-02 14:12] LABS: Lyme Ab IgG w/WB Rflx Negative (Negative)
[2020-03-02] MEDS ORDERED: Nursing to Pharmacy Communication SCH (14:45)
[2020-03-03] MEDS ORDERED: DONEPEZIL HCL 10 MG TAB PO SCH ×2 (09:00)
--- NOTE | 2020-03-09 08:29 | Discharge Summary ---
Date of Service March 02, 2020 Admission HPI Per Admitting Provider 74 yo male with history of dementia comes in to the hospital because he was wandering from his home. [place] the patient began to run from the family. He however tripped on a driveway and hit his head on the ground. It appears he has been having memory problems for past 8 years now. It initially was mild. The patient's feels it has been much worse over the last 4 months or so. He is starting to wander and get somewhat restless at night. Principal Diagnosis dementia Discharge Exam GENERAL: alert and oriented to person in no acute distress, sitting up on the bed. Head: Swelling an d contusion around the right eye with signs of ecchymosis. A 1 cm laceration has been repaired under the right eye No evidence of nasal bone tenderness or maxillofacial tenderness. No jawline tenderness though some abrasion over the chin is noted. Denies dental injury. EYES: No injection, discharge or icterus. PERRL, EOMI bilaterally. NECK: Trachea midline. Supple. ENT: Mucous membranes pink and moist. LUNGS: Airway patent. No retractions. Clear through auscultation. HEART: Regular rate and rhythm. No chest wall tenderness ABDOMEN: Soft and non-tender, without guarding or rebound. SKIN: Acyanotic, warm, dry, without rashes EXTREMITIES: no edema. Neurologically intact in all 4 extremities. No active bleeding. NEUROLOGICAL: No focal deficits. No aphasia. No facial droop or slurred speech. Patient not oriented to presidential candidates or the current year. Unable to provide information surrounding current events. Discharge Data Allergies Allergy/AdvReac Type Severity Reaction Status Date / Time pregabalin Allergy Unknown disorientat Verified 03/01/20 12:44 ion Consultations 03/01/20 15:28 ED Decision to Admit Stat 03/01/20 17:32 Consult Neurology Routine Ordered Studies 03/01/20 12:36 CT cervical spine wo con Stat CT facial bones wo con Stat CT head/brain wo con Stat 03/02/20 12:45 MR brain wo con Routine Hospital Course (1) Dementia: Patient is admitted with worsening dementia. Appears this is chronic but has good days and bad days. Today was a bad day. Family wants patient to be evaluated by Neurology prior to discharge. Will admit to medical. On day 2 of hospital stay, Patient was evaluated by Neuro: The patient has a progressive dementia over time. It is fairly significant currently and he is starting to wander. The patient has a gait disturbance and falls. 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 I see no evidence of Parkinson's disease. His fall yesterday produced facial contusion and laceration. He has close head trauma and headache but no other obvious concussion symptoms currently. The etiology of the dementia is likely mixed and I cannot exclude vascular or a type of senile dementia of the Alzheimer's type. Recommendations: 1. Check Lyme antibody titers and B12 levels. 2. MRI of the brain with and without contrast 3. Consider complete neuropsychological testing to further evaluate the dementia, but this will be arranged as an outpatient. 4. Physical therapy to evaluate gait and perhaps he needs a assistive device . He probably should have outpatient physical therapy as well. 5. initiate donepezil 10 milligrams a day. 6. follow up in Neurology in 1-2 weeks. (2) Fall: Likely mechanical. Patient is able to ambulate. (3) Confusion: caused by dementia. (4) Controlled type 2 diabetes mellitus with microalbuminuria: consult glycemic control (5) Peripheral neuropathy: resume home meds. (6) Hypertension: Total Time Total Time Spent Total Time Spent (In Minutes): 32 Total Time Includes: Examination of the Patient, Discharge Planning and Medication Reconciliation Discharge Plan Discharge Items Patient Disposition: Home - Self-Care Reason For Visit: CONFUSION,DEMENTIA Discharge Diagnosis: Confusion Activity: Resume your previous activity Non-emergency contact: Primary Care Provider Call non-emergency contact if: you have any medication questions Follow-up/Referrals: Олег Mcfarlane III, MD [Primary Care Provider] - Diet: Carb Consistent or DM2 Addtl Attending Provider Instructions: You were diagnosed with dementia. Will have you start aricept. Will have you followup with Dr. Carreon in 2 weeks. Pending Studies at Discharge: No Stand-Alone Forms: My [facility], Smoking Cessation Medications and DC Order Prescriptions: Continued lisinopril [Zestril] 20 mg tablet 20 mg PO BID Qty: 180 RF: 3 metformin [Glucophage] 1,000 mg tablet 1,000 mg PO BID Qty: 180 RF: 3 hydrochlorothiazide 25 mg tablet 25 mg PO DAILY Qty: 90 RF: 3 simvastatin [Zocor] 40 mg tablet 40 mg PO QPM Qty: 90 RF: 3 metoprolol tartrate 25 mg tablet 25 mg PO QAM RF: 0 donepezil 10 mg tablet 10 mg PO DAILY Qty: 90 RF: 3 glipizide 5 mg tablet See Rx Instructions PO DAILY RF: 0 aspirin [Aspir-81] 81 mg Tablet,Delayed Release (Dr/Ec) 81 mg PO DAILY RF: 0 cyanocobalamin (vitamin B-12) [Vitamin B-12] 1,000 mcg tablet 1,000 mcg PO DAILY RF: 0 Discharge Orders: Discharge Order (Routine); Ordered 03/02/20 Ordered By: Paulino Fish/Other Patient Handouts: Managing Type 2 Diabetes, Diabetes: Keeping Feet Healthy, ED CAREGIVER SUPPORT for DEMENTIA Admission Data Admit Date/Time: 03/01/20 17:33 Attending Provider: Paulino Betancourt Admit Provider: Paulino Betancourt Primary Care Provider: Олег Mcfarlane III Other Providers: Soraya Klein ; Zack Carreon Other Interventions: Discharge Summary Assessment (RN) Last Done: 03/02/20 15:15 DC Date/Time DO NOT enter until pt leaves facility: 03/02/20 15:47 Coding Level of Care Code D/C Day Management >30 mins Diagnoses Dementia F03.90 Fall W19.XXXA Encounter type: initial encounter Confusion R41.0 Controlled type 2 diabetes mellitus with microalbuminuria E11.29; R80.9 Peripheral neuropathy G62.9 Hypertension I10
== END 2020-03-02 15:47 | disposition home or self-care (01) ==
LOC: 3N 12:11 → ED 12:11 → 3N 20:28
DX: S00.83XA Contusion of other part of head, initial encounter; Z79.84 Long term (current) use of oral hypoglycemic drugs; R29.6 Repeated falls; R26.9 Unspecified abnormalities of gait and mobility; Z79.82 Long term (current) use of aspirin; F03.90 Unspecified dementia, unspecified severity, without behavioral disturbance, psychotic disturbance, mood disturbance, and anxiety; Z79.899 Other long term (current) drug therapy; I10 Essential (primary) hypertension; I25.10 Atherosclerotic heart disease of native coronary artery without angina pectoris; E11.42 Type 2 diabetes mellitus with diabetic polyneuropathy; W19.XXXA Unspecified fall, initial encounter; Z96.651 Presence of right artificial knee joint; S01.411A Laceration without foreign body of right cheek and temporomandibular area, initial encounter; Z88.8 Allergy status to other drugs, medicaments and biological substances

== ENCOUNTER 2024-01-17 19:41 | Inpatient (IN) ==
[2024-01-17] MEDS: SODIUM CHLORIDE 0.9% 1,000 ML IV ONE (20:04)
[2024-01-17 20:20] LABS: Basophils # (auto) 0.04 K/uL (0.00-0.20); Basophils % (auto) 0.6 %; Eosinophils # (auto) 0.09 K/uL (0.00-0.50); Eosinophils % (auto) 1.2 %; Hematocrit (blood only) 37.1 % (42.0-52.0); Hemoglobin 12.5 g/dl (14.0-18.0); Immature Granulocytes # (auto) 0.02 K/uL (0.01-0.20); Immature Granulocytes % (auto) 0.3 %; Lymphocytes # (auto) 0.65 K/uL (1.20-3.40); Mean Corpuscular Hemoglobin 31.4 pg (25.0-34.0); Mean Corpuscular Hgb Conc 33.7 g/dL (32.0-36.0); Mean Corpuscular Volume 93.2 fL (80.0-100.0); Mean Platelet Volume 10.2 fL (9.4-12.4); Monocytes # (auto) 0.55 K/uL (0.11-0.59); Monocytes % (auto) 7.6 %; Neutrophils # (auto) 5.86 K/uL (1.40-6.50); Neutrophils % (auto) 81.3 %; Platelet Count 110 K/uL (130-400); RDW Standard Deviation 41.9 fL (36.4-46.3); Red Blood Count 3.98 M/uL (4.70-6.10); White Blood Count 7.21 K/ul (4.8-10.8)
[2024-01-17 20:41] LABS: Alanine Aminotransferase 14 U/L (7-52); Albumin Globulin Ratio 1.6 (0.9-2); Albumin Level 4.6 gm/dl (3.4-5.0); Alkaline Phosphatase 81 U/L (34-104); Anion Gap 9 (3-11); Aspartate Aminotransferase 18 U/L (13-39); BUN Creatinine Ratio 18.9 (10-20); Bilirubin Direct 0.1 mg/dl (0-0.2); Bilirubin,Total 0.5 mg/dl (0.2-1.0); Blood Urea Nitrogen 23 mg/dl (6-23); Carbon Dioxide 28 mmol/L (21-32); Chloride 102 mmol/L (98-107); Est GFR (African American) 65.9 ml/min; Est GFR (Non-African American) 56.8 ml/min; Globulin 2.9 gm/dl (2.5-4.0); Glucose 133 mg/dl (70-99(Fasting)); Lipase 75 U/L (11-82); Magnesium 1.4 mg/dl (1.7-2.4); Phosphorus 2.3 mg/dl (2.5-4.9); Potassium 4.3 mmol/L (3.5-5.1); Sodium 139 mmol/L (136-145); Total Protein 7.5 gm/dl (6.0-8.3)
[2024-01-17 20:45] LABS: Prothrombin Time 11.3 Seconds (9.0-12.0)
[2024-01-17 20:48] LABS: Troponin I High Sensitivity 8.4 pg/ml (0-20)
[2024-01-17 20:57] LABS: Thyroid Stimulating Hormone 3.455 uIu/ml (0.300-4.500)
[2024-01-17] MEDS: OPTIRAY 320 125ml IV ONE (21:26)
--- NOTE | 2024-01-17 21:54 | Emergency Department Note ---
Impression & Plan Generalized weakness, Recurrent falls, Ambulatory dysfunction, Hypomagnesemia ED Provider Note HISTORY OF PRESENT ILLNESS: Patient is a 78-year-old male presenting with weakness. Patient's provides most of history, given patient's dementia. Reports that the patient has had progressively worsening weakness over the last few months. Reports it has been significantly worse over the last 48 to 72 hours. States that last night the patient was too weak to make it to bed and had to be lowered to the ground. He reportedly has been having more falls over the last few weeks. Patient normally walks with a walking stick but has been too weak to do so. No reported fevers. No reported head injury or chiropractic manipulation of his neck. He is not on any anticoagulation. reports the patient has not been eating or drinking much and they are concerned he is dehydrated. Patient denies any abdominal pain, chest pain or shortness of breath. Denies any dysuria or hematuria ROS: as above PHYSICAL EXAM: Constitutional: Patient appears in no acute distress. HENT: Head: Normocephalic and atraumatic. Eyes: EOMI, PERRL Mouth/Throat: Mucous membranes moist. Neck: Trachea midline. Neck supple. Cardiovascular: RRR, No murmurs, rubs or gallops. Intact distal pulses. Pulmonary/Chest: No respiratory distress. Breath sounds clear and equal bilaterally. No wheezes or rales. Abdominal: Abdomen soft, no tenderness, rebound or guarding. Musculoskeletal: No edema, tenderness or deformity noted. Skin: Warm and dry. No rash, erythema, pallor or cyanosis Psychiatric: Appropriate mood and affect for situation. Neurological: Alert and keenly responsive. Facies symmetric. Able to raise eyebrows, close eyes, smile, puff mouth, stick out tongue, move tongue left and right and raise palate symmetrically. Able to shrug shoulders. PERRLA. SILT to forehead below eye and at jawline. Can hear soft noise bilaterally. Strength 5/5 in bilateral upper and lower extremities. SILT throughout bilateral upper and lower extremities. MDM: - Vitals signs showed the hypertension - History obtained via patient's , given patient's dementia. History as above. - Chronic conditions affecting care: CAD; HTN; HLD; DM-2; dementia - Differential diagnoses include, but are not limited to: pneumonia; UTI; intracranial hemorrhage; CVA; electrolyte abnormality; dehydration; ACS - Order placed for continuous cardiac monitoring. At this time, monitor showed rate of 70 bpm with normal sinus rhythm, per my interpretation. - External medical records reviewed. Primary care visit note dated 11/10/2023. Patient follows in their clinic for dementia. He is currently on benazepril 10 mg daily. - EKG interpreted by myself showed normal sinus rhythm. Rate 88 bpm. QT 376. No acute ischemic changes. - Laboratory workup interpreted by myself showed normal WBC; normal PT/INR; stable electrolytes other than hypomagnesemia and hypophosphatemia (phos 2.3); normal troponin; normal lipase; normal TSH - Viral respiratory panel positive for rhinovirus/enterovirus infection - CXR negative for pneumonia, per my interpretation - CT head wo contrast negative for acute pathology - CTA head showed mild calcified plaque with 20% stenosis of the distal internal carotid arteries bilaterally. - CTA neck showed calcified plaque in the proximal left internal carotid artery causing 40% stenosis - Patient given 1L NS in ER and 2g IV magnesium. - Discussed results with family and patient at bedside. They expressed concern about patient's ability to get around at home. They were agreeable to admission for PT/OT assessment and potential placement for rehab. - Discussion was had with case management coordinator about patient's case and need for admission - Hospitalist consulted for admission - Patient admitted to [facility] for further evaluation and management. ASSESSMENT AND PLAN: Diagnosis: Generalized weakness; ambulatory dysfunction; hypomagnesemia; recurrent falls Plan: admit Past Med/Surg History Problem List (Updated 01/18/24 @ 00:09 by Fatemeh Mcleod MD) Hypomagnesemia (Acute) Ambulatory dysfunction (Acute) Recurrent falls (Acute) Generalized weakness (Acute) Behavioral and psychological symptoms of dementia Thrombocytopenia (Chronic) Hypertension (Chronic) Hyperlipemia Confusion Hypercholesteremia (Chronic) Diabetes type 2, controlled (Chronic) Dementia (Chronic) CAD in mcgr[place] artery (Acute) Carpal tunnel syndrome (Acute 09/23/12) Claudication (Acute) Frequent falls (Acute) Gait disturbance (Acute) Leg length discrepancy (Acute) Male erectile disorder of organic origin (Acute) Mild cognitive impairment (Acute) Peripheral neuropathy (Chronic) 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) Fall (Acute) Confusion (Acute) Contusion of face (Acute) Facial laceration (Acute) Bee sting Bradycardia Medical History (Updated 01/18/24 @ 00:09 by Fatemeh Mcleod MD) Hypokalemia Influenza B Surgical History History of back surgery Status post total right knee replacement Family History Mother Coronary heart disease Diabetes Parkinson disease Myocardial infarction Father Coronary heart disease Myocardial infarction Denies family history of Ovarian cancer Prostate cancer Breast cancer Colorectal cancer Social History Smoking Status: Never smoker Second Hand Exposure: No; Do You Dip or Chew Tobacco: No; Hx Alcohol Use: No Hx Substance Use: No Preferred Language: Uzbek Communication Ability: Impaired Visual Impairment: No Limitations Hearing Ability: Normal [place] Required: No Beliefs That Will Affect Care: None marital status: Current Living Situation: Spouse current occupational status: retired 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 [employer] Feels Safe at Home: Yes Childhood Exposure to Second-Hand Smoke: Yes Diet: low carbohydrate and regular caffeine: Yes Dental Care, Regularly: Yes Physical Activity Frequency: Does not Exercise Seatbelt Use: always Sunscreen Use: Yes Assistive Devices: None Allergies Allergies Allergy/AdvReac Type Severity Reaction Status Date / Time pregabalin Allergy Unknown disorientat Verified 12/08/23 12:32 ion Home Meds Home Medications Medication Instructions Recorded Confirmed aspirin 81 mg tablet,delayed 81 mg PO DAILY 10/08/18 12/08/23 release (Aspir-) cyanocobalamin (vitamin B-12) 1,000 mcg PO DAILY 07/12/19 12/08/23 1,000 mcg tablet (Vitamin B-12) Previous Rx's Medication Instructions Recorded atorvastatin 40 mg tablet 40 mg PO DAILY #90 tabs 05/28/23 memantine 10 mg tablet 10 mg PO BID #180 tabs 07/22/23 hydrochlorothiazide 25 mg tablet 25 mg PO DAILY #90 tabs 08/19/23 metformin 1,000 mg tablet 1,000 mg PO BID #180 tabs 08/19/23 donepezil 10 mg tablet 10 mg PO DAILY #90 tabs 11/18/23 sertraline 100 mg tablet 100 mg PO DAILY 90 days #90 tabs 11/26/23 lisinopril 20 mg tablet 20 mg PO BID #60 tabs 12/31/23 lisinopril 20 mg tablet (Zestril) 20 mg PO BID #180 tabs 12/31/23 Results & Data (ED) Vital Signs Vital Signs - 24 hr 01/17/24 19:46 01/17/24 19:59 01/17/24 20:00 Temperature 36.7 C Temperature Source Temporal Artery Scan Pulse Rate 103 H 88 Pulse Rate [Apical] 87 Pulse Rate from SpO2 Sensor Pulse Rhythm Regular Pulse Rhythm [Apical] Regular Pulse Strength [Apical] Normal Respiratory Rate 20 20 19 Respiratory Effort / Characteristics Non-Labored Non-Labored Spontaneous Respiratory Depth Normal Normal Respiratory Pattern Regular Blood Pressure 124/75 Blood Pressure [Left Arm] 139/71 Blood Pressure Mean 91 Blood Pressure Mean [Left Arm] 93 Pulse Oximetry 95 97 97 Oxygen Delivery Method Room Air Room Air Room Air Sepsis Recent Fever Within 48 Hours No Sepsis New/Unexplained Change in Mental Status No Sepsis Action Taken by Nursing No Action Required 01/17/24 20:03 01/17/24 20:06 01/17/24 20:21 Temperature Temperature Source Pulse Rate 89 86 109 H Pulse Rate [Apical] Pulse Rate from SpO2 Sensor 85 77 Pulse Rhythm Pulse Rhythm [Apical] Pulse Strength [Apical] Respiratory Rate 17 15 Respiratory Effort / Characteristics Respiratory Depth Respiratory Pattern Blood Pressure Blood Pressure [Left Arm] Blood Pressure Mean Blood Pressure Mean [Left Arm] Pulse Oximetry 97 97 Oxygen Delivery Method Sepsis Recent Fever Within 48 Hours Sepsis New/Unexplained Change in Mental Status Sepsis Action Taken by Nursing 01/17/24 20:36 01/17/24 20:42 01/17/24 20:47 Temperature Temperature Source Pulse Rate 71 72 75 Pulse Rate [Apical] Pulse Rate from SpO2 Sensor 71 69 Pulse Rhythm Regular Pulse Rhythm [Apical] Pulse Strength [Apical] Respiratory Rate 15 13 18 Respiratory Effort / Characteristics Respiratory Depth Respiratory Pattern Blood Pressure 132/67 Blood Pressure [Left Arm] Blood Pressure Mean 88 Blood Pressure Mean [Left Arm] Pulse Oximetry 98 99 97 Oxygen Delivery Method Room Air Sepsis Recent Fever Within 48 Hours Sepsis New/Unexplained Change in Mental Status Sepsis Action Taken by Nursing 01/17/24 20:54 01/17/24 21:36 01/17/24 21:36 Temperature Temperature Source Pulse Rate 70 71 Pulse Rate [Apical] Pulse Rate from SpO2 Sensor 71 75 Pulse Rhythm Pulse Rhythm [Apical] Pulse Strength [Apical] Respiratory Rate 18 10 L Respiratory Effort / Characteristics Respiratory Depth Respiratory Pattern Blood Pressure 143/69 H 145/78 H Blood Pressure [Left Arm] Blood Pressure Mean 93 98 Blood Pressure Mean [Left Arm] Pulse Oximetry 98 99 Oxygen Delivery Method Sepsis Recent Fever Within 48 Hours Sepsis New/Unexplained Change in Mental Status Sepsis Action Taken by Nursing 01/17/24 21:42 01/17/24 21:48 01/17/24 22:00 Temperature Temperature Source Pulse Rate 67 67 Pulse Rate [Apical] 69 Pulse Rate from SpO2 Sensor Pulse Rhythm Pulse Rhythm [Apical] Pulse Strength [Apical] Respiratory Rate 20 9 L 11 L Respiratory Effort / Characteristics Non-Labored Spontaneous Respiratory Depth Normal Respiratory Pattern Regular Blood Pressure Blood Pressure [Left Arm] 132/72 Blood Pressure Mean Blood Pressure Mean [Left Arm] 92 Pulse Oximetry 98 Oxygen Delivery Method Room Air Sepsis Recent Fever Within 48 Hours Sepsis New/Unexplained Change in Mental Status Sepsis Action Taken by Nursing 01/17/24 22:00 01/17/24 22:15 01/17/24 22:15 Temperature Temperature Source Pulse Rate 67 Pulse Rate [Apical] Pulse Rate from SpO2 Sensor Pulse Rhythm Pulse Rhythm [Apical] Pulse Strength [Apical] Respiratory Rate 13 Respiratory Effort / Characteristics Respiratory Depth Respiratory Pattern Blood Pressure 109/51 L 118/72 Blood Pressure [Left Arm] Blood Pressure Mean 77 86 Blood Pressure Mean [Left Arm] Pulse Oximetry Oxygen Delivery Method Sepsis Recent Fever Within 48 Hours Sepsis New/Unexplained Change in Mental Status Sepsis Action Taken by Nursing 01/17/24 22:27 01/17/24 22:45 01/17/24 23:15 Temperature Temperature Source Pulse Rate 65 62 Pulse Rate [Apical] Pulse Rate from SpO2 Sensor 61 Pulse Rhythm Pulse Rhythm [Apical] Pulse Strength [Apical] Respiratory Rate 18 13 Respiratory Effort / Characteristics Respiratory Depth Respiratory Pattern Blood Pressure 121/60 128/65 Blood Pressure [Left Arm] Blood Pressure Mean 80 91 Blood Pressure Mean [Left Arm] Pulse Oximetry 98 98 Oxygen Delivery Method Room Air Sepsis Recent Fever Within 48 Hours Sepsis New/Unexplained Change in Mental Status Sepsis Action Taken by Nursing 01/17/24 23:30 01/18/24 00:07 Temperature Temperature Source Pulse Rate 67 62 Pulse Rate [Apical] Pulse Rate from SpO2 Sensor 62 Pulse Rhythm Pulse Rhythm [Apical] Pulse Strength [Apical] Respiratory Rate 13 Respiratory Effort / Characteristics Respiratory Depth Respiratory Pattern Blood Pressure 126/67 Blood Pressure [Left Arm] Blood Pressure Mean 76 Blood Pressure Mean [Left Arm] Pulse Oximetry 98 Oxygen Delivery Method Room Air Sepsis Recent Fever Within 48 Hours Sepsis New/Unexplained Change in Mental Status Sepsis Action Taken by Nursing Laboratory Data 01/17/24 20:00 01/17/24 20:00 Lab Results 01/17/24 01/17/24 01/17/24 Range/Units 19:57 20:00 22:25 WBC 7.21 (4.8-10.8) K/ul RBC 3.98 L (4.70-6.10) M/uL Hgb 12.5 L (14.0-18.0) g/dl Hct 37.1 L (42.0-52.0) % MCV 93.2 (80.0-100.0) fL MCH 31.4 (25.0-34.0) pg MCHC 33.7 (32.0-36.0) g/dL RDW Std Deviation 41.9 (36.4-46.3) fL RDW Coeff of Sola 12.0 (11.5-14.5) % Plt Count 110 L (130-400) K/uL MPV 10.2 (9.4-12.4) fL Immature Gran % (Auto) 0.3 % Neut % (Auto) 81.3 % Lymph % (Auto) 9.0 % [place] % (Auto) 7.6 % Eos % (Auto) 1.2 % Baso % (Auto) 0.6 % Neut # (Auto) 5.86 (1.40-6.50) K/uL Lymph # (Auto) 0.65 L (1.20-3.40) K/uL Clinton # (Auto) 0.55 (0.11-0.59) K/uL Eos # (Auto) 0.09 (0.00-0.50) K/uL Baso # (Auto) 0.04 (0.00-0.20) K/uL Immature Gran # (Auto) 0.02 (0.01-0.20) K/uL PT 11.3 (9.0-12.0) Seconds INR 1.0 (0.9-1.1) Sodium 139 (136-145) mmol/L Potassium 4.3 (3.5-5.1) mmol/L Chloride 102 (98-107) mmol/L Carbon Dioxide 28 (21-32) mmol/L Anion Gap 9 (3-11) BUN 23 (6-23) mg/dl Creatinine 1.22 (0.6-1.4) mg/dl Est Cr Clr Drug Dosing Not Reportable Est GFR ( Amer) 65.9 ml/min Est GFR (Non-Af Amer) 56.8 ml/min BUN/Creatinine Ratio 18.9 (10-20) Glucose 133 H (70-99(Fasting)) mg/dl POC Glucose 125 H (70-99) mg/dl Calcium 10.0 (8.6-10.3) mg/dl Phosphorus 2.3 L (2.5-4.9) mg/dl Magnesium 1.4 L (1.7-2.4) mg/dl Total Bilirubin 0.5 (0.2-1.0) mg/dl Direct Bilirubin 0.1 (0-0.2) mg/dl AST 18 (13-39) U/L ALT 14 (7-52) U/L Alkaline Phosphatase 81 (34-104) U/L Troponin I High Sens 8.4 (0-20) pg/ml Total Protein 7.5 (6.0-8.3) gm/dl Albumin 4.6 (3.4-5.0) gm/dl Globulin 2.9 (2.5-4.0) gm/dl Albumin/Globulin Ratio 1.6 (0.9-2) Lipase 75 (11-82) U/L TSH 3.455 (0.300-4.500) uIu/ml Adenovirus (PCR) Not Detected (NotDetected) B. pertussis DNA (PCR) Not Detected (NotDetected) B.parapertussis DNA PCR Not Detected (NotDetected) C. pneumoniae DNA (PCR) Not Detected (NotDetected) Coronavirus OC43 (PCR) Not Detected (NotDetected) Coronavirus HKU1 (PCR) Not Detected (NotDetected) Coronavirus 229E (PCR) Not Detected (NotDetected) SARS-CoV-2 (PCR) Not Detected (NotDetected) Coronavirus NL63 (PCR) Not Detected (NotDetected) Human Metapneumovir PCR Not Detected (NotDetected) Influenza Type A (PCR) Not Detected (NotDetected) Influenza Type B (PCR) Not Detected (NotDetected) M. pneumoniae (PCR) Not Detected (NotDetected) Parainfluenza 1 (PCR) Not Detected (NotDetected) Parainfluenza 2 (PCR) Not Detected (NotDetected) Parainfluenza 3 (PCR) Not Detected (NotDetected) Parainfluenza 4 (PCR) Not Detected (NotDetected) RSV (PCR) Not Detected (NotDetected) Entero/Rhino (PCR) DETECTED A (NotDetected) Administered Medications Discontinued Medications Sodium Chloride (Nss) 1,000 mls @ 999 mls/hr IV .Q1H1M ONE Stop: 01/17/24 21:01 Last Infusion: 01/17/24 21:07 Dose: Infused Documented By: Admin: 01/17/24 20:04 Dose: 999 mls/hr Documented By: DYLAN Ioversol (Optiray 320 125ml) 120 ml IV ONCE ONE Stop: 01/17/24 21:27 Last Admin: 01/17/24 21:26 Dose: 120 ml Documented By: EDK Imaging Data Radiologist's Impression: Head CT 01/17/24 19:59 Exam(s): CT HEAD Without Contrast EXAM: CT Head Without Intravenous Contrast CLINICAL HISTORY: Reason for exam: weakness, dementia. TECHNIQUE: Axial computed tomography images of the head/brain without intravenous contrast. CTDI is 38.49 mGy and DLP is 624.41 mGy-cm. Automated exposure control was utilized for the study. A dose lowering technique was utilized adhering to the principles of ALARA. COMPARISON: March 01, 2020 FINDINGS: Brain: Mild cerebral atrophy and periventricular white matter low density consistent with chronic small vessel disease and/or senescent changes, unchanged. No acute large vessel infarct or intracranial hemorrhage is seen. Ventricles: Mildly prominent. No mass or hemorrhage. Bones/joints: Unremarkable. No acute fracture. Soft tissues: Unremarkable. Sinuses: Unremarkable as visualized. No acute sinusitis. Mastoid air cells: Unremarkable as visualized. No mastoid effusion. IMPRESSION: Mild cerebral atrophy and periventricular white matter low density consistent with chronic small vessel disease and/or senescent changes, unchanged. No acute large vessel infarct or intracranial hemorrhage is seen. Electronically signed by: Denilson Rushing MD 01/17/24 22:31 PM Head CTA 01/17/24 19:59 Exam(s): CTA HEAD With Contrast IV Amt: OPTIRAY 320 120ML EXAM: CT Angiography Head With Intravenous Contrast CLINICAL HISTORY: Reason for exam: weakness, dementia. TECHNIQUE: Axial computed tomographic angiography images of the head with intravenous contrast. CTDI is 13.04 mGy and DLP is 476.37 mGy-cm. Automated exposure control was utilized for the study. A dose lowering technique was utilized adhering to the principles of ALARA. MIP reconstructed images were created and reviewed. CONTRAST: Patient received OPTIRAY 320 120ML of IV contrast COMPARISON: No relevant prior studies available. FINDINGS: Right internal carotid artery: Calcified plaque in the distal right internal carotid artery with less than 20% stenosis. No aneurysm. Right anterior cerebral artery: Unremarkable. No occlusion or significant stenosis. No aneurysm. Right middle cerebral artery: Unremarkable. No occlusion or significant stenosis. No aneurysm. Right posterior cerebral artery: Unremarkable. No occlusion or significant stenosis. No aneurysm. Right vertebral artery: Unremarkable as visualized. Left internal carotid artery: Calcified plaque in the distal left internal carotid artery with less than 20% stenosis. No aneurysm. Left anterior cerebral artery: Unremarkable. No occlusion or significant stenosis. No aneurysm. Left middle cerebral artery: Unremarkable. No occlusion or significant stenosis. No aneurysm. Left posterior cerebral artery: The left posterior cerebral artery demonstrates a normal variant of origin from the anterior circulation. No occlusion or significant stenosis. No aneurysm. Left vertebral artery: The distal left vertebral artery is small and terminates into the PICA. This is a normal variant. Basilar artery: Unremarkable. No occlusion or significant stenosis. No aneurysm. IMPRESSION: Mild calcified plaque with up to 20% stenosis in the distal internal carotid arteries bilaterally. No aneurysm, vascular malformation, or acute large vessel occlusion is identified. Electronically signed by: Denilson Rushing MD 01/17/24 22:43 PM Neck CTA 01/17/24 19:59 Exam(s): CTA NECK With Contrast IV Amt: OPTIRAY 320 120ML EXAM: CT Angiography Neck With Intravenous Contrast CLINICAL HISTORY: Reason for exam: weakness, dementia. TECHNIQUE: Routine carotid CT angiography protocol was performed with intravenous contrast. NASCET criteria using the distal ICAs for comparison were used for evaluation of stenoses. CTDI is 13.04 mGy and DLP is 476.37 mGy-cm. Automated exposure control was utilized for the study. A dose lowering technique was utilized adhering to the principles of ALARA. MIP reconstructed images were created and reviewed. CONTRAST: Patient received OPTIRAY 320 120ML of IV contrast COMPARISON: None. FINDINGS: VASCULATURE: Right common carotid artery: Calcified plaque in the right common carotid artery with less than 20% stenosis. No dissection. Right internal carotid artery: Calcified plaque in the right internal carotid artery with 20% stenosis. The distal right internal carotid artery is tortuous but widely patent. No dissection. Right external carotid artery: Unremarkable. No occlusion. Right vertebral artery: Unremarkable. No occlusion or significant stenosis. No dissection. Left common carotid artery: Unremarkable. No occlusion or significant stenosis. No dissection. Left internal carotid artery: Heavily calcified plaque in the proximal left internal carotid artery causes 40% stenosis. No dissection. Left external carotid artery: Unremarkable. No occlusion. Left vertebral artery: The left vertebral artery is smaller than the right and terminates into the PICA. This is a normal variant. No occlusion or significant stenosis. No dissection. Aorta: The aortic arch is mildly calcified but nondilated. There is no aneurysm or dissection. NECK: Bones/joints: Unremarkable. Normal anatomic variant of incomplete fusion of the posterior arch of C1. There are mild degenerative changes throughout the cervical spine. No acute fracture or subluxation is seen. Soft tissues: Unremarkable. Lung apices: Clear. CAROTID STENOSIS REFERENCE USING NASCET CRITERIA: % ICA stenosis = (1 - narrowest ICA diameter/diameter of distal cervical ICA) x 100. Mild - <50% stenosis. Moderate - 50-69% stenosis. Severe - 70-94% stenosis. Near occlusion - 95-99% stenosis. Occluded - 100% stenosis. IMPRESSION: Heavily calcified plaque in the proximal left internal carotid artery causes 40% stenosis. No significant flow-limiting stenosis or dissection is seen in the arterial structures of the neck. Electronically signed by: Denilson Rushing MD 01/17/24 22:36 PM Discharge Plan Visit Data Chief Complaint: Illness Stated Complaint: CONGESTION, UNABLE TO WALK, DEHYDRATION ED Provider: Fatemeh Mcleod Discharge Problem: Generalized weakness, Recurrent falls, Ambulatory dysfunction, Hypomagnesemia Forms Stand Alone Forms: [facility] [employer] Prescriptions Prescriptions: No Action hydrochlorothiazide 25 mg tablet 25 mg PO DAILY Qty: 90 3RF metformin 1,000 mg tablet 1,000 mg PO BID Qty: 180 3RF donepezil 10 mg tablet 10 mg PO DAILY Qty: 90 3RF sertraline 100 mg tablet 100 mg PO DAILY 90 Days Qty: 90 1RF lisinopril [Zestril] 20 mg tablet 20 mg PO BID Qty: 180 3RF lisinopril 20 mg tablet 20 mg PO BID Qty: 60 0RF memantine 10 mg tablet 10 mg PO BID Qty: 180 3RF atorvastatin 40 mg tablet 40 mg PO DAILY Qty: 90 3RF aspirin [Aspir-81] 81 mg Tablet,Delayed Release (Dr/Ec) 81 mg PO DAILY cyanocobalamin (vitamin B-12) [Vitamin B-12] 1,000 mcg tablet 1,000 mcg PO DAILY Referrals Referrals: Jm Hendricks DO [Primary Care Provider] -
--- NOTE | 2024-01-17 22:32 | CT Scan Report ---
Exam(s): CT HEAD Without Contrast EXAM: CT Head Without Intravenous Contrast CLINICAL HISTORY: Reason for exam: weakness, dementia. TECHNIQUE: Axial computed tomography images of the head/brain without intravenous contrast. CTDI is 38.49 mGy and DLP is 624.41 mGy-cm. Automated exposure control was utilized for the study. A dose lowering technique was utilized adhering to the principles of ALARA. COMPARISON: March 01, 2020 FINDINGS: Brain: Mild cerebral atrophy and periventricular white matter low density consistent with chronic small vessel disease and/or senescent changes, unchanged. No acute large vessel infarct or intracranial hemorrhage is seen. Ventricles: Mildly prominent. No mass or hemorrhage. Bones/joints: Unremarkable. No acute fracture. Soft tissues: Unremarkable. Sinuses: Unremarkable as visualized. No acute sinusitis. Mastoid air cells: Unremarkable as visualized. No mastoid effusion. IMPRESSION: Mild cerebral atrophy and periventricular white matter low density consistent with chronic small vessel disease and/or senescent changes, unchanged. No acute large vessel infarct or intracranial hemorrhage is seen. Electronically signed by: Denilson Rushing MD 01/17/24 22:31 PM
--- NOTE | 2024-01-17 22:37 | CT Scan Report ---
Exam(s): CTA NECK With Contrast IV Amt: OPTIRAY 320 120ML EXAM: CT Angiography Neck With Intravenous Contrast CLINICAL HISTORY: Reason for exam: weakness, dementia. TECHNIQUE: Routine carotid CT angiography protocol was performed with intravenous contrast. NASCET criteria using the distal ICAs for comparison were used for evaluation of stenoses. CTDI is 13.04 mGy and DLP is 476.37 mGy-cm. Automated exposure control was utilized for the study. A dose lowering technique was utilized adhering to the principles of ALARA. MIP reconstructed images were created and reviewed. CONTRAST: Patient received OPTIRAY 320 120ML of IV contrast COMPARISON: None. FINDINGS: VASCULATURE: Right common carotid artery: Calcified plaque in the right common carotid artery with less than 20% stenosis. No dissection. Right internal carotid artery: Calcified plaque in the right internal carotid artery with 20% stenosis. The distal right internal carotid artery is tortuous but widely patent. No dissection. Right external carotid artery: Unremarkable. No occlusion. Right vertebral artery: Unremarkable. No occlusion or significant stenosis. No dissection. Left common carotid artery: Unremarkable. No occlusion or significant stenosis. No dissection. Left internal carotid artery: Heavily calcified plaque in the proximal left internal carotid artery causes 40% stenosis. No dissection. Left external carotid artery: Unremarkable. No occlusion. Left vertebral artery: The left vertebral artery is smaller than the right and terminates into the PICA. This is a normal variant. No occlusion or significant stenosis. No dissection. Aorta: The aortic arch is mildly calcified but nondilated. There is no aneurysm or dissection. NECK: Bones/joints: Unremarkable. Normal anatomic variant of incomplete fusion of the posterior arch of C1. There are mild degenerative changes throughout the cervical spine. No acute fracture or subluxation is seen. Soft tissues: Unremarkable. Lung apices: Clear. CAROTID STENOSIS REFERENCE USING NASCET CRITERIA: % ICA stenosis = (1 - narrowest ICA diameter/diameter of distal cervical ICA) x 100. Mild - <50% stenosis. Moderate - 50-69% stenosis. Severe - 70-94% stenosis. Near occlusion - 95-99% stenosis. Occluded - 100% stenosis. IMPRESSION: Heavily calcified plaque in the proximal left internal carotid artery causes 40% stenosis. No significant flow-limiting stenosis or dissection is seen in the arterial structures of the neck. Electronically signed by: Denilson Rushing MD 01/17/24 22:36 PM
--- NOTE | 2024-01-17 22:43 | CT Scan Report ---
Exam(s): CTA HEAD With Contrast IV Amt: OPTIRAY 320 120ML EXAM: CT Angiography Head With Intravenous Contrast CLINICAL HISTORY: Reason for exam: weakness, dementia. TECHNIQUE: Axial computed tomographic angiography images of the head with intravenous contrast. CTDI is 13.04 mGy and DLP is 476.37 mGy-cm. Automated exposure control was utilized for the study. A dose lowering technique was utilized adhering to the principles of ALARA. MIP reconstructed images were created and reviewed. CONTRAST: Patient received OPTIRAY 320 120ML of IV contrast COMPARISON: No relevant prior studies available. FINDINGS: Right internal carotid artery: Calcified plaque in the distal right internal carotid artery with less than 20% stenosis. No aneurysm. Right anterior cerebral artery: Unremarkable. No occlusion or significant stenosis. No aneurysm. Right middle cerebral artery: Unremarkable. No occlusion or significant stenosis. No aneurysm. Right posterior cerebral artery: Unremarkable. No occlusion or significant stenosis. No aneurysm. Right vertebral artery: Unremarkable as visualized. Left internal carotid artery: Calcified plaque in the distal left internal carotid artery with less than 20% stenosis. No aneurysm. Left anterior cerebral artery: Unremarkable. No occlusion or significant stenosis. No aneurysm. Left middle cerebral artery: Unremarkable. No occlusion or significant stenosis. No aneurysm. Left posterior cerebral artery: The left posterior cerebral artery demonstrates a normal variant of origin from the anterior circulation. No occlusion or significant stenosis. No aneurysm. Left vertebral artery: The distal left vertebral artery is small and terminates into the PICA. This is a normal variant. Basilar artery: Unremarkable. No occlusion or significant stenosis. No aneurysm. IMPRESSION: Mild calcified plaque with up to 20% stenosis in the distal internal carotid arteries bilaterally. No aneurysm, vascular malformation, or acute large vessel occlusion is identified. Electronically signed by: Denilson Rushing MD 01/17/24 22:43 PM
[2024-01-17 23:23] LABS: Adenovirus PCR Not Detected (NotDetected); Bordetella parapertussis PCR Not Detected (NotDetected); Bordetella pertussis PCR Not Detected (NotDetected); Chlamydia pneumoniae PCR Not Detected (NotDetected); Coronavirus 229E PCR Not Detected (NotDetected); Coronavirus CoV-2 (COVID19)PCR Not Detected (NotDetected); Coronavirus HKU1 PCR Not Detected (NotDetected); Coronavirus NL63 PCR Not Detected (NotDetected); Coronavirus OC43PCR Not Detected (NotDetected); Human Metapneumovirus PCR Not Detected (NotDetected); Influenza A PCR Not Detected (NotDetected); Influenza B PCR Not Detected (NotDetected); Mycoplasma pneumoniae PCR Not Detected (NotDetected); Parainfluenza Virus 1 PCR Not Detected (NotDetected); Parainfluenza Virus 2 PCR Not Detected (NotDetected); Parainfluenza Virus 3 PCR Not Detected (NotDetected); Parainfluenza Virus 4 PCR Not Detected (NotDetected); Respiratory Syncytial VirusPCR Not Detected (NotDetected); Rhinovirus/Enterovirus PCR DETECTED (NotDetected)
[2024-01-18] MEDS: MAGNESIUM SULFATE / D5W 1 GM/100 ML BAG IV SCH (00:38)
--- NOTE | 2024-01-18 01:10 | History & Physical Report ---
Date of Service January 18, 2024 Assessment & Plan (1) Hypomagnesemia: (2) Recurrent falls: (3) Ambulatory dysfunction: (4) Behavioral and psychological symptoms of dementia: (5) Diabetes type 2, controlled: (6) Generalized weakness: (7) Hypertension: (8) Thrombocytopenia: (9) Hyperlipemia: (10) CAD in [place] artery: Plan Progressive generalized weakness/increasing frequency of falls/ambulatory dysfunction- Multifactorial including but not limited to: Progressive dementia, muscle atrophy, medication related, hypomagnesemia cerebrovascular disease, decreased oral intake and weight loss. Patient will need PT/OT assessment prior to discharge, and is aware that he would likely benefit from inpatient rehab TIA/CVA workup: CT head shows chronic small vessel disease. CTA head showed 20% distal ICA stenoses bilaterally. CTA neck shows 40% proximal left ICA narrowing Progressive dementia with behavioral and psychological symptoms/depression/dementia/confusion- Continue donepezil, memantine, sertraline Zyprexa 5 mg IM every 4 hours as needed for agitation Patient's will stay with him to try to minimize Hypomagnesemia/dehydration/CKD- Received 1 L normal saline bolus from the ED. Given additional 80 mL/h of NSS x 1 L Magnesium 1.4 Give magnesium sulfate 2 g IV, and recheck laboratories in a.m. Patient overall appears relatively dehydrated, and reportedly had his HCTZ decreased from daily to every other day by Dr. Schulte on December 07 The was told not to have him resume hydrochlorothiazide until Dr. Schulte gives the okay Enterovirus/rhinovirus infection- Pulse ox is 100% on room air [employer] testing was done on a routine basis, and does not appear to be symptomatic Weight loss- Patient has had a 13 pound weight loss since early December, despite having his hydrochlorothiazide dose cut in half CODE STATUS: DNR/DNI History of Present Illness Chief Complaint: The patient was at the emergency department due to 's concerns regarding progressive generalized weakness, ambulatory dysfunction, increased frequency of falls, decreased oral intake for both liquids and solids, and a 13 pound weight gain over the past 5 to 6 weeks. Primary Care Provider: Jm Hendricks DO The patient is a 78-year-old male with a past medical history including significant dementia with behavioral and psychological symptoms, hypertension, hyperlipidemia, hypercholesterolemia, diabetes mellitus type 2, CAD, peripheral neuropathy and confusion. The patient presents to the emergency department with symptoms above, and what appears to be failure to thrive. The patient's wishes to stay with the patient in the hospital, as she is concerned that he will become aggressive, and he did begin to develop some aggression while in the emergency department. Allergies Allergy/AdvReac Type Severity Reaction Status Date / Time pregabalin Allergy Unknown disorientat Verified 12/08/23 12:32 ion Home Medications Medication Instructions Recorded Confirmed Type cyanocobalamin (vitamin B-12) 1,000 mcg PO DAILY 07/12/19 01/18/24 History 1,000 mcg tablet (Vitamin B-12) atorvastatin 40 mg tablet 40 mg PO DAILY #90 tabs 05/28/23 01/18/24 Rx memantine 10 mg tablet 10 mg PO BID #180 tabs 07/22/23 01/18/24 Rx hydrochlorothiazide 25 mg tablet 25 mg PO DAILY #90 tabs 08/19/23 01/18/24 Rx metformin 1,000 mg tablet 1,000 mg PO BID #180 tabs 08/19/23 01/18/24 Rx donepezil 10 mg tablet 10 mg PO DAILY #90 tabs 11/18/23 01/18/24 Rx sertraline 100 mg tablet 100 mg PO DAILY 90 days #90 tabs 11/26/23 01/18/24 Rx lisinopril 20 mg tablet (Zestril) 20 mg PO BID #180 tabs 12/31/23 01/18/24 Rx aspirin 81 mg tablet,delayed 81 mg PO DAILY 01/18/24 01/18/24 History release Past Med/Surg History Problem List (Updated 01/18/24 @ 00:09 by Fatemeh Mcleod MD) Hypomagnesemia (Acute) Ambulatory dysfunction (Acute) Recurrent falls (Acute) Generalized weakness (Acute) Behavioral and psychological symptoms of dementia Thrombocytopenia (Chronic) Hypertension (Chronic) Hyperlipemia Confusion Hypercholesteremia (Chronic) Diabetes type 2, controlled (Chronic) Dementia (Chronic) CAD in [place] artery (Acute) Carpal tunnel syndrome (Acute 09/23/12) Claudication (Acute) Frequent falls (Acute) Gait disturbance (Acute) Leg length discrepancy (Acute) Male erectile disorder of organic origin (Acute) Mild cognitive impairment (Acute) Peripheral neuropathy (Chronic) 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) Fall (Acute) Confusion (Acute) Contusion of face (Acute) Facial laceration (Acute) Bee sting Bradycardia Medical History (Updated 01/18/24 @ 00:09 by Fatemeh Mcleod MD) Hypokalemia Influenza B Surgical History History of back surgery Status post total right knee replacement Family History Mother Coronary heart disease Diabetes Parkinson disease Myocardial infarction Father Coronary heart disease Myocardial infarction Denies family history of Ovarian cancer Prostate cancer Breast cancer Colorectal cancer Social History Smoking Status: Never smoker Second Hand Exposure: No; Do You Dip or Chew Tobacco: No; Hx Alcohol Use: No Hx Substance Use: No Preferred Language: Serbian Communication Ability: Impaired Visual Impairment: No Limitations Hearing Ability: Normal Flake [employer] O[employer] Required: No Beliefs That Will Affect Care: None marital status: Current Living Situation: Spouse current occupational status: retired 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 HEENT--PERRL, EOMI, mucous membranes and oropharynx dry. Neck--supple. No JVD. No bruits. Thyroid normal, trachea midline, no adenopathy. Heart--normal S1 and S2. No murmurs, rubs or gallops. Lungs--clear bilaterally, no respiratory distress, no accessory muscle use. Abdomen--normal bowel sounds and soft. Nontender. Nondistended Extremities--No edema. Dermatologic--skin is dry, with a few scattered ecchymoses Neurologic--cranial nerves II through XII grossly intact. Rheumatologic--limited exam Psychiatric--confused with dementia. Results & Data Results & Data Vital Signs (Past 12 Hours) Vital Signs Temp Pulse Pulse Resp BP BP Pulse Ox 01/18/24 00:07 62 01/17/24 23:30 67 13 126/67 98 01/17/24 23:15 62 13 128/65 98 01/17/24 22:45 121/60 98 01/17/24 22:27 65 18 01/17/24 22:15 118/72 01/17/24 22:15 67 13 01/17/24 22:00 109/51 L 01/17/24 22:00 67 11 L 01/17/24 21:48 67 9 L 01/17/24 21:42 69 20 132/72 98 01/17/24 21:36 71 10 L 99 01/17/24 21:36 145/78 H 01/17/24 20:54 70 18 143/69 H 98 01/17/24 20:47 75 18 97 01/17/24 20:42 72 13 132/67 99 01/17/24 20:36 71 15 98 01/17/24 20:21 109 H 15 97 01/17/24 20:06 86 17 97 01/17/24 20:03 89 01/17/24 20:00 88 19 97 01/17/24 19:59 87 20 139/71 97 01/17/24 19:46 36.7 C 103 H 20 124/75 95 O2 Del Method 01/18/24 00:07 01/17/24 23:30 Room Air 01/17/24 23:15 Room Air 01/17/24 22:45 01/17/24 22:27 01/17/24 22:15 01/17/24 22:15 01/17/24 22:00 01/17/24 22:00 01/17/24 21:48 01/17/24 21:42 Room Air 01/17/24 21:36 01/17/24 21:36 01/17/24 20:54 01/17/24 20:47 Room Air 01/17/24 20:42 01/17/24 20:36 01/17/24 20:21 01/17/24 20:06 01/17/24 20:03 01/17/24 20:00 Room Air 01/17/24 19:59 Room Air 01/17/24 19:46 Room Air Laboratory Results Laboratory Results WBC 7.21 K/ul (4.8-10.8) 01/17/24 20:00 RBC 3.98 M/uL (4.70-6.10) L 01/17/24 20:00 Hgb 12.5 g/dl (14.0-18.0) L 01/17/24 20:00 Hct 37.1 % (42.0-52.0) L 01/17/24 20:00 MCV 93.2 fL (80.0-100.0) 01/17/24 20:00 MCH 31.4 pg (25.0-34.0) 01/17/24 20:00 MCHC 33.7 g/dL (32.0-36.0) 01/17/24 20:00 RDW Std Deviation 41.9 fL (36.4-46.3) 01/17/24 20:00 RDW Coeff of Sola 12.0 % (11.5-14.5) 01/17/24 20:00 Plt Count 110 K/uL (130-400) L 01/17/24 20:00 MPV 10.2 fL (9.4-12.4) 01/17/24 20:00 Immature Gran % (Auto) 0.3 % 01/17/24 20:00 Neut % (Auto) 81.3 % 01/17/24 20:00 Lymph % (Auto) 9.0 % 01/17/24 20:00 [place] % (Auto) 7.6 % 01/17/24 20:00 Eos % (Auto) 1.2 % 01/17/24 20:00 Baso % (Auto) 0.6 % 01/17/24 20:00 Neut # (Auto) 5.86 K/uL (1.40-6.50) 01/17/24 20:00 Lymph # (Auto) 0.65 K/uL (1.20-3.40) L 01/17/24 20:00 [place] # (Auto) 0.55 K/uL (0.11-0.59) 01/17/24 20:00 Eos # (Auto) 0.09 K/uL (0.00-0.50) 01/17/24 20:00 Baso # (Auto) 0.04 K/uL (0.00-0.20) 01/17/24 20:00 Immature Gran # (Auto) 0.02 K/uL (0.01-0.20) 01/17/24 20:00 PT 11.3 Seconds (9.0-12.0) 01/17/24 20:00 INR 1.0 (0.9-1.1) 01/17/24 20:00 Sodium 139 mmol/L (136-145) 01/17/24 20:00 Potassium 4.3 mmol/L (3.5-5.1) 01/17/24 20:00 Chloride 102 mmol/L (98-107) 01/17/24 20:00 Carbon Dioxide 28 mmol/L (21-32) 01/17/24 20:00 Anion Gap 9 (3-11) 01/17/24 20:00 BUN 23 mg/dl (6-23) 01/17/24 20:00 Creatinine 1.22 mg/dl (0.6-1.4) 01/17/24 20:00 Est Cr Clr Drug Dosing Not Reportable 01/17/24 20:00 Est GFR ( Amer) 65.9 ml/min 01/17/24 20:00 Est GFR (Non-Af Amer) 56.8 ml/min 01/17/24 20:00 BUN/Creatinine Ratio 18.9 (10-20) 01/17/24 20:00 Glucose 133 mg/dl (70-99(Fasting)) H 01/17/24 20:00 POC Glucose 125 mg/dl (70-99) H 01/17/24 19:57 Calcium 10.0 mg/dl (8.6-10.3) 01/17/24 20:00 Phosphorus 2.3 mg/dl (2.5-4.9) L 01/17/24 20:00 Magnesium 1.4 mg/dl (1.7-2.4) L 01/17/24 20:00 Total Bilirubin 0.5 mg/dl (0.2-1.0) 01/17/24 20:00 Direct Bilirubin 0.1 mg/dl (0-0.2) 01/17/24 20:00 AST 18 U/L (13-39) 01/17/24 20:00 ALT 14 U/L (7-52) 01/17/24 20:00 Alkaline Phosphatase 81 U/L (34-104) 01/17/24 20:00 Troponin I High Sens 8.4 pg/ml (0-20) 01/17/24 20:00 Total Protein 7.5 gm/dl (6.0-8.3) 01/17/24 20:00 Albumin 4.6 gm/dl (3.4-5.0) 01/17/24 20:00 Globulin 2.9 gm/dl (2.5-4.0) 01/17/24 20:00 Albumin/Globulin Ratio 1.6 (0.9-2) 01/17/24 20:00 Lipase 75 U/L (11-82) 01/17/24 20:00 TSH 3.455 uIu/ml (0.300-4.500) 01/17/24 20:00 Adenovirus (PCR) Not Detected (NotDetected) 01/17/24 22:25 B. pertussis DNA (PCR) Not Detected (NotDetected) 01/17/24 22:25 B.parapertussis DNA PCR Not Detected (NotDetected) 01/17/24 22:25 C. pneumoniae DNA (PCR) Not Detected (NotDetected) 01/17/24 22:25 Coronavirus OC43 (PCR) Not Detected (NotDetected) 01/17/24 22:25 Coronavirus HKU1 (PCR) Not Detected (NotDetected) 01/17/24 22:25 Coronavirus 229E (PCR) Not Detected (NotDetected) 01/17/24 22:25 SARS-CoV-2 (PCR) Not Detected (NotDetected) 01/17/24 22:25 Coronavirus NL63 (PCR) Not Detected (NotDetected) 01/17/24 22:25 Human Metapneumovir PCR Not Detected (NotDetected) 01/17/24 22:25 Influenza Type A (PCR) Not Detected (NotDetected) 01/17/24 22:25 Influenza Type B (PCR) Not Detected (NotDetected) 01/17/24 22:25 M. pneumoniae (PCR) Not Detected (NotDetected) 01/17/24 22:25 Parainfluenza 1 (PCR) Not Detected (NotDetected) 01/17/24 22:25 Parainfluenza 2 (PCR) Not Detected (NotDetected) 01/17/24 22:25 Parainfluenza 3 (PCR) Not Detected (NotDetected) 01/17/24 22:25 Parainfluenza 4 (PCR) Not Detected (NotDetected) 01/17/24 22:25 RSV (PCR) Not Detected (NotDetected) 01/17/24 22:25 Entero/Rhino (PCR) DETECTED (NotDetected) A 01/17/24 22:[address] 01/17/24 19:59 Exam(s): CT HEAD Without Contrast EXAM: CT Head Without Intravenous Contrast CLINICAL HISTORY: Reason for exam: weakness, dementia. TECHNIQUE: Axial computed tomography images of the head/brain without intravenous contrast. CTDI is 38.49 mGy and DLP is 624.41 mGy-cm. Automated exposure control was utilized for the study. A dose lowering technique was utilized adhering to the principles of ALARA. COMPARISON: March 01, 2020 FINDINGS: Brain: Mild cerebral atrophy and periventricular white matter low density consistent with chronic small vessel disease and/or senescent changes, unchanged. No acute large vessel infarct or intracranial hemorrhage is seen. Ventricles: Mildly prominent. No mass or hemorrhage. Bones/joints: Unremarkable. No acute fracture. Soft tissues: Unremarkable. Sinuses: Unremarkable as visualized. No acute sinusitis. Mastoid air cells: Unremarkable as visualized. No mastoid effusion. IMPRESSION: Mild cerebral atrophy and periventricular white matter low density consistent with chronic small vessel disease and/or senescent changes, unchanged. No acute large vessel infarct or intracranial hemorrhage is seen. Electronically signed by: Denilson Rushing MD 01/17/24 22:31 PM Head CTA 01/17/24 19:59 Exam(s): CTA HEAD With Contrast IV Amt: OPTIRAY 320 120ML EXAM: CT Angiography Head With Intravenous Contrast CLINICAL HISTORY: Reason for exam: weakness, dementia. TECHNIQUE: Axial computed tomographic angiography images of the head with intravenous contrast. CTDI is 13.04 mGy and DLP is 476.37 mGy-cm. Automated exposure control was utilized for the study. A dose lowering technique was utilized adhering to the principles of ALARA. MIP reconstructed images were created and reviewed. CONTRAST: Patient received OPTIRAY 320 120ML of IV contrast COMPARISON: No relevant prior studies available. FINDINGS: Right internal carotid artery: Calcified plaque in the distal right internal carotid artery with less than 20% stenosis. No aneurysm. Right anterior cerebral artery: Unremarkable. No occlusion or significant stenosis. No aneurysm. Right middle cerebral artery: Unremarkable. No occlusion or significant stenosis. No aneurysm. Right posterior cerebral artery: Unremarkable. No occlusion or significant stenosis. No aneurysm. Right vertebral artery: Unremarkable as visualized. Left internal carotid artery: Calcified plaque in the distal left internal carotid artery with less than 20% stenosis. No aneurysm. Left anterior cerebral artery: Unremarkable. No occlusion or significant stenosis. No aneurysm. Left middle cerebral artery: Unremarkable. No occlusion or significant stenosis. No aneurysm. Left posterior cerebral artery: The left posterior cerebral artery demonstrates a normal variant of origin from the anterior circulation. No occlusion or significant stenosis. No aneurysm. Left vertebral artery: The distal left vertebral artery is small and terminates into the PICA. This is a normal variant. Basilar artery: Unremarkable. No occlusion or significant stenosis. No aneurysm. IMPRESSION: Mild calcified plaque with up to 20% stenosis in the distal internal carotid arteries bilaterally. No aneurysm, vascular malformation, or acute large vessel occlusion is identified. Electronically signed by: Denilson Rushing MD 01/17/24 22:43 PM Neck CTA 01/17/24 19:59 Exam(s): CTA NECK With Contrast IV Amt: OPTIRAY 320 120ML EXAM: CT Angiography Neck With Intravenous Contrast CLINICAL HISTORY: Reason for exam: weakness, dementia. TECHNIQUE: Routine carotid CT angiography protocol was performed with intravenous contrast. NASCET criteria using the distal ICAs for comparison were used for evaluation of stenoses. CTDI is 13.04 mGy and DLP is 476.37 mGy-cm. Automated exposure control was utilized for the study. A dose lowering technique was utilized adhering to the principles of ALARA. MIP reconstructed images were created and reviewed. CONTRAST: Patient received OPTIRAY 320 120ML of IV contrast COMPARISON: None. FINDINGS: VASCULATURE: Right common carotid artery: Calcified plaque in the right common carotid artery with less than 20% stenosis. No dissection. Right internal carotid artery: Calcified plaque in the right internal carotid artery with 20% stenosis. The distal right internal carotid artery is tortuous but widely patent. No dissection. Right external carotid artery: Unremarkable. No occlusion. Right vertebral artery: Unremarkable. No occlusion or significant stenosis. No dissection. Left common carotid artery: Unremarkable. No occlusion or significant stenosis. No dissection. Left internal carotid artery: Heavily calcified plaque in the proximal left internal carotid artery causes 40% stenosis. No dissection. Left external carotid artery: Unremarkable. No occlusion. Left vertebral artery: The left vertebral artery is smaller than the right and terminates into the PICA. This is a normal variant. No occlusion or significant stenosis. No dissection. Aorta: The aortic arch is mildly calcified but nondilated. There is no aneurysm or dissection. NECK: Bones/joints: Unremarkable. Normal anatomic variant of incomplete fusion of the posterior arch of C1. There are mild degenerative changes throughout the cervical spine. No acute fracture or subluxation is seen. Soft tissues: Unremarkable. Lung apices: Clear. CAROTID STENOSIS REFERENCE USING NASCET CRITERIA: % ICA stenosis = (1 - narrowest ICA diameter/diameter of distal cervical ICA) x 100. Mild - <50% stenosis. Moderate - 50-69% stenosis. Severe - 70-94% stenosis. Near occlusion - 95-99% stenosis. Occluded - 100% stenosis. IMPRESSION: Heavily calcified plaque in the proximal left internal carotid artery causes 40% stenosis. No significant flow-limiting stenosis or dissection is seen in the arterial structures of the neck. Electronically signed by: Denilson Rushing MD 01/17/24 22:36 PM Code Status & VTE Plan Code Status DNR/DNI As discussed with his VTE Prophylaxis Plan VTE Prophylaxis will be ordered: Yes PG Care Time/CCT Total # of Minutes Spent Total Time Spent with Patient: Total time spent is greater than 50% in coordination of care (as documented) at patient's floor/unit and/or counseling patient: Coding Level of Care Code 20790 INT INP/OBS CARE 3/75MIN Diagnoses Hypomagnesemia E83.42 Recurrent falls R29.6 Ambulatory dysfunction R26.2 Behavioral and psychological symptoms of dementia F03.918 Diabetes type 2, controlled E11.9 Generalized weakness R53.1 Hypertension I10 Thrombocytopenia D69.6 Hyperlipemia E78.5 CAD in [place] artery I25.10
[2024-01-18] MEDS ORDERED: MAGNESIUM HYDROXIDE SUSP 30 ML UDC PO PRN (02:11)
[2024-01-18] MEDS ORDERED: ALUMINUM/MAGNESIUM SUSP 30 ML UDC PO PRN (02:11)
[2024-01-18] MEDS ORDERED: ACETAMINOPHEN 325 MG TAB PO PRN (02:11)
[2024-01-18] MEDS: OLANZapine 10 MG/2.1 ML SDV IM PRN (02:22)
[2024-01-18 05:17] LABS: Hematocrit (blood only) 33.3 % (42.0-52.0); Hemoglobin 11.2 g/dl (14.0-18.0); Mean Corpuscular Hemoglobin 31.1 pg (25.0-34.0); Mean Corpuscular Hgb Conc 33.6 g/dL (32.0-36.0); Mean Corpuscular Volume 92.5 fL (80.0-100.0); Mean Platelet Volume 10.4 fL (9.4-12.4); Platelet Count 91 K/uL (130-400); RDW Coefficient of Variation 11.9 % (11.5-14.5); RDW Standard Deviation 40.6 fL (36.4-46.3); White Blood Count 5.26 K/ul (4.8-10.8)
[2024-01-18] MEDS: OLANZapine 10 MG/2.1 ML SDV IM ONE (05:23)
[2024-01-18 05:24] LABS: BUN Creatinine Ratio 16.8 (10-20); Calcium 9.9 mg/dl (8.6-10.3); Creatinine Clr Calc Pharmacy 55.8 ml/min; Est GFR (African American) 77.2 ml/min; Est GFR (Non-African American) 66.6 ml/min; Phosphorus 2.7 mg/dl (2.5-4.9); Potassium 3.6 mmol/L (3.5-5.1)
[2024-01-18 05:31] LABS: Acanthocytes 2+; Basophils # (auto) 0.02 K/uL (0.00-0.20); Basophils % (auto) 0.4 %; Eosinophils # (auto) 0.01 K/uL (0.00-0.50); Eosinophils % (auto) 0.2 %; Immature Granulocytes # (auto) 0.01 K/uL (0.01-0.20); Immature Granulocytes % (auto) 0.2 %; Lymphocytes # (auto) 0.73 K/uL (1.20-3.40); Lymphocytes % (auto) 13.9 %; Monocytes # (auto) 0.46 K/uL (0.11-0.59); Monocytes % (auto) 8.7 %; Neutrophils # (auto) 4.03 K/uL (1.40-6.50); Neutrophils % (auto) 76.6 %
--- NOTE | 2024-01-18 07:04 | XRay Report ---
XR chest 1V portable HISTORY: 78 years-old Male weakness acute weakness COMPARISON: 03/01/2020 TECHNIQUE: AP view of the chest FINDINGS: Cardiomediastinal and hilar silhouettes are within normal limits. Spondylotic spurring of the spine. No pneumothorax or pleural effusion. The lungs appear clear. IMPRESSION: No acute process. ACT 112: Negative or not required by law. The above report was generated using voice recognition software. It may contain grammatical, syntax o r spelling errors. Electronically signed by: Elvin Callaway M.D. 01/18/2024 7:02 AM
--- NOTE | 2024-01-18 07:05 | XRay Report ---
XR chest 1V portable HISTORY: 78 years-old Male Chest pain, nonspecific COMPARISON: 01/17/2024 TECHNIQUE: AP view of the chest FINDINGS: Cardiac silhouette is normal. No pneumothorax or pleural effusion. The lungs are clear. Bones appear grossly intact. Left-sided rotator cuff calcific tendinosis. IMPRESSION: No acute process. ACT 112: Negative or not required by law. The above report was generated using voice recognition software. It may contain grammatical, syntax o r spelling errors. Electronically signed by: Elvin Callaway M.D. 01/18/2024 7:03 AM
[2024-01-18] MEDS: SODIUM CHLORIDE 0.9% 1,000 ML IV SCH (08:08)
[2024-01-18] MEDS: OLANZapine 10 MG/2.1 ML SDV IM STA (08:09)
[2024-01-18] MEDS: HEPARIN SOD 5,000 UNIT/0.5 ML VIAL SQ SCH (08:09)
[2024-01-18] MEDS: ASPIRIN 81 MG ECTAB PO SCH (08:09)
[2024-01-18] MEDS: LORazepam 1 MG/1 ML SYR ED Inj Use IM STA (08:09)
[2024-01-18] MEDS: CYANOCOBALAMIN (B-12) 500 MCG TABLET PO SCH (08:10)
[2024-01-18] MEDS: ATORVASTATIN 40 MG TAB PO SCH (08:10)
[2024-01-18] MEDS: lisinopril 20 MG TAB PO SCH (08:10)
[2024-01-18] MEDS: MEMANTINE HCL 10 MG TAB PO SCH (08:10)
[2024-01-18] MEDS: DONEPEZIL HCL 10 MG TAB PO SCH (08:10)
[2024-01-18] MEDS: SERTRALINE HCL 100 MG TABLET PO SCH (08:10)
[2024-01-18 08:58] LABS: Appearance Urine Clear (Clear); Bilirubin Urine Negative (Negative); Blood Urine Negative (Negative); Color Urine Yellow; Glucose Urine UA Negative (Negative); Ketones Urine Negative (Negative); Leukocyte Esterase Urine Negative (Negative); Nitrite Urine Negative (Negative); Protein Urine Negative (Negative); Specific Gravity Urine 1.011 (1.000-1.030); Urobilinogen Urine Negative (Negative)
--- NOTE | 2024-01-18 09:14 | Hospitalist Progress Note ---
Date of Service January 18, 2024 Assessment & Plan (1) Generalized weakness: Plan: Progressive generalized weakness/increasing frequency of falls/ambulatory dysfunction- concern for metabolic encephalopahty on top of dementia from rhinovirus infection present on admission pneumonia ruled out, not hypoxic Multifactorial including but not limited to: Progressive dementia, muscle atrophy, medication related, hypomagnesemia cerebrovascular disease, decreased oral intake and weight loss. TIA/CVA workup: CT head shows chronic small vessel disease. CTA head showed 20% distal ICA stenoses bilaterally. CTA neck shows 40% proximal left ICA narrowing Progressive dementia with behavioral and psychological symptoms/depression/dementia/confusion- Continue donepezil, memantine, sertraline Zyprexa 5 mg IM every 4 hours as needed for agitation, will try 1 dose of Vis taril to help with agitation on the afternoon of 01/17 Patient's will stay with him to try to minimize Hypomagnesemia/dehydration/CKD- hydration and replete magnesium overall appears relatively dehydrated, and reportedly had his HCTZ decreased from daily to every other day by Dr. Schulte on December 07 The was told not to have him resume hydrochlorothiazide until Dr. Schulte gives the okay (2) Ambulatory dysfunction: Plan: Patient will need PT/OT assessment prior to discharge, and is aware that he would likely benefit from inpatient rehab (3) Thrombocytopenia: Plan: chronically low hovering 90-110 Plan Chronic stable hypertension, continue on lisinopril Chronic stable CAD on aspirin, atorvastatin Weight loss- Patient has had a 13 pound weight loss since early December, despite having his hydr ochlorothiazide dose cut in half CODE STATUS: DNR/DNI Admission and Anticipated Discharge Date Admission Date: January 18, 2024 Subjective Confused and agitated picking up blankets, moving try to get out of bed redirectable but persistent Offers no focal complaints said he is balance and strength been worsening of late at home over the last week and over the last week and particularly and he also has been incontinent of bowel and bladder. He had increasing falls at home Physical Exam Physical Exam: Patient is awake he is not oriented except for person is present in the room Cardiac exam is distant regular systolic murmur Lungs are clear Is no cervical axillary inguinal lymphadenopathy Abdomen is with guarding to the right upper quadrant no rebound (LFTs are nor mal) Results & Data Results & Data Vital Signs (Past 12 Hours) Vital Signs Pulse Pulse Resp BP BP BP Pulse Ox 01/18/24 08:16 52 L 18 105/59 L 01/18/24 07:18 49 L 01/18/24 06:18 63 17 01/18/24 06:03 63 11 L 110/69 92 01/18/24 05:15 52 L 16 115/56 L 95 01/18/24 03:06 102 H 19 122/55 L 95 01/18/24 02:30 136/66 01/18/24 01:45 132/61 01/18/24 01:15 66 16 130/69 100 01/18/24 00:07 62 01/17/24 23:30 67 13 126/67 98 01/17/24 23:15 62 13 128/65 98 01/17/24 22:45 121/60 98 01/17/24 22:27 65 18 01/17/24 22:15 118/72 01/17/24 22:15 67 13 01/17/24 22:00 109/51 L 01/17/24 22:00 67 11 L 01/17/24 21:48 67 9 L 01/17/24 21:42 69 20 132/72 98 01/17/24 21:36 71 10 L 99 01/17/24 21:36 145/78 H O2 Del Method 01/18/24 08:16 Room Air 01/18/24 07:18 01/18/24 06:18 01/18/24 06:03 Room Air 01/18/24 05:15 Room Air 01/18/24 03:06 Room Air 01/18/24 02:30 01/18/24 01:45 01/18/24 01:15 Room Air 01/18/24 00:07 01/17/24 23:30 Room Air 01/17/24 23:15 Room Air 01/17/24 22:45 01/17/24 22:27 01/17/24 22:15 01/17/24 22:15 01/17/24 22:00 01/17/24 22:00 01/17/24 21:48 01/17/24 21:42 Room Air 01/17/24 21:36 01/17/24 21:36 PG Care Time/CCT Total # of Minutes Spent Total Time Spent with Patient: Total time spent is greater than 50% in coordination of care (as documented) at patient's floor/unit and/or counseling patient: Coding Level of Care Code None Diagnoses Generalized weakness R53.1 Ambulatory dysfunction R26.2 Thrombocytopenia D69.6
[2024-01-18] MEDS: hydrOXYzine HCL IM SOLN 50 MG/ML 1 ML VIAL IM STA (15:54)
--- NOTE | 2024-01-18 17:04 | Electrocardiogram Report ---
Test Reason : Blood Pressure : / mmHG Vent. Rate : 088 BPM Atrial Rate : 088 BPM P-R Int : 182 ms QRS Dur : 124 ms QT Int : 376 ms P-R-T Axes : 048 -45 076 degrees QTc Int : 454 ms Normal sinus rhythm Left anterior fascicular block Cannot rule out Anterior infarct , age undetermined Abnormal ECG When compared with ECG of 01-MAR-2020 12:47, Minimal criteria for Anterior infarct are now Present Nonspecific T wave abnormality no longer evident in Inferior leads Confirmed by Giancarlo Tafoya ([id number]) on 01/18/2024 5:03:54 PM Referred By: REFERRED SELF Confirmed By:Giancarlo Tafoya
[2024-01-19 08:00] LABS: Basophils # (auto) 0.01 K/uL (0.00-0.20); Basophils % (auto) 0.2 %; Eosinophils # (auto) 0.01 K/uL (0.00-0.50); Eosinophils % (auto) 0.2 %; Hematocrit (blood only) 36.3 % (42.0-52.0); Hemoglobin 12.1 g/dl (14.0-18.0); Immature Granulocytes # (auto) 0.02 K/uL (0.01-0.20); Immature Granulocytes % (auto) 0.3 %; Lymphocytes # (auto) 0.73 K/uL (1.20-3.40); Lymphocytes % (auto) 11.4 %; Mean Corpuscular Hemoglobin 30.9 pg (25.0-34.0); Mean Corpuscular Hgb Conc 33.3 g/dL (32.0-36.0); Mean Corpuscular Volume 92.6 fL (80.0-100.0); Mean Platelet Volume 10.8 fL (9.4-12.4); Monocytes # (auto) 0.68 K/uL (0.11-0.59); Monocytes % (auto) 10.6 %; Neutrophils # (auto) 4.96 K/uL (1.40-6.50); Neutrophils % (auto) 77.3 %; Platelet Count 90 K/uL (130-400); RDW Coefficient of Variation 12.1 % (11.5-14.5); RDW Standard Deviation 41.2 fL (36.4-46.3); Red Blood Count 3.92 M/uL (4.70-6.10); White Blood Count 6.41 K/ul (4.8-10.8)
[2024-01-19 08:14] LABS: BUN Creatinine Ratio 14.3 (10-20); Creatinine Clr Calc Pharmacy 56.8 ml/min; Est GFR (Non-African American) 68.1 ml/min; Magnesium 1.5 mg/dl (1.7-2.4); Phosphorus 3.4 mg/dl (2.5-4.9); Potassium 3.9 mmol/L (3.5-5.1)
[2024-01-19] MEDS: ACETAMINOPHEN 1,000 MG/100 ML VIAL IV PRN (12:12)
[2024-01-19] MEDS: SODIUM CHLORIDE 0.9% 1,000 ML IV SCH (13:43)
[2024-01-19] MEDS: cefTRIAXone SODIUM 2,000 MG/50 ML BAG IV SCH (14:33)
[2024-01-19] MEDS: MAGNESIUM SULFATE / D5W 1 GM/100 ML BAG IV SCH (15:12)
--- NOTE | 2024-01-19 17:18 | Hospitalist Progress Note ---
Date of Service January 19, 2024 Assessment & Plan (1) Generalized weakness: Plan: Progressive generalized weakness/increasing frequency of falls/ambulatory dysfunction- concern for metabolic encephalopathy on top of dementia from rhinovirus infection present on admission pneumonia ruled out, not hypoxic With low-grade temperature patient smells of strong urine patient cannot complete a urine catch of any kind subsequently urine culture obtained by [place] catheter. Given mild thrombocytopenia Lyme screen will be undertaken blood cultures are also undertaken and given dose of ceftriaxone 2000 mg daily. TIA/CVA workup: CT head shows chronic small vessel disease. CTA head showed 20% distal ICA stenoses bilaterally. CTA neck shows 40% proximal left ICA narrowing Progressive dementia with behavioral and psychological symptoms/depression/dementia/confusion- Continue donepezil, memantine, sertraline Zyprexa 5 mg IM every 4 hours as needed for agitation, Vistaril dosing similar prolonged effects will avoid in the future Patient's will stay with him to try to minimize Hypomagnesemia/dehydration/CKD- hydration and replete magnesium once again on 01/19/2024 Patient looks to have had a significant cognitive decline even prehospital is difficult to tell what is metabolic encephalopathy versus progression of dementia (2) Ambulatory dysfunction: Plan: Patient will need PT/OT assessment prior to discharge, and is aware that he would likely benefit from inpatient rehab (3) Thrombocytopenia: Plan: chronically low hovering 90-110 Plan Chronic stable hypertension, continue on lisinopril Chronic stable CAD on aspirin, atorvastatin Weight loss- Patient has had a 13 pound weight loss since early December, despite having his hydrochlorothiazide dose cut in half CODE STATUS: DNR/DNI Admission and Anticipated Discharge Date Admission Date: January 18, 2024 Subjective Patient has been lethargic since Vistaril administration but he is much less agitated and easier to control. He was attempting to crawl out of bed and was at risk of self-harm on 01/18/2024 He also did develop a low-grade temperature on 01/18, blood cultures were obt ained urine catheterization was performed for culture and given a dose of ceftriaxone Additionally a Lyme screen was sent This could all be metabolic encephalopathy from her antibiotics on presentation although is not having significant coryza or upper respiratory symptoms Due to some lethargy and decreased p.o. intake he was started on intravenous fluids Physical Exam Physical Exam: Patient is able to look at me answer yes or no questions he is more lethargic than 1 day prior family is present at bedside He once again does not have any lymphadenopathy his cardiac exam is regular his lungs are with diminished effort but sound be reasonably clear abdomen is scaphoid NABS no upper quadrant tenderness no lower quadrant tenderness no suprapubic tenderness Skin is with bruises from recent falling Results & Data Results & Data Vital Signs (Past 12 Hours) Vital Signs Temp Pulse Pulse Resp BP Pulse Ox O2 Del Method 01/19/24 15:36 99.1 F 63 18 129/75 94 Room Air 01/19/24 14:01 76 01/19/24 11:47 100.2 F H 86 20 132/62 93 Room Air 01/19/24 08:04 98.1 F 16 132/62 93 Room Air 01/19/24 06:14 79 Laboratory Results Reviewed CBC reviewed chemistry, does have low magnesium this will be repleted PG Care Time/CCT Total # of Minutes Spent Total Time Spent with Patient: Total time spent is greater than 50% in coordination of care (as documented) at patient's floor/unit and/or counseling patient: Coding Level of Care Code 85265 SUB INP/OBS CARE 3/50MIN Diagnoses Generalized weakness R53.1 Ambulatory dysfunction R26.2 Thrombocytopenia D69.6
[2024-01-20 06:42] LABS: Basophils # (auto) 0.01 K/uL (0.00-0.20); Basophils % (auto) 0.1 %; Eosinophils # (auto) 0.01 K/uL (0.00-0.50); Eosinophils % (auto) 0.1 %; Hematocrit (blood only) 34.7 % (42.0-52.0); Hemoglobin 11.7 g/dl (14.0-18.0); Immature Granulocytes # (auto) 0.02 K/uL (0.01-0.20); Immature Granulocytes % (auto) 0.3 %; Lymphocytes # (auto) 0.95 K/uL (1.20-3.40); Lymphocytes % (auto) 12.3 %; Mean Corpuscular Hemoglobin 31.5 pg (25.0-34.0); Mean Corpuscular Hgb Conc 33.7 g/dL (32.0-36.0); Mean Corpuscular Volume 93.3 fL (80.0-100.0); Mean Platelet Volume 10.5 fL (9.4-12.4); Monocytes # (auto) 0.58 K/uL (0.11-0.59); Monocytes % (auto) 7.5 %; Neutrophils # (auto) 6.14 K/uL (1.40-6.50); Neutrophils % (auto) 79.7 %; Platelet Count 91 K/uL (130-400); RDW Standard Deviation 41.1 fL (36.4-46.3); Red Blood Count 3.72 M/uL (4.70-6.10); White Blood Count 7.71 K/ul (4.8-10.8)
[2024-01-20 06:51] LABS: Albumin Level 3.8 gm/dl (3.4-5.0); BUN Creatinine Ratio 20.4 (10-20); Calcium 9.7 mg/dl (8.6-10.3); Creatinine Clr Calc Pharmacy 57.9 ml/min; Est GFR (African American) 80.8 ml/min; Est GFR (Non-African American) 69.7 ml/min; Phosphorus 2.7 mg/dl (2.5-4.9); Potassium 3.7 mmol/L (3.5-5.1)
--- NOTE | 2024-01-20 16:46 | Hospitalist Progress Note ---
Date of Service January 20, 2024 Assessment & Plan (1) Generalized weakness: Plan: Progressive generalized weakness/increasing frequency of falls/ambulatory dysfunction- concern for metabolic encephalopathy on top of dementia from rhinovirus infection present on admission pneumonia ruled out, not hypoxic With low-grade temperature patient smells of strong urine patient cannot complete a urine catch of any kind subsequently urine culture obtained by [place] catheter. Given mild thrombocytopenia Lyme screen ordered and negative blood cultures are also undertaken and continues on ceftriaxone 2000 mg daily. TIA/CVA workup: CT head shows chronic small vessel disease. CTA head showed 20% distal ICA stenoses bilaterally. CTA neck shows 40% proximal left ICA narrowing Progressive dementia with behavioral and psychological symptoms/depression/dementia/confusion- Continue donepezil, memantine, sertraline Zyprexa 5 mg IM every 4 hours as needed for agitation, Vistaril dosing similar prolonged effects will avoid in the future try to use seroquel hs 01/20/24 to reduce sundowning Patient's will stay with him to try to minimize Hypomagnesemia/dehydration/CKD- hydration and replete magnesium once again on 01/19/2024 Patient looks to have had a significant cognitive decline even prehospital is difficult to tell what is metabolic encephalopathy versus progression of dementia (2) Ambulatory dysfunction: Plan: Patient will need PT/OT assessment prior to discharge, and is aware that he would likely benefit from inpatient rehab (3) Thrombocytopenia: Plan: chronically low hovering 90-110 Plan Chronic stable hypertension, continue on lisinopril Chronic stable CAD on aspirin, atorvastatin Weight loss- Patient has had a 13 pound weight loss since early December, despite having his hydrochlorothiazide dose cut in half CODE STATUS: DNR/DNI Admission and Anticipated Discharge Date Admission Date: January 18, 2024 Subjective Patient more alert but still very confused has mitts on to prevent pulling of [place] catheter. Attempted walking him reports from therapy says he did poorly with that. He has been falling of late. Vitamin B1 ordered and thiamine will be given after that is drawn. Patient still with no confirmed infectious etiology at this time other than rhinovirus Physical Exam Physical Exam: Patient is able to look at me answer yes or no questions he can speak in a confabulatory manner He once again does not have any lymphadenopathy his cardiac exam is regular his lungs are with diminished effort but sound be reasonably clear abdomen is scaphoid NABS no upper quadrant tenderness no lower quadrant tenderness no suprapubic tenderness Skin is with bruises from recent falling in various stages of healing Results & Data Results & Data Vital Signs (Past 12 Hours) Vital Signs Temp Pulse Pulse Resp BP Pulse Ox O2 Del Method 01/20/24 15:05 99.3 F 78 14 125/76 98 Room Air 01/20/24 13:22 100 H 01/20/24 10:52 98.6 F 76 16 107/58 L 95 Room Air 01/20/24 09:00 Room Air 01/20/24 07:17 98.6 F 62 15 138/77 98 Room Air 01/20/24 07:00 60 Laboratory Results Reviewed CBC reviewed chemistry B1 ordered and pending Blood cultures negative to date PG Care Time/CCT Total # of Minutes Spent Total Time Spent with Patient: Total time spent is greater than 50% in coordination of care (as documented) at patient's floor/unit and/or counseling patient: Coding Level of Care Code 26343 SUB INP/OBS CARE 2/35MIN Diagnoses Generalized weakness R53.1 Ambulatory dysfunction R26.2 Thrombocytopenia D69.6
[2024-01-20] MEDS: THIAMINE HCL 500 MG in SODIUM CHLORIDE 0.9% 50 ML IV ONE (18:23)
[2024-01-20] MEDS: QUEtiapine FUMARATE 25 MG TABLET PO SCH (20:25)
--- NOTE | 2024-01-21 08:11 | Hospitalist Progress Note ---
Date of Service January 21, 2024 Assessment & Plan (1) Generalized weakness: Plan: Progressive generalized weakness/increasing frequency of falls/ambulatory dysfunction- concern for metabolic encephalopathy on top of dementia from rhinovirus infection present on admission pneumonia ruled out, not hypoxic With low-grade temperature patient smells of strong urine patient cannot complete a urine catch of any kind subsequently urine culture obtained by [place] catheter. Given mild thrombocytopenia Lyme screen ordered and negative blood cultures are also undertaken and continues on ceftriaxone 2000 mg daily. TIA/CVA workup: CT head shows chronic small vessel disease. CTA head showed 20% distal ICA stenoses bilaterally. CTA neck shows 40% proximal left ICA narrowing Progressive dementia with behavioral and psychological symptoms/depression/dementia/confusion- Continue donepezil, memantine, sertraline Good improvement sleep and morning restfulness after given seroquel hs 01/20/24 to reduce sundowning will reduce dose once again to try to avoid sedation but continue to improve sleep. Patient's will stay with him to try to minimize Hypomagnesemia/dehydration/CKD- hydration and replete magnesium once again on 01/19/2024 Patient looks to have had a significant cognitive decline even prehospital is difficult to tell what is metabolic encephalopathy versus progression of dementia (2) Ambulatory dysfunction: Plan: Patient will need PT/OT assessment prior to discharge, and is aware that he would likely benefit from inpatient rehab (3) Thrombocytopenia: Plan: chronically low hovering 90-110 Plan Chronic stable hypertension, continue on lisinopril Chronic stable CAD on aspirin, atorvastatin Weight loss- Patient has had a 13 pound weight loss since early December, despite having his hydrochlorothiazide dose cut in half CODE STATUS: DNR/DNI Admission and Anticipated Discharge Date Admission Date: January 18, 2024 Subjective Patient has markedly improved family at the bedside and happy he still has dementia and fidgeting but he is much more awake and alert Physical Exam Physical Exam: Patient is able to look at me answer and more constructive manner. cardiac exam is regular his lungs are with diminished effort but sound be wally sonably clear abdomen is scaphoid NABS no upper quadrant tenderness no lower quadrant tenderness no suprapubic tenderness Skin is with bruises from recent falling in various stages of healing Results & Data Results & Data Vital Signs (Past 12 Hours) Vital Signs Temp Pulse Pulse Resp BP Pulse Ox O2 Del Method 06/20/24 07:28 61 01/21/24 07:28 98.2 F 65 16 136/69 96 Room Air 01/20/24 22:54 98.8 F 87 18 134/69 93 Room Air 01/20/24 22:01 84 01/20/24 20:25 Room Air Laboratory Results Reviewed CBC reviewed chemistry UA is unrevealing but it was a late collection after antibiotics were administered PG Care Time/CCT Total # of Minutes Spent Total Time Spent with Patient: Total time spent is greater than 50% in coordination of care (as documented) at patient's floor/unit and/or counseling patient: Coding Level of Care Code 56697 SUB INP/OBS CARE 2/35MIN Diagnoses Generalized weakness R53.1 Ambulatory dysfunction R26.2 Thrombocytopenia D69.6
[2024-01-21 08:36] LABS: Hemoglobin 11.1 g/dl (14.0-18.0); Mean Corpuscular Hemoglobin 31.3 pg (25.0-34.0); Mean Corpuscular Hgb Conc 33.6 g/dL (32.0-36.0); Mean Platelet Volume 10.1 fL (9.4-12.4); Platelet Count 86 K/uL (130-400); RDW Coefficient of Variation 12.1 % (11.5-14.5); RDW Standard Deviation 41.8 fL (36.4-46.3); Red Blood Count 3.55 M/uL (4.70-6.10); White Blood Count 7.18 K/ul (4.8-10.8)
[2024-01-21] MEDS: QUEtiapine FUMARATE 25 MG TABLET PO SCH (20:41)
--- NOTE | 2024-01-22 17:04 | Hospitalist Progress Note ---
Date of Service January 22, 2024 Assessment & Plan (1) Generalized weakness: Plan: Progressive generalized weakness/increasing frequency of falls/ambulatory dysfunction- concern for metabolic encephalopathy on top of dementia from rhinovirus infection present on admission pneumonia ruled out, not hypoxic With low-grade temperature patient smells of strong urine patient cannot complete a urine catch of any kind subsequently urine culture obtained by [place] catheter. Given mild thrombocytopenia Lyme screen ordered and negative blood cultures are also undertaken and continues on ceftriaxone 2000 mg daily. TIA/CVA workup: CT head shows chronic small vessel disease. CTA head showed 20% distal ICA stenoses bilaterally. CTA neck shows 40% proximal left ICA narrowing Progressive dementia with behavioral and psychological symptoms/depression/dementia/confusion- Continue donepezil, memantine, sertraline Good improvement sleep and morning restfulness after given seroquel hs 01/20/24 to reduce sundowning will reduce dose once again to try to avoid sedation but continue to improve sleep. Patient's will stay with him to try to minimize Hypomagnesemia/dehydration/CKD- hydration and replete magnesium once again on 01/19/2024 Patient looks to have had a significant cognitive decline even prehospital is difficult to tell what is metabolic encephalopathy versus progression of dementia (2) Ambulatory dysfunction: Plan: Patient will need PT/OT assessment prior to discharge, and is aware that he would likely benefit from inpatient rehab (3) Thrombocytopenia: Plan: chronically low hovering 90-110 Plan Chronic stable hypertension, continue on lisinopril Chronic stable CAD on aspirin, atorvastatin Weight loss- Patient has had a 13 pound weight loss since early December, despite having his hydrochlorothiazide dose cut in half CODE STATUS: DNR/DNI Admission and Anticipated Discharge Date Admission Date: January 18, 2024 Subjective Patient has markedly improved family at the bedside and happy he still has dementia and fidgeting but he is much more awake and alert pt did poorly with therapy and family is reconsidering if they can care for him at home Physical Exam Physical Exam: Patient is able to look at me answer and more constructive manner. cardiac exam is regular his lungs are with diminished effort but sound be reasonably clear abdomen is scaphoid NABS no upper quadrant tenderness no lower quadrant tenderness no suprapubic tenderness Skin is with bruises from recent falling in various stages of healing Results & Data Results & Data Vital Signs (Past 12 Hours) Vital Signs Temp Pulse Pulse Resp BP Pulse Ox O2 Del Method 01/22/24 16:41 97.7 F 75 16 100/56 L 95 Room Air 01/22/24 14:09 102 H 01/22/24 13:43 54 L 01/22/24 13:25 54 L 01/22/24 11:33 97.9 F 72 18 111/68 95 Room Air 01/22/24 07:17 98.1 F 59 L 16 164/79 H 97 Room Air PG Care Time/CCT Total # of Minutes Spent Total Time Spent with Patient: Total time spent is greater than 50% in coordination of care (as documented) at patient's floor/unit and/or counseling patient: Coding Level of Care Code 76160 SUB INP/OBS CARE 2/35MIN Diagnoses Generalized weakness R53.1 Ambulatory dysfunction R26.2 Thrombocytopenia D69.6
--- NOTE | 2024-01-23 16:09 | Hospitalist Progress Note ---
Date of Service January 23, 2024 Assessment & Plan (1) Generalized weakness: Plan: Progressive generalized weakness/increasing frequency of falls/ambulatory dysfunction- concern for metabolic encephalopathy on top of dementia from rhinovirus infection present on admission pneumonia ruled out, not hypoxic With low-grade temperature patient smells of strong urine patient cannot complete a urine catch of any kind subsequently urine culture obtained by [place] catheter. Given mild thrombocytopenia Lyme screen ordered and negative blood cultures are also undertaken and continues on ceftriaxone 2000 mg daily. TIA/CVA workup: CT head shows chronic small vessel disease. CTA head showed 20% distal ICA stenoses bilaterally. CTA neck shows 40% proximal left ICA narrowing Progressive dementia with behavioral and psychological symptoms/depression/dementia/confusion- Continue donepezil, memantine, sertraline Good improvement sleep and morning restfulness after given seroquel hs 01/20/24 to reduce sundowning will reduce dose once again to try to avoid sedation but continue to improve sleep. Patient's will stay with him to try to minimize Hypomagnesemia/dehydration/CKD- hydration and replete magnesium once again on 01/19/2024 Patient looks to have had a significant cognitive decline even prehospital is difficult to tell what is metabolic encephalopathy versus progression of dementia (2) Ambulatory dysfunction: Plan: Patient will need PT/OT assessment prior to discharge, and is aware that he would likely benefit from inpatient rehab (3) Thrombocytopenia: Plan: chronically low hovering 90-110 Plan Chronic stable hypertension, continue on lisinopril Chronic stable CAD on aspirin, atorvastatin Weight loss- pt has had a better diet since delerium is clearing CODE STATUS: DNR/DNI Admission and Anticipated Discharge Date Admission Date: January 18, 2024 Subjective Patient has markedly improved family at the bedside, much more awake and alert pt did poorly with therapy and family is reconsidering if they can care for him at home Physical Exam Physical Exam: Patient is able to look at me answer and more constructive manner. cardiac exam is regular his lungs are with diminished effort but sound be reasonably clear abdomen is scaphoid NABS no upper quadrant tenderness no lower quadrant tenderness no suprapubic tenderness Skin is with bruises from recent falling in various stages of healing Results & Data Results & Data Vital Signs (Past 12 Hours) Vital Signs Temp Pulse Resp BP Pulse Ox O2 Del Method 01/23/24 11:39 97.9 F 67 18 108/62 98 Room Air 01/23/24 07:40 Room Air 01/23/24 07:07 97.7 F 52 L 16 154/70 H 98 Room Air PG Care Time/CCT Total # of Minutes Spent Total Time Spent with Patient: Total time spent is greater than 50% in coordination of care (as documented) at patient's floor/unit and/or counseling patient: Coding Level of Care Code 18559 SUB INP/OBS CARE 2/35MIN Diagnoses Generalized weakness R53.1 Ambulatory dysfunction R26.2 Thrombocytopenia D69.6
[2024-01-24 07:42] LABS: Hematocrit (blood only) 30.6 % (42.0-52.0); Hemoglobin 10.2 g/dl (14.0-18.0); Mean Corpuscular Hemoglobin 31.2 pg (25.0-34.0); Mean Corpuscular Hgb Conc 33.3 g/dL (32.0-36.0); Mean Corpuscular Volume 93.6 fL (80.0-100.0); Mean Platelet Volume 10.5 fL (9.4-12.4); Platelet Count 103 K/uL (130-400); RDW Coefficient of Variation 11.9 % (11.5-14.5); RDW Standard Deviation 41.1 fL (36.4-46.3); Red Blood Count 3.27 M/uL (4.70-6.10)
--- NOTE | 2024-01-24 16:11 | Hospitalist Progress Note ---
Date of Service January 24, 2024 Assessment & Plan (1) Generalized weakness: Plan: Progressive generalized weakness/increasing frequency of falls/ambulatory dysfunction- concern for metabolic encephalopathy on top of dementia from rhinovirus infection present on admission pneumonia ruled out, not hypoxic With low-grade temperature patient smells of strong urine patient cannot complete a urine catch of any kind subsequently urine culture obtained by [place] catheter. Given mild thrombocytopenia Lyme screen ordered and negative blood cultures are also undertaken and continues on ceftriaxone 2000 mg daily. TIA/CVA workup: CT head shows chronic small vessel disease. CTA head showed 20% distal ICA stenoses bilaterally. CTA neck shows 40% proximal left ICA narrowing Progressive dementia with behavioral and psychological symptoms/depression/dementia/confusion- Continue donepezil, memantine, sertraline Good improvement sleep and morning restfulness after given seroquel hs 01/20/24 to reduce sundowning will reduce dose once again to try to avoid sedation but continue to improve sleep. Patient's and family will stay with him to try to minimize irritation Hypomagnesemia/dehydration/CKD- hydration and replete magnesium Patient looks to have had a significant cognitive decline even prehospital (2) Ambulatory dysfunction: Plan: Patient will need PT/OT assessment prior to discharge, and is aware that he would likely benefit from inpatient rehab (3) Thrombocytopenia: Plan: chronically low hovering 90-110 Plan Chronic stable hypertension, continue on lisinopril Chronic stable CAD on aspirin, atorvastatin Weight loss- pt has had a better diet since delerium is clearing family hopeful to take home with HH but did poorly with PT reasses this week CODE STATUS: DNR/DNI Admission and Anticipated Discharge Date Admission Date: January 18, 2024 Subjective Patient has markedly improved family at the bedside, much more awake and alert did not sleep well last night, will offer additional prn seroquel pt did poorly with therapy and family is reconsidering if they can care for him at home Physical Exam Physical Exam: Patient is able to look at me answer and more constructive manner. cardiac exam is regular his lungs are with diminished effort but sound be reasonably clear abdomen is scaphoid NABS no upper quadrant tenderness no lower quadrant tenderness no suprapubic tenderness Skin is with bruises from recent falling in various stages of healing Results & Data Results & Data Vital Signs (Past 12 Hours) Vital Signs Temp Pulse Resp BP Pulse Ox O2 Del Method 01/24/24 11:35 98.1 F 71 16 120/60 96 Room Air 01/24/24 09:27 Room Air 01/24/24 07:40 97.3 F L 55 L 16 121/65 98 Room Air 01/24/24 04:06 97.0 F L 58 L 18 119/49 L 98 Room Air PG Care Time/CCT Total # of Minutes Spent Total Time Spent with Patient: Total time spent is greater than 50% in coordination of care (as documented) at patient's floor/unit and/or counseling patient: Coding Level of Care Code 20765 SUB INP/OBS CARE 2/35MIN Diagnoses Generalized weakness R53.1 Ambulatory dysfunction R26.2 Thrombocytopenia D69.6
[2024-01-24] MEDS: QUEtiapine FUMARATE 25 MG TABLET PO PRN (23:34)
[2024-01-25 06:40] LABS: Hemoglobin 10.5 g/dl (14.0-18.0); Mean Corpuscular Hemoglobin 31.1 pg (25.0-34.0); Mean Corpuscular Hgb Conc 33.9 g/dL (32.0-36.0); Mean Corpuscular Volume 91.7 fL (80.0-100.0); Mean Platelet Volume 10.6 fL (9.4-12.4); Platelet Count 118 K/uL (130-400); RDW Coefficient of Variation 11.8 % (11.5-14.5); RDW Standard Deviation 40.2 fL (36.4-46.3); Red Blood Count 3.38 M/uL (4.70-6.10); White Blood Count 4.91 K/ul (4.8-10.8)
[2024-01-25 07:15] LABS: BUN Creatinine Ratio 22.4 (10-20); Calcium 9.5 mg/dl (8.6-10.3); Creatinine Clr Calc Pharmacy 74.5 ml/min; Est GFR (African American) 97.4 ml/min; Potassium 3.2 mmol/L (3.5-5.1)
[2024-01-25] MEDS: POTASSIUM CHLORIDE CRTAB 20 MEQ TABCR PO STA (09:16)
--- NOTE | 2024-01-25 11:42 | Hospitalist Progress Note ---
Date of Service January 25, 2024 Assessment & Plan (1) Generalized weakness: Plan: Continue OT and PT while hospitalized. Treat insomnia. Supportive care. (2) Ambulatory dysfunction: Plan: Continue OT and PT while hospitalized. [facility] (3) Thrombocytopenia: Plan: Chronic. Stable. Serial labs (4) Hypokalemia: Plan: Oral replacement ordered. Serial labs (5) Insomnia: Plan: Seroquel has been started at bedtime. Dosage uptitrated today, January 24 (6) Dementia: Plan: Aricept and Zoloft have been discontinued since Seroquel has been started. Supportive care Plan Eventual placement at [facility] when arrangements are finalized Admission and Anticipated Discharge Date Admission Date: January 18, 2024 Subjective Alert. Family in attendance including . No new problems. Potassium replacement given today, January 24. Zoloft and Aricept have been discontinued. Seroquel has been uptitrated to 25 mg at bedtime. Placement at [facility] is pending. Review of Systems 2 Review of Systems: Constitutional-no fever or chills ENT-no blurred vision, no double vision, no epistaxis, no sore throat Respiratory-no cough, no wheezing, no shortness of breath Cardiac-no palpitations, no chest pain, no syncope GI-no nausea, vomiting, diarrhea, melena, hematochezia -no urinary retention, no urinary incontinence, no dysuria, no hematuria Musculoskeletal-no joint pain, no muscle tenderness Skin-no bruising, no rashes, no pruritus Neuro-no isolated weakness, no paresthesia, no weakness Psych-no depression, no anxiety Physical Exam 2 Physical Exam: General-alert and oriented x1, no fever, no chills HEENT-head atraumatic and normocephalic, pupils equal and reactive to light, extraocular muscles intact Neck-no lymphadenopathy or thyromegaly, trachea midline Chest-clear to auscultation. No rales, wheezing or rhonchi Cardiac-regular rate and rhythm, normal S1 and S2 Abdomen-normal bowel sounds, no hepatosplenomegaly Extremities-no cyanosis, clubbing, or edema Neuro-cranial nerves II through XII intact, motor and sensory function within normal limits, strength symmetrical, no focal deficits Psych-normal affect, normal mood Results & Data Results & Data Vital Signs (Past 12 Hours) Vital Signs Temp Pulse Resp BP Pulse Ox O2 Del Method 01/25/24 08:04 Room Air 01/25/24 07:53 36.5 C 59 L 20 183/80 H 91 Room Air Laboratory Results 01/25/24 06:02 01/25/24 06:02 PG Care Time/CCT Total # of Minutes Spent Total Time Spent with Patient: Total time spent is greater than 50% in coordination of care (as documented) at patient's floor/unit and/or counseling patient: Coding Level of Care Code 92271 SUB INP/OBS CARE 3/50MIN Diagnoses Generalized weakness R53.1 Ambulatory dysfunction R26.2 Thrombocytopenia D69.6 Hypokalemia E87.6 Insomnia G47.00 Dementia F03.90
[2024-01-25] MEDS: QUEtiapine FUMARATE 25 MG TABLET PO SCH (20:37)
[2024-01-26 06:50] LABS: Hematocrit (blood only) 31.1 % (42.0-52.0); Hemoglobin 10.5 g/dl (14.0-18.0); Mean Corpuscular Hemoglobin 31.1 pg (25.0-34.0); Mean Corpuscular Hgb Conc 33.8 g/dL (32.0-36.0); Mean Platelet Volume 10.5 fL (9.4-12.4); Platelet Count 142 K/uL (130-400); RDW Coefficient of Variation 11.9 % (11.5-14.5); RDW Standard Deviation 40.4 fL (36.4-46.3); Red Blood Count 3.38 M/uL (4.70-6.10); White Blood Count 5.69 K/ul (4.8-10.8)
[2024-01-26 07:00] LABS: BUN Creatinine Ratio 22.7 (10-20); Calcium 9.4 mg/dl (8.6-10.3); Creatinine Clr Calc Pharmacy 65.9 ml/min; Est GFR (African American) 86.9 ml/min; Potassium 3.6 mmol/L (3.5-5.1)
--- NOTE | 2024-01-26 13:10 | Hospitalist Progress Note ---
Date of Service January 26, 2024 Assessment & Plan (1) Generalized weakness: Plan: Continue OT and PT while hospitalized. Insomnia resolved with Seroquel at bedtime. Supportive care. (2) Ambulatory dysfunction: Plan: Continue OT and PT while hospitalized. Eventual placement at [facility] for residential care (3) Thrombocytopenia: Plan: Chronic. Improved. Serial labs (4) Hypokalemia: Plan: Corrected with oral replacement. Serial labs (5) Insomnia: Plan: Seroquel has been started at bedtime. Now resolved (6) Dementia: Plan: Aricept and Zoloft have been discontinued since Seroquel has been started. Supportive care Plan Eventual placement at [facility] when arrangements are finalized. Hopefully tomorrow, January 26 Admission and Anticipated Discharge Date Admission Date: January 18, 2024 Subjective Alert. No distress. Patient's states he slept quite well last night. He is now on Seroquel 25 mg at bedtime. Platelet count improved to 142,000. Potassium improved to 3.6. Zoloft and Aricept have been discontinued now that he is on Seroquel. [facility]ful [facility] to [facility] tomorrow, January 26 Review of Systems 2 Review of Systems: Constitutional-no fever or chills ENT-no blurred vision, no double vision, no epistaxis, no sore throat Respiratory-no cough, no wheezing, no shortness of breath Cardiac-no palpitations, no chest pain, no syncope GI-no nausea, vomiting, diarrhea, melena, hematochezia -no urinary retention, no urinary incontinence, no dysuria, no hematuria Musculoskeletal-no joint pain, no muscle tenderness Skin-no bruising, no rashes, no pruritus Neuro-no isolated weakness, no paresthesia, no weakness Psych-no depression, no anxiety Physical Exam 2 Physical Exam: General-alert and oriented x1, no fever, no chills HEENT-head atraumatic and normocephalic, pupils equal and reactive to light, extraocular muscles intact Neck-no lymphadenopathy or thyromegaly, trachea midline Chest-clear to auscultation. No rales, wheezing or rhonchi Cardiac-regular rate and rhythm, normal S1 and S2 Abdomen-normal bowel sounds, no hepatosplenomegaly Extremities-no cyanosis, clubbing, or edema Neuro-cranial nerves II through XII intact, motor and sensory function within normal limits, strength symmetrical, no focal deficits Psych-normal affect, normal mood Results & Data Results & Data Vital Signs (Past 12 Hours) Vital Signs Temp Pulse Resp BP BP Pulse Ox O2 Del Method 01/26/24 12:14 Room Air 01/26/24 11:48 36.9 C 17 125/70 96 Room Air 01/26/24 07:45 36.6 C 53 L 17 167/76 H 99 Room Air Laboratory Results 01/26/24 06:03 01/26/24 06:03 PG Care Time/CCT Total # of Minutes Spent Total Time Spent with Patient: Total time spent is greater than 50% in coordination of care (as documented) at patient's floor/unit and/or counseling patient: Coding Level of Care Code 19216 SUB INP/OBS CARE 2/35MIN Diagnoses Generalized weakness R53.1 Ambulatory dysfunction R26.2 Thrombocytopenia D69.6 Hypokalemia E87.6 Insomnia G47.00 Dementia F03.90
[2024-01-27 06:16] LABS: Hematocrit (blood only) 31.5 % (42.0-52.0); Hemoglobin 10.5 g/dl (14.0-18.0); Mean Corpuscular Hgb Conc 33.3 g/dL (32.0-36.0); Mean Corpuscular Volume 92.9 fL (80.0-100.0); Mean Platelet Volume 9.9 fL (9.4-12.4); Platelet Count 142 K/uL (130-400); RDW Standard Deviation 41.1 fL (36.4-46.3); Red Blood Count 3.39 M/uL (4.70-6.10); White Blood Count 6.57 K/ul (4.8-10.8)
[2024-01-27 06:37] LABS: Calcium 9.5 mg/dl (8.6-10.3); Creatinine Clr Calc Pharmacy 60.8 ml/min; Est GFR (Non-African American) 68.1 ml/min; Potassium 3.8 mmol/L (3.5-5.1)
--- NOTE | 2024-01-27 11:27 | Discharge Summary ---
Date of Service January 27, 2024 Admission HPI Per Admitting Provider The patient is a 78-year-old male with a past medical history including significant dementia with behavioral and psychological symptoms, hypertension, hyperlipidemia, hypercholesterolemia, diabetes mellitus type 2, CAD, peripheral neuropathy and confusion. The patient presents to the emergency department with symptoms above, and what appears to be failure to thrive. The patient's wishes to stay with the patient in the hospital, as she is concerned that he will become aggressive, and he did begin to develop some aggression while in the emergency department. Principal Diagnosis Dementia with agitation, generalized weakness, multiple falls, hypovolemia, hypokalemia, insomnia Discharge Exam General-alert and oriented x1, no fever, no chills HEENT-head atraumatic and normocephalic, pupils equal and reactive to light, extraocular muscles intact Neck-no lymphadenopathy or thyromegaly, trachea midline Chest-clear to auscultation. No rales, wheezing or rhonchi Cardiac-regular rate and rhythm, normal S1 and S2 Abdomen-normal bowel sounds, no hepatosplenomegaly Extremities-no cyanosis, clubbing, or edema Neuro-cranial nerves II through XII intact, motor and sensory function within normal limits, strength symmetrical, no focal deficits Psych-normal affect, normal mood Discharge Data Allergies Allergy/AdvReac Type Severity Reaction Status Date / Time pregabalin Allergy Unknown disorientat Verified 12/08/23 12:32 ion Consultations 01/17/24 23:56 ED Decision to Admit Stat Ordered Studies 01/17/24 19:59 CT angio head w con Stat CT angio neck with con Stat CT head/brain wo con Stat Hospital Course (1) Generalized weakness: Continue OT and PT while hospitalized. Insomnia resolved with Seroquel at bedtime. Supportive care. (2) Ambulatory dysfunction: Continue OT and PT while hospitalized. [facility] (3) Thrombocytopenia: Chronic. Improved. Serial labs (4) Hypokalemia: Corrected with oral replacement. Serial labs (5) Insomnia: Seroquel has been started at bedtime. Now resolved (6) Dementia: Aricept and Zoloft have been discontinued since Seroquel has been started. Supportive care Plan Discharge to [facility] today, January 26 Total Time Total Time Spent Total Time Spent (In Minutes): 45 minutes Discharge Plan Discharge Items Patient Disposition: Transfer Senior Living Fac Reason For Visit: PROGESSIVE WEAKNESS, FALLS, HYPOMAG, RHINOVIRUS Discharge Diagnosis: Dementia with agitation, insomnia, hypokalemia, hypovolemia Activity: Resume your previous activity Non-emergency contact: Primary Care Provider Call non-emergency contact if: you have any medication questions and your symptoms worsen Follow-up/Referrals: Jm Hendricks, [Primary Care Provider] - Diet: Regular Addtl Attending Provider Instructions: Seroquel is new. Zoloft and Aricept have been discontinued Pending Studies at Discharge: No Stand-Alone Forms: [facility], [facility] Skilled Items Patient informed of condition?: Yes DNR: Yes Discharge Level of Care: Skilled Communicable Disease: No Discharge Prognosis: Stable Lines: None Urinary Catheter: No Medications and DC Order Prescriptions: New quetiapine 25 mg Tablet 25 mg PO HS Qty: 30 0RF Continued hydrochlorothiazide 25 mg tablet 25 mg PO DAILY Qty: 90 3RF metformin 1,000 mg tablet 1,000 mg PO BID Qty: 180 3RF donepezil 10 mg tablet 10 mg PO DAILY Qty: 90 3RF lisinopril [Zestril] 20 mg tablet 20 mg PO BID Qty: 180 3RF atorvastatin 40 mg tablet 40 mg PO DAILY Qty: 90 3RF cyanocobalamin (vitamin B-12) [Vitamin B-12] 1,000 mcg tablet 1,000 mcg PO DAILY aspirin [Aspirin Low-Strength] 81 mg Tablet,Delayed Release (Dr/Ec) 81 mg PO DAILY Discontinued sertraline 100 mg tablet 100 mg PO DAILY 90 Days Qty: 90 1RF memantine 10 mg tablet 10 mg PO BID Qty: 180 3RF Discharge Orders: Discharge Order (Routine); Ordered 01/27/24 Ordered By: Jc Whittaker Admission Data Admit Date/Time: 01/18/24 01:08 Attending Provider: Jc Whittaker Admit Provider: Silvestre Cowan Primary Care Provider: Jm Hendricks Other Providers: Silvestre Cowan; [facility] Fax; [facility] Coding Level of Care Code 31660 INP/OBS DISCH >30 MIN Diagnoses Generalized weakness R53.1 Ambulatory dysfunction R26.2 Thrombocytopenia D69.6 Hypokalemia E87.6 Insomnia G47.00 Dementia F03.90
== END 2024-01-27 13:49 | DRG 884 ==
LOC: ED 19:41 → EDINP 01-18 01:08 → SUATTDRO 01-18 01:08 → 2W 01-18 02:11